=== PATIENT | female | born 1965 | race Caucasian/White ===

== ENCOUNTER 2022-12-22 09:32 | Emergency (ER) | payer BC ==
--- OUTSIDE RECORDS SUMMARY | 2022-12-22 09:34 | XMS REPORT | Continuity of Care Document ---
:1965 Author Organization [facility] t Address [address] [place] [address] Care Team Providers Name Role Phone JN PALUMBO Primary Care Physician Unavailable Arvind Arteaga MD Attending Clinician ARVIND ARTEAGA Attending Clinician Unavailable ARVIND ARTEAGA Admitting Clinician Unavailable Payers Payer Name Policy Type Policy Number Effective Date Expiration Date S ource Problems This patient has no known problems. Allergies, Adverse Reactions, Alerts Allergy Allergy Status Severity Reaction(s) Onset Inactive Treating Comm ents Source Name Type Date Date Clinician Amoxicil Propensi Active Nausea Univer s meenakshi-Pot ty to and/or 5-11 ity of Clavulan adverse Vomiting 00:00: [place] ate reaction 00 Medical s Branch AMOXICIL DRUG Active N/V Univers MEENAKSHI-POT 5-11 ity of CLAVULAN 00:00: [place] ATE 00 Medical Branch NO KNOWN Drug Active Univers ALLERGIE Class ity of S [place] [facility] Social History Social Habit Start Date Stop Date Quantity Comments Source Exposure to 2022-09-19 2022-09-29 Not sure [facility] SARS-CoV-2 (event) 00:00:00 09:38:00 Medica l Branch Sex Ass[birth year] [facility] 00:00:00 00:00:00 Medical Branch Smoking Status Start Date Stop Date Source Tobacco smoking consumption Univ [facility] Medical unknown Branch Medications Ordered Filled Start Stop Current Ordering Indication Dosage Frequency Signature Comments Components Source Medication Medication Date Date Medication? Clinician (SIG) Name Name FENTanyl PF 2022- No 75ug 75 mcg, Un elaina (SUBLIMAZE 5-11 05-11 Intramuscu it y of (PF)) 16:30: 15:42 lar, ONCE, [place] injection 00 :00 1 dose, On Medi olivia 75 mcg [facility] Branch 09/29/22 at 1130, STAT ketorolac 2022- No 30mg 30 mg, Unive rs (TORADOL) 09-29 Intramuscu ity of injection 16:30: 15:41 lar, ONCE, [place] 30 mg 00 :00 1 dose, On Medical Nannette Branch 09/29/22 at 1130, ALEIDA HYDROcodone 2022- Yes [id number] 1{tbl} Take 1 U nivers -acetaminop 09-29 tablet by it y of hen (NORCO) 00:00: 04:59 [place] 10-325 mg 00 :00 every 6 Medical tablet (six) Branch hours as needed for Pain (scale 4-6) for up to 7 days. Indication s: acute pain predniSONE 2022- Yes [id number] 20mg Take 1 Univers 20 mg 09-29 tablet by ity of tablet 00:00: 04:59 mouth [place] 00 :00 every Medical morning Branch for 5 days. Vital Signs Vital Name Observation Time Observation Value Comments Source Heart rate 2022-09-29 17:17:00 82 /min [facility] Respiratory rate 2022-09-29 17:17:00 18 /min [facility] Oxygen saturation in 2022-09-29 17:17:00 98 /min [facility] Arterial blood by [facility] Pulse oximetry Branch Systolic blood 2022-09-29 14:39:00 129 mm[Hg] Univer sity of pressure [facility] Diastolic blood 2022-09-29 14:39:00 88 mm[Hg] [facility] Body temperature 2022-09-29 14:39:00 37.11 Kassidy [facility] Body height 2022-09-29 14:39:00 167.6 cm [facility] Body weight 2022-09-29 14:39:00 81.647 kg [facility] BMI 2022-09-29 14:39:00 29.05 kg/m2 [facility] Procedures Procedure Date / Time Performed Performing Clinician Baldo carolina XR ANKLE 3+ VW LEFT 2022-09-29 16:00:00 Arvind Arteaga [facility] XR KNEE 3 VW LEFT 2022-09-29 16:00:00 Arvind Arteaga [facility] NOTICE OF PRIVACY 2022-09-29 14:33:24 Doctor Unassigned, No [facility] Name [facility] CONSENT/REFUSAL FOR 2022-09-29 14:32:45 Doctor Unassigned, No [facility] Name [facility] TREATMENT Encounters Start End Encounter Admission Attending Care Care Encounter Source Date/Time Date/Time Type Type Clinicians Facility Department ID 2022-09-29 2022-09-29 Emergency GORDY Arteaga [id number] Univers 09:40:00 12:18:00 Arvind ATWOOD [id number] i [facility] [id number] [facility] [id number] [facility] 084 Branch 2022-09-29 2022-09-29 Emergency X GORDY ARTEAGA ERT [id number] Univers 09:40:00 12:18:00 ARVIND kaur [facility] Results This patient has no known results.
[2022-12-22] MEDS ORDERED: ACETAMINOPHEN 500 MG TAB ONE (10:56)
--- NOTE | 2022-12-22 11:21 | RAD REPORT ---
EXAM DESCRIPTION: Anna Marie Single View12/22/2022 11:07 am CLINICAL HISTORY: cough COMPARISON: none FINDINGS: The lungs appear clear of acute infiltrate. The heart is normal size IMPRESSION: No acute abnormalities displayed
--- NOTE | 2022-12-22 11:22 | ER ---
Nurse's Notes [facility] Name: Maria Isabel Mills Age: 57 yrs Sex: Female : 1965 Arrival Date: 12/22/2022 Time: 09:32 Bed 6 Private MD: Jose Patel Diagnosis: Acute upper respiratory infection, unspecified Presentation: 12/22 09:43 Chief complaint: Patient states: cough, sore throat, body aches, fever. Coronavirus me1 screen: Vaccine status: Patient reports receiving the 2nd dose of the covid vaccine. cough unrelated to allergies, fatigue, fever, muscle pain. Ebola Screen: No symptoms or risks identified at this time. Initial Sepsis Screen: Does the patient meet any 2 criteria? No. Patient's initial sepsis screen is negative. Does the patient have a suspected source of infection? No. Patient's initial sepsis screen is negative. Risk Assessment: Do you want to hurt yourself or someone else? Patient reports no desire to harm self or others. Onset of symptoms was December 22, 2022. 09:43 Method Of Arrival: [place] [facility] 09:43 Acuity: TOMASZ 4 [facility] Triage Assessment: 09:57 General: Appears uncomfortable, ill, Behavior is calm, cooperative, appropriate for [facility] age. General: Reports chills for fever for feeling ill for fatigue for dry cough, sore throat that started yesterday. Pain: Complains of pain in generalized body aches. EENT: Reports sore throat. Neuro: Level of Consciousness is awake, alert, obeys commands, Oriented to person, place, time, situation. Cardiovascular: Capillary refill < 3 seconds Patient's skin is warm and dry. Respiratory: Respiratory effort is even, unlabored, Respiratory pattern is regular, symmetrical. Historical: - Allergies: 09:57 No Known Allergies; me1 09:52 No Known Allergies; dd1 - Home Meds: 09:52 omeprazole 10 mg Oral capsule,delayed release (e.c.) once for heartburn [Active]; dd1 Wellbutrin Oral for Unknown Reason [Active]; levothyroxine 100 mcg capsule 1 cap once for hypothyroidism [Active]; gabapentin 300 mg oral Tablet, Extended Release 24 hr once [Active]; - PMHx: 09:57 Hypothyroidism; GERD; Depression; me1 09:52 GERD; Depression; Hypothyroidism; dd1 - PSHx: 09:57 gastric sleeve; me1 09:52 section; Cholecystectomy; Operative procedure on knee; dd1 - Immunization history:: Adult Immunizations up to date, Adult Immunizations . - Social history:: Smoking status: Patient/guardian denies using tobacco, Stopped _ months ago 4 Smoking status: Patient/guardian denies using tobacco, Stopped _ months ago 3. Screenin:00 [facility] ED Fall Risk Assessment (Adult) History of falling in the last 3 months, ko1 including since admission No falls in past 3 months (0 pts) Confusion or Disorientation No (0 pts) Intoxicated or Sedated No (0 pts) Impaired Gait No (0 pts) Mobility Assist Device Used No (0 pt) Altered Elimination No (0 pt) Score/Fall Risk Level 0 - 2 = Low Risk Oriented to surroundings, Maintained a safe environment, Educated pt \T\ family on fall prevention, incl call for assistance when getting out of bed, Assessed \T\ reinforced patient's understanding of fall precautions, Provided non-skid footwear, Hourly rounding (assess needs \T\ fall precautionary measures) done, Used ambulatory aids as needed (educated on \T\ assisted with), Used gait belt as appropriate. Abuse screen: Denies threats or abuse. Denies injuries from another. Nutritional screening: No deficits noted. Tuberculosis screening: No symptoms or risk factors identified. Assessment: 10:00 General: Appears in no apparent distress. uncomfortable, ill, Behavior is calm, ko1 cooperative, appropriate for age. Pain: Complains of pain in generalized. Neuro: No deficits noted. Cardiovascular: No deficits noted. Respiratory: Reports cough that is non-productive. GI: No deficits noted. : No deficits noted. EENT: Reports nasal congestion pain in forehead. Derm: No deficits noted. Musculoskeletal: No deficits noted. Vital Signs: 09:45 BP 99 / 75; Pulse 82; Resp 17; Temp 98.7; Pulse Ox 100% ; Weight 81.19 kg; Height 5 ft. me1 6 in. ; 09:58 BP 119 / 71; Pulse 75; Resp 16; Temp 99.6; Pulse Ox 98% ; Weight 81.65 kg; Height 5 ft. dd1 6 in. ; Pain 7/10; 11:06 BP 144 / 88; Pulse 78; Resp 18; Pulse Ox 99% ; ko1 09:58 Body Mass Index 29.05 (81.65 kg, 167.64 cm) dd1 09:58 Pain Scale: Adult dd1 ED Course: 09:34 Patient arrived in ED. mr 09:34 Jose Patel MD is Private Physician. mr 09:35 Roma Burks FNP-C is [facility]. kb 09:36 Ariel Sun MD is Attending Physician. kb 09:41 Suzanne Valera, RN is Primary Nurse. ko1 09:45 Triage completed. me1 09:45 Arm band placed on Patient placed in waiting room. me1 09:52 SARS-COV-2 RT PCR Sent. dd1 09:52 Flu Sent. dd1 10:00 SARS-COV-2 RT PCR Sent. dd1 10:00 Flu Sent. dd1 10:00 Patient has correct armband on for positive identification. Bed in low position. Call ko1 light in reach. Provided Education on: na. Pulse ox on. NIBP on. Door closed. Noise minimized. Warm blanket given. 11:09 Chest Single View XRAY In Process Unspecified. EDMS 11:28 No provider procedures requiring assistance completed. IV discontinued, intact, ko1 bleeding controlled, No redness/swelling at site. Pressure dressing applied. Administered Medications: 10:49 Drug: Acetaminophen PO 1000 mg Route: PO; ko1 Medication: 10:00 VIS not applicable for this client. ko1 Outcome: 11:21 Discharge ordered by . kb 11:35 Discharged to home ambulatory. ko1 11:35 Condition: stable 11:35 Discharge instructions given to patient, Instructed on discharge instructions, follow up and referral plans. Demonstrated understanding of instructions, follow-up care. 11:35 Patient left the ED. ko1 Signatures: Dispatcher [employer] EDMS Roma Burks FNP-C FNP-Riaz GamaAna mr Suzanne Valera, RN RN ko1 Jenni Alonzo RN RN me1 Joshua Lynn RN RN dd1
--- NOTE | 2022-12-22 11:22 | EDPHYS ---
Physician Documentation [facility] Name: Maria Isabel Mills Age: 57 yrs Sex: Female : 1965 Arrival Date: 12/22/2022 Time: 09:32 Bed 6 Private MD: Jose Patel ED Physician Ariel Sun HPI: 12/22 12:23 This 57 yrs old Female presents to ER via Ambulatory with complaints of Cough. kb 12:23 The patient or guardian reports cough, that is intermittent, described as mild, flu kb symptoms, low-grade fever, myalgias. Onset: The symptoms/episode began/occurred last night. Severity of symptoms: At their worst the symptoms were moderate, in the emergency department the symptoms are unchanged. Modifying factors: The symptoms are alleviated by nothing, the symptoms are aggravated by nothing. Associated signs and symptoms: Pertinent positives: fever, rhinorrhea. The patient has not experienced similar symptoms in the past. The patient has not recently seen a physician. Pt reports cough, congestion, fever, chills, and bodyaches that started last night and were worse this morning. . Historical: - Allergies: 09:57 No Known Allergies; me1 09:52 No Known Allergies; dd1 - Home Meds: 09:52 omeprazole 10 mg Oral capsule,delayed release (e.c.) once for heartburn [Active]; dd1 Wellbutrin Oral for Unknown Reason [Active]; levothyroxine 100 mcg capsule 1 cap once for hypothyroidism [Active]; gabapentin 300 mg oral Tablet, Extended Release 24 hr once [Active]; - PMHx: 09:57 Hypothyroidism; GERD; Depression; me1 09:52 GERD; Depression; Hypothyroidism; dd1 - PSHx: 09:57 gastric sleeve; me1 09:52 section; Cholecystectomy; Operative procedure on knee; dd1 - Immunization history:: Adult Immunizations up to date, Adult Immunizations . - Social history:: Smoking status: Patient/guardian denies using tobacco, Stopped _ months ago 4 Smoking status: Patient/guardian denies using tobacco, Stopped _ months ago 3. ROS: 12:08 Abdomen/GI: Negative for abdominal pain, nausea, vomiting, diarrhea, and constipation. kb 12:08 Constitutional: Positive for body aches, chills, fever, malaise. 12:08 ENT: Positive for rhinorrhea, sinus congestion. 12:08 Respiratory: Positive for cough. 12:08 All other systems are negative. Exam: 12:08 Constitutional: This is a well developed, well nourished patient who is awake, alert, kb and in no acute distress. Head/Face: Normocephalic, atraumatic. ENT: Moist Mucous membranes Cardiovascular: Regular rate and rhythm with a normal S1 and S2. No gallops, murmurs, or rubs. No pulse deficits. Respiratory: Respirations even and unlabored. No increased work of breathing. Talking in full sentences Skin: Warm, dry with normal turgor. Normal color. MS/ Extremity: Pulses equal, no cyanosis. Neurovascular intact. Full, normal range of motion. Neuro: Awake and alert, GCS 15, oriented to person, place, time, and situation. Moves all extremities. Normal gait. Vital Signs: 09:45 BP 99 / 75; Pulse 82; Resp 17; Temp 98.7; Pulse Ox 100% ; Weight 81.19 kg; Height 5 ft. me1 6 in. ; 09:58 BP 119 / 71; Pulse 75; Resp 16; Temp 99.6; Pulse Ox 98% ; Weight 81.65 kg; Height 5 ft. dd1 6 in. ; Pain 7/10; 11:06 BP 144 / 88; Pulse 78; Resp 18; Pulse Ox 99% ; ko1 09:58 Body Mass Index 29.05 (81.65 kg, 167.64 cm) dd1 09:58 Pain Scale: Adult dd1 MDM: 09:36 Patient medically screened. kb 12:09 Data reviewed: vital signs, nurses notes. kb 12:23 Differential Diagnosis: Bronchitis Influenza Upper Respiratory Infection Pneumonia kb Other covid. Counseling: I had a detailed discussion with the patient and/or guardian regarding: the historical points, exam findings, and any diagnostic results supporting the discharge/admit diagnosis, lab results, radiology results, the need for outpatient follow up, a family practitioner, to return to the emergency department if symptoms worsen or persist or if there are any questions or concerns that arise at home. 12/22 09:39 Order name: Flu; Complete Time: 10:35 kb 12/22 09:39 Order name: SARS-COV-2 RT PCR; Complete Time: 10:35 kb 12/22 10:35 Order name: Chest Single View XRAY; Complete Time: 11:21 kb Administered Medications: 10:49 Drug: Acetaminophen PO 1000 mg Route: PO; ko1 Disposition: 16:49 I reviewed the patient's care provided by Advanced Practice Provider \T\ agree w/ the cp3 diagnosis \T\ care plan. I personally saw the pt \T\ performed a substantive portion of the visit, incldng all aspects of the (History/Exam/Medical Decision Making). Disposition Summary: 12/22/22 11:21 Discharge Ordered Location: Home kb Condition: Stable kb Diagnosis - Acute upper respiratory infection, unspecified kb Followup: kb - With: Emergency Department - When: As needed - Reason: Worsening of condition Followup: kb - With: Private Physician - When: 2 - 3 days - Reason: Recheck today's complaints, Continuance of care, Re-evaluation by your physician Discharge Instructions: - Discharge Summary Sheet kb - Upper Respiratory Infection, Adult, [id number] kb - Viral Respiratory Infection, [id number] kb Forms: - Work release form kb - Medication Reconciliation Form kb - Thank You Letter kb - Antibiotic Education kb - Prescription Opioid Use kb - Patient Portal Instructions kb Signatures: Dispatcher [employer] Roma Juan, PROFESSOR OF FINANCE-C PROFESSOR OF FINANCE-Ariel Angel MD MD cp3 Suzanne Valera, IVAN RN ko1 Jenni Alonzo RN RN me1 Joshua Lynn, RN RN dd1
[2022-12-22 11:41] VITALS: TEMP 99.6
[2022-12-22 11:42] VITALS: BP 144/88; O2SAT 99
== END 2022-12-22 11:35 | disposition home or self-care (01) ==
LOC: ER 09:32
DX: J06.9 Acute upper respiratory infection, unspecified (principal); E03.9 Hypothyroidism, unspecified; F32.A Depression, unspecified; Z20.822 Contact with and (suspected) exposure to COVID-19
CPT/HCPCS: 71045; 87635; 87804; 99284

== ENCOUNTER 2023-02-24 16:33 | Emergency (ER) | payer BC ==
--- OUTSIDE RECORDS SUMMARY | 2023-02-24 16:35 | XMS REPORT | Continuity of Care Document ---
:1965 Author Organization [facility] t Address [address] [place] [address] [address] [place] [address] Care Team Providers Name Role Phone MADISONJN PONCE Yasmeen Primary Care Physician Unavailable Rocio Norman DO Attending Clinician ROCIO NORMAN Attending Clinician Unavailable GERDA LANDAVERDE Attending Clinician Unavailable Gerda Landaverde NP Attending Clinician Paco Arteaga MD Attending Clinician PACO ARTEAGA Attending Clinician Unavailable ROCIO NORMAN Admitting Clinician Unavailable GERDA LANDAVERDE Admitting Clinician Unavailable PACO ARTEAGA Admitting Clinician Unavailable Payers Payer Name Policy Type Policy Number Effective Date Expiration Date S ource Problems This patient has no known problems. Allergies, Adverse Reactions, Alerts Allergy Allergy Status Severity Reaction(s) Onset Inactive Treating Comm ents Source Name Type Date Date Clinician Amoxicil Propensi Active Nausea [facility] meenakshi-Pot ty to and/or 5-11 ity of Clavulan adverse Vomiting 00:00: [place] ate reaction 00 [facility] AMOXICIL DRUG Active N/V Univers MEENAKSHI-POT 5-11 ity of CLAVULAN 00:00: [place] ATE 00 [facility] NO KNOWN Drug Active Univers ALLERGIE Class [facility] Social History Social Habit Start Date Stop Date Quantity Comments Source Gender identity [facility] Sexual orientation [facility] Exposure to 2022-09-19 2022-09-29 Not sure [facility] SARS-CoV-2 (event) 00:00:00 09:38:00 Medica l Branch Sex Ass[birth year] At [birth year] [facility] 00:00:00 00:00:00 Medical Branch Smoking Status Start Date Stop Date Source Tobacco smoking consumption [facility] Branch Medications Ordered Filled Start Stop Current Ordering Indication Dosage Frequency Signature Comments Components Source Medication Medication Date Date Medication? Clinician (SIG) Name Name albuterol No 2.5mg 2.5 mg, Uni vers (PROVENTIL) 12-28 Inhalation i ty of 2.5 mg /3 15:15: 14:16 , ONCE, 1 [place] mL (0.083 00 :00 dose, On Medica l %) [facility] 12/28/22 Branch nebulizer at 1015, solution STAT 2.5 mg omeprazole Yes 40mg 40 mg, Unive rs (PRILOSEC) 12-26 Oral, ity of capsule 40 14:00: DAILY, [place] mg 00 First dose Medical on Mon Branch 12/26/22 at 0900, Until Discontinu ed, Routine levoFLOXaci No 750mg 750 mg, U nivers n 12-26 Oral, ONCE ity of (LEVAQUIN) 03:30: 02:50 NOW, 1 [place] tablet 750 00 :00 dose, On Medic al mg [place] 12/25/22 [place] at 2230, ALEIDA
Re ason for Anti-Infec tive: Documented Infection< br>Documen zain Infection Site: Respirator y
Durat ion of Therapy: 7 days acetaminoph No 1000mg 1,000 mg, Univers en 12-26 Oral, ity of (TYLENOL) 02:45: 02:49 ONCE, 1 [place] tablet [place] :00 dose, On Medical 1,000 mg [place] 12/25/22 Branc h at 2145, ALEIDA iopamidol 2022- No [id number] 75mL 75 mL, U nivers (ISOVUE 12-26 Intravenou ity o f 370-500 mL) 02:45: 02:45 s, ONCE, 1 [place] injection 00 :00 dose, On Medica l 75 mL [place] 12/25/22 Branch at 2145, Routine ketorolac 2022- No 30mg 30 mg, Unive rs (TORADOL) 12-26 Slow IV ity of injection 02:30: 01:33 Push, [place] 30 mg 00 :00 ONCE, 1 Medical dose, On Branch [place] 12/25/22 at 2130, Routine diphenhydrA 2022- No 25mg 25 mg, Uni vers MINE 12-26 Slow IV ity of (BENADRYL) 01:30: 01:34 Push, [place] injection 00 :00 ONCE, 1 Medical 25 mg dose, On Branch [place] 12/25/22 at 2030, STAT metoclopram 2022- No 10mg 10 mg, Uni vers simran HCl 12-26 Slow IV ity of (REGLAN) 01:30: 01:34 Push, [place] injection 00 :00 ONCE, 1 Medical 10 mg dose, On Branch [place] 12/25/22 at 2030, ALEIDA NaCl 0.9% 2022- No 1000mL at 999 Uni vers (NS) bolus 12-25 mL/hr, ity of infusion 23:15: 03:00 1,000 mL, [place] as 1,000 mL 00 :00 IV Medical Infusion, Branch ONCE, 1 dose, On [place] 12/25/22 at 1815, ALEIDA ipratropium 2022- No 3mL 3 mL, Univ ers -albuteroL 12-25 Inhalation it y of (DUONEB) 23:15: 01:27 , ONCE [place] 0.5 mg-3 00 :00 NOW, 1 Medical mg(2.5 mg dose, On Branch base)/3 mL [place] 12/25/22 nebulizer at 1815, solution 3 Routine mL dexamethaso 2022- No 10mg 10 mg, Uni vers ne sod phos 12-25 Slow IV ity of PF 22:30: 01:27 Push, [place] injection 00 :00 ONCE, 1 Medical 10 mg dose, On Branch [place] 12/25/22 at 1730, 1 mL levothyroxi Yes Univer s ne 100 mcg 12-25 ity of injection 22:22: [place] 20 Medical Branch levothyroxi 2023-0 Yes Univer s ne 100 mcg 8-06 ity of injection 22:22: [place] 20 Medical Branch benzonatate 3-0 Yes [id number] 200mg Take 2 Univers 100 mg 8-06 capsules ity of capsule 00:00: [place] mouth 3 [place] 00 (three) Medical times Branch daily as needed for Cough. ipratropium 3-0 Yes [id number] .5mg Inhale 2.5 Univers 0.02 % 8-06 mL every 8 ity of nebulizer 00:00: (eight) [place] solution 00 hours as Medical needed for Branch Wheezing, Shortness of Breath, Bronchospa sm or Chest tightness. albuterol 2022-0 Yes [id number] 2.5mg Inhale 3 Univers 2.5 mg /3 8-06 mL every 4 ity of mL (0.083 00:00: (four) [place] %) 00 hours as Medical nebulizer needed for Bran ch solution Wheezing, Shortness of Breath, Bronchospa sm or Chest tightness. May also nebulize one extra every 6 hours. benzonatate 3-0 Yes [id number] 200mg Take 2 Univers 100 mg 8-06 capsules ity of capsule 00:00: by mouth 3 [place] 00 (three) Medical times Branch daily as needed for Cough. ipratropium 2022-0 Yes [id number] .5mg Inhale 2.5 Univers 0.02 % 8-06 mL every 8 ity of nebulizer 00:00: (eight) [place] solution 00 hours as Medical needed for Branch Wheezing, Shortness of Breath, Bronchospa sm or Chest tightness. albuterol 3-0 Yes [id number] 2.5mg Inhale 3 Univers 2.5 mg /3 8-06 mL every 4 ity of mL (0.083 00:00: (four) [place] %) 00 hours as Medical nebulizer needed for Bran ch solution Wheezing, Shortness of Breath, Bronchospa sm or Chest tightness. May also nebulize one extra every 6 hours. levoFLOXaci 3-0 2023- Yes [id number] 750mg Take 1 Univers n 750 mg 12-25 08-14 tablet by ity o f tablet 00:00: 04:59 mouth [place] 00 :00 every 24 Medical (twenty-fo Branch ur) hours for 7 days. codeine-gua 2022- Yes 10mL Take 10 mL Univers ifenesin 12-2514 by mouth ity of 10-100 mg/5 00:00: 04:59 every 6 [place] mL oral 00 :00 (six) Medical solution hours as Branch needed for Cough for up to 7 days. Indication s: cough levoFLOXaci 2022- Yes [id number] 750mg Take 1 Univers n 750 mg 12-25 tablet by ity o f tablet 00:00: 04:59 mouth [place] 00 :00 every 24 Medical (twenty-fo Branch ur) hours for 7 days. codeine-gua 2022- Yes 10mL Take 10 mL Univers ifenesin 12-25 by mouth ity of 10-100 mg/5 00:00: 04:59 every 6 [place] mL oral 00 :00 (six) Medical solution hours as Branch needed for Cough for up to 7 days. Indication s: cough predniSONE 2022- Yes [id number] 20mg Take 1 Univers 20 mg 12-25 tablet by ity of tablet 00:00: 04:59 mouth in [place] 00 :00 the Medical morning Branch and 1 tablet in the evening. Do all this for 5 days. predniSONE 2022- Yes [id number] 20mg Take 1 Univers 20 mg 12-25 tablet by ity of tablet 00:00: 04:59 mouth in [place] 00 :00 the Medical morning Branch and 1 tablet in the evening. Do all this for 5 days. ergocalcife 2022-0 Yes [facility] s rol, - ity of vitamin d2, 00:00: [place] 1,250 mcg 00 Medical (50,000 Branch unit) capsule ergocalcife 2022-0 Yes Univer s rol, 6-06 ity of vitamin d2, 00:00: [place] 1,250 mcg 00 Medical (50,000 Branch unit) capsule LORazepam 2022-0 Yes TAKE ONE Univ ers 0.5 mg 6-01 (1) ity of tablet 00:00: TABLET(S) [place] 00 BY MOUTH Medical DAILY Branch NEEDED. LORazepam 2022-0 Yes TAKE ONE Univ ers 0.5 mg 6-01 (1) ity of tablet 00:00: TABLET(S) [place] 00 BY MOUTH Medical DAILY Branch NEEDED. atorvastati Yes 20mg Take 1 Univ ers n 20 mg 5-31 tablet by ity of tablet 00:00: mouth in [place] 00 the Medical morning. Branch atorvastati Yes 20mg Take 1 Univ ers n 20 mg 5-31 tablet by ity of tablet 00:00: mouth in [place] 00 the Medical morning. Branch FENTanyl PF 2022- No 75ug 75 mcg, Un elaina (SUBLIMAZE 09-29 Intramuscu it y of (PF)) 16:30: 15:42 lar, ONCE, [place] injection 00 :00 1 dose, On Medi olivia 75 mcg [place] Branch 09/29/22 at 1130, STAT ketorolac 2022- No 30mg 30 mg, Unive rs (TORADOL) 09-29 Intramuscu ity of injection 16:30: 15:41 lar, ONCE, [place] 30 mg 00 :00 1 dose, On Medical [place] Branch 09/29/22 at 1130, ALEIDA HYDROcodone 2022- No [id number] 1{tbl} Take 1 U nivers -acetaminop 09-29 tablet by it y of hen (NORCO) 00:00: 04:59 mouth [place] 10-325 mg 00 :00 every 6 Medical tablet (six) Branch hours as needed for Pain (scale 4-6) for up to 7 days. Indication s: acute pain predniSONE 2022- No [id number] 20mg Take 1 Univers 20 mg 09-29 tablet by ity of tablet 00:00: 04:59 mouth [place] 00 :00 every Medical morning Branch for 5 days. buPROPion Yes Univers SR 5-11 ity of (WELLBUTRIN 00:00: [place] SR) 150 mg 00 Medical SR tablet Branch gabapentin Yes Univers 100 mg 5-11 ity of capsule 00:00: Medical Branch buPROPion Yes Univers SR 5-11 ity of (WELLBUTRIN 00:00: [place] SR) 150 mg 00 Medical SR tablet Branch gabapentin Yes Univers 100 mg 5-11 ity of capsule 00:00: [place] [facility] Vital Signs Vital Name Observation Time Observation Value Comments Source Respiratory rate 2022-12-28 14:23:00 18 /min Univ ers[facility] [place] [facility] Oxygen saturation in 2022-12-28 14:23:00 96 /min University of Arterial blood by [facility] Pulse oximetry Branch Systolic blood 2022-12-28 13:58:00 147 mm[Hg] Univer sity of pressure [place] [facility] Diastolic blood 2022-12-28 13:58:00 95 mm[Hg] Unive rsity of pressure [place] [facility] Heart rate 2022-12-28 13:58:00 73 /min [facility] [place] [facility] Body temperature 2022-12-28 13:58:00 36.72 Kassidy Univ [facility] [place] [facility] Body height 2022-12-28 13:58:00 167.6 cm [facility] [place] [facility] Body weight 2022-12-28 13:58:00 81.647 kg [facility] [place] [facility] BMI 2022-12-28 13:58:00 29.05 kg/m2 [facility] [place] [facility] Systolic blood 2022-12-26 03:19:00 132 mm[Hg] Univer sity of pressure [place] [facility] Diastolic blood 2022-12-26 03:19:00 81 mm[Hg] Unive rsity of pressure [place] [facility] Heart rate 2022-12-26 03:19:00 77 /min [facility] [place] [facility] Body temperature 2022-12-26 03:19:00 37.89 Kassidy [facility] [place] [facility] Respiratory rate 2022-12-26 03:19:00 23 /min Univ [facility] [place] [facility] Oxygen saturation in 2022-12-26 03:19:00 96 /min University of Arterial blood by [facility] Pulse oximetry Branch Body weight 2022-12-25 22:07:00 81.647 kg [facility] [place] [facility] BMI 2022-12-25 22:07:00 29.05 kg/m2 [facility] [place] [facility] Respiratory rate 2022-09-29 17:17:00 18 /min Univ [facility] [place] [facility] Oxygen saturation in 2022-09-29 17:17:00 98 /min University of Arterial blood by [facility] Pulse oximetry Branch Heart rate 2022-09-29 17:17:00 82 /min [facility] Systolic blood 2022-09-29 14:39:00 129 mm[Hg] Univer sity of pressure [facility] Diastolic blood 2022-09-29 14:39:00 88 mm[Hg] Unive rsity of pressure [facility] Body temperature 2022-09-29 14:39:00 37.11 Kassidy [facility] Body height 2022-09-29 14:39:00 167.6 cm [facility] Body weight 2022-09-29 14:39:00 81.647 kg [facility] BMI 2022-09-29 14:39:00 29.05 kg/m2 [facility] Procedures Procedure Date / Time Performed Performing Clinician [facility] e CONSENT/REFUSAL FOR 2022-12-28 13:53:15 Doctor Unassigned, No Un [facility] DIAGNOSIS AND Name Medical [place] TREATMENT CT CHEST PULMONARY 2022-12-26 01:52:00 Gerda Landaverde [facility] ANGIOGRAM Medical Branch ASSIGNMENT OF BENEFITS 2022-12-26 01:10:26 Doctor Unassigned, No [facility] Name Medical Branch LIPASE 2022-12-26 00:04:00 Gerda Landaverde [facility] TROPONIN I 2022-12-26 00:04:00 Gerda Landaverde [facility] COMP. METABOLIC PANEL 2022-12-26 00:04:00 Gerda Landaverde [facility] ([id number]) [facility] CBC WITH DIFF 2022-12-26 00:04:00 Gerda Landaverde [facility] D-DIMER 2022-12-26 00:04:00 Gerda Landaverde [facility] URINALYSIS 2022-12-26 00:04:00 Gerda Landaverde [facility] RAPID STREP SCREEN FOR 2022-12-26 00:04:00 Gerda Landaverde [facility] GROUP A Medical Branch RAPID INFLUENZA A/B 2022-12-26 00:04:00 Gerda Landaverde [facility] COVID-19 (ID NOW RAPID 2022-12-26 00:04:00 Gerda Landaverde [facility] TESTING) Medical Branch XR CHEST 2 VW 2022-12-25 22:45:08 Gerda Landaverde [facility] CONSENT/REFUSAL FOR 2022-12-25 22:04:08 Doctor Unassigned, No [facility] [place] DI[facility] AND Name Medical Branch TREATMENT XR ANKLE 3+ VW LEFT 2022-09-29 16:00:00 Paco Arteaga [facility] [place] [facility] XR KNEE 3 VW LEFT 2022-09-29 16:00:00 Paco Arteaga [facility] NOTICE OF PRIVACY 2022-09-29 14:33:24 Doctor Unassigned, No [facility] PRACTICES Name Medical Branch CONSENT/REFUSAL FOR 2022-09-29 14:32:45 Doctor Unassigned, No [facility] [place] DIAGNOSIS AND Name Medical Branch TREATMENT Encounters Start End Encounter Admission Attending Care Care Encounter Source Date/Time Date/Time Type Type Clinicians Facility Department ID 2022-12-28 2022-12-28 [id number] Univers 09:00:00 11:23:00 Rocio ATWOOD [id number] i ty [facility] [id number] [facility] [id number] [address] 2022-12-28 2022-12-28 [facility] [id number] Univers 09:00:00 11:23:00 [facility] 2022-12-25 2022-12-25 [facility] [id number] Univers 17:09:00 22:21:00 [facility] 2022-12-25 2022-12-25 [facility] [id number] Univers 17:09:00 22:21:00 Gerda ATWOOD [id number] ity [facility] [id number] [facility] [id number] [address] 2022-09-29 2022-09-29 [facility] [id number] Univers 09:40:00 12:18:00 Paco ATWOOD [id number] i ty of [place] [id number] [facility] [id number] [place] [id number] Branch 2022-09-29 2022-09-29 Emergency X IRINEO [facility] ERT [id number] Univers 09:40:00 12:18:00 PACO [facility]aur [facility] Results This patient has no known results.
[2023-02-24] MEDS ORDERED: MORPHINE 4 MG/ML SYR ONE (16:59)
[2023-02-24] MEDS ORDERED: NA CHLORIDE 0.9% 1,000 ML ONE (16:59)
[2023-02-24] MEDS ORDERED: ONDANSETRON 4 MG/2 ML VIAL ONE (16:59)
[2023-02-24 17:04] LABS: Absolute Lymphocytes (CBC) 3.6 K/uL (0.7-4.9); Hematocrit 38.6 % (36.0-45.0); Lymphocytes % 38.2 % (15.3-44.8); MPV 8.4 fL (7.6-11.3); Platelets 315 thou/uL (152-406); RBC Red Blood Cell Count 4.59 M/uL (3.86-4.86)
[2023-02-24 17:19] LABS: Albumin 3.6 g/dL (3.4-5.0); Bilirubin Total 0.3 mg/dL (0.2-1.0); Potassium 3.7 mEq/L (3.5-5.1); Protein, Total 7.2 g/dL (6.4-8.2)
[2023-02-24 17:51] LABS: Specific Gravity 1.007 (1.005-1.030); Urine Bacteria None Seen /HPF (<20); Urine Bilirubin NEGATIVE (Negative); Urine Blood Negative (Negative); Urine Clarity Turbid (Clear); Urine Color Colorless (Yellow); Urine Glucose NEGATIVE (Negative); Urine Protein NEGATIVE (Negative); Urine RBC <5 /HPF (None Seen); Urine Urobilinogen Normal (Normal)
--- NOTE | 2023-02-24 17:58 | RAD REPORT ---
EXAM DESCRIPTION: CT - Abdomen Pelvis W Contrast - 02/24/2023 5:47 pm CLINICAL HISTORY: Abdominal pain COMPARISON: none. TECHNIQUE: Computed axial tomography of the abdomen pelvis was obtained. 100 cc Isovue-300 was admin istered intravenously. Oral contrast was not requested which limits evaluation of bowel and appendix All CT scans are performed using dose optimization technique as appropriate and may include automated exposure control or mA/KV adjustment according to patient size. FINDINGS: Cholecystectomy. Postsurgical changes involve the stomach The liver,, pancreas, and adrenals appear unremarkable. Sub centimeter low-density splenic lesion Mild prominence of bilateral extrarenal pelves There is no evidence of diverticulitis. Normal appendix. No adnexal mass IMPRESSION: Mild prominence of bilateral extrarenal pelves may be physiologic. Mild partial UPJ obst ructions can have a similar appearance. Sub centimeter splenic lesion is nonspecific but probably benign.
[2023-02-24] MEDS ORDERED: DICYCLOMINE HCL 20 MG/2 ML AMP IM ONE (18:38)
[2023-02-24] MEDS ORDERED: FENTANYL CITR 100 MCG/2 ML ONE (18:38)
--- NOTE | 2023-02-24 20:12 | RAD REPORT ---
EXAM DESCRIPTION: US - Transvaginal Study Probe - 02/24/2023 7:50 pm CLINICAL HISTORY: Right pelvic pain COMPARISON: none FINDINGS: The uterus measures 6 x 3 x 4 cm. A fibroid is not seen. The endometrial stripe measures Right ovary normal in size and echotexture. Left ovary not seen secondary to overlying bowel gas The right and left adnexa unremarkable No significant free fluid is seen. IMPRESSION: Unremarkable pelvic ultrasound
--- NOTE | 2023-02-24 20:27 | EDPHYS ---
Physician Documentation [facility] Name: Maria Isabel Mills Age: 57 yrs Sex: Female : 1965 Arrival Date: 02/24/2023 Time: 16:33 Bed 12 Private MD: ED Physician Obey Cruz HPI: 02/24 16:46 This 57 yrs old Female presents to ER via Ambulatory with complaints of Abdominal Pain, sb4 Vomiting. 16:46 The patient presents with abdominal pain right lower quadrant. Onset: The sb4 symptoms/episode began/occurred 3 day(s) ago. The symptoms do not radiate. Associated signs and symptoms: Pertinent positives: nausea and vomiting, Pertinent negatives: diarrhea, dysuria, fever, hematuria. Patient reports right lower quadrant abdominal pain that began 3 days ago and is worsening. She endorses nausea and vomiting but declines any diarrhea or fever. Has a history of a cholecystectomy. Historical: - Allergies: 16:46 Augmentin; hb 16:46 Ultram; hb 16:46 tramadol; hb - PMHx: 16:46 Depression; GERD; Hypothyroidism; hb - PSHx: 16:46 section; Cholecystectomy; gastric sleeve; Operative procedure on knee; hb - Immunization history:: Adult Immunizations up to date. - Social history:: Smoking status: Patient denies any tobacco usage or history of. ROS: 16:46 Constitutional: Negative for fever, chills, and weight loss, sb4 16:46 Abdomen/GI: Positive for abdominal pain, nausea and vomiting, 16:46 All other systems are negative, Exam: 16:46 Constitutional: This is a well developed, well nourished patient who is awake, alert, sb4 and in no acute distress. Head/Face: Normocephalic, atraumatic. Eyes: Extra-ocular motions intact. Periorbital areas with no swelling, redness, or edema. ENT: Mucous membranes moist. Cardiovascular: Regular rate and rhythm with a normal S1 and S2. Respiratory: Lungs have equal breath sounds bilaterally, clear to auscultation and percussion. No rales, rhonchi or wheezes noted. No increased work of breathing, no retractions or nasal flaring. Skin: Warm, dry with normal turgor. Normal color with no rashes, no lesions, and no evidence of cellulitis. MS/ Extremity: Pulses equal, no cyanosis. Neurovascular intact. Full, normal range of motion. Neuro: Awake and alert, GCS 15, oriented to person, place, time, and situation. Motor strength 5/5 in all extremities. Sensory grossly intact. 16:46 Abdomen/GI: Inspection: abdomen appears normal, Bowel sounds: normal, Palpation: soft, moderate abdominal tenderness, in the right lower quadrant, voluntary guarding, is not appreciated, involuntary guarding, is not appreciated, Vital Signs: 16:43 BP 137 / 80; Pulse 75; Resp 16; Temp 98.4(O); Pulse Ox 100% on R/A; Weight 82.55 kg; hb Height 5 ft. 7 in. ; Pain 8/10; 20:47 Pulse 68; Temp 98.1; Pulse Ox 100% ; ap3 16:43 Body Mass Index 28.50 (82.55 kg, 170.18 cm) hb 16:43 Pain Scale: Adult hb MDM: 16:39 Patient medically screened. sb4 16:46 Differential diagnosis: appendicitis, bowel obstruction, diverticulitis, non-specific sb4 abd pain, Ureterolithiasis, urinary tract infection. 16:47 Differential diagnosis: Ovarian torsion, ovarian cyst. sb4 20:25 Data reviewed: vital signs, nurses notes, lab test result(s), radiologic studies, I sb4 have discussed the patient's presentation/case with the attending Emergency Department Physician; and as a result, I will discharge patient. Consideration of Admission/Observation Escalation of care including admission/observation considered. Counseling: I had a detailed discussion with the patient and/or guardian regarding the historical points, exam findings, and any diagnostic results supporting the discharge/admit diagnosis, the presence of at least one elevated blood pressure reading (>120/80) during this emergency department visit, lab results, radiology results, to return to the emergency department if symptoms worsen or persist or if there are any questions or concerns that arise at home. 02/24 16:42 Order name: CBC with Diff; Complete Time: 17:12 sb4 02/24 16:42 Order name: CMP; Complete Time: 17:19 sb4 02/24 16:42 Order name: Lipase; Complete Time: 17:19 sb4 02/24 16:42 Order name: UAM; Complete Time: 17:52 sb4 02/24 16:42 Order name: CT Abd/Pelvis - IV Contrast Only; Complete Time: 18:00 sb4 02/24 18:21 Order name: Transvaginal Study (probe); Complete Time: 20:16 sb4 02/24 16:42 Order name: IV Saline Lock; Complete Time: 16:44 sb4 02/24 16:42 Order name: Labs collected and sent; Complete Time: 16:44 sb4 Administered Medications: 16:53 Drug: NS 0.9% IV 1000 ml IV at 1 bolus Per protocol; 1000 mL bolus Route: IV; Rate: 1 ap3 bolus; Site: right antecubital; 16:53 Drug: Ondansetron IVP 4 mg IVP once; over 2 minutes Route: IVP; Site: right antecubital;ap3 18:35 Follow up: Response: No adverse reaction ap3 16:53 Drug: morphine IVP or IV 4 mg IVP once over 4 mins Route: IVP; Infused Over: 4 mins; ap3 Site: right antecubital; 18:34 Follow up: Response: No adverse reaction; Pain is decreased ap3 18:34 Drug: fentaNYL (PF) IVP 50 mcg IVP once Route: IVP; Site: right antecubital; ap3 19:42 Follow up: Response: No adverse reaction; Pain is decreased ap3 18:34 Drug: Dicyclomine IM 20 mg IM once Route: IM; Site: right gluteus; ap3 19:42 Follow up: Response: No adverse reaction; Pain is decreased ap3 Disposition Summary: 02/24/23 20:26 Discharge Ordered Notes: Location: Home sb4 Problem: new sb4 Symptoms: have improved sb4 Condition: Stable sb4 Diagnosis - Abdominal pain, unspecified sb4 Followup: sb4 - With: Private Physician - When: As needed - Reason: Recheck today's complaints, Re-evaluation by your physician Discharge Instructions: - Discharge Summary Sheet sb4 - Abdominal Pain, Adult sb4 Forms: - Work release form ap3 - Medication Reconciliation Form sb4 - Thank You Letter sb4 - Antibiotic Education sb4 - Prescription Opioid Use sb4 - Patient Portal Instructions sb4 - Leadership Thank You Letter sb4 Prescriptions: - acetaminophen-codeine 300-15 mg Oral tablet - take 1 tablet ORAL route every 6 hours; 15 tablet; Refills: 0, Product sb4 Selection Permitted Addendum: 02/26/2023 06:57 Co-signature as Attending Physician, Obey Cruz MD I reviewed the patient's care r n provided by the Advanced Practice Provider and agree with the diagnosis and treatment plan. Signatures: Dispatcher [employer] EDObey Hernandez MD MD rn Baxter, Heather RN Rach Marcelino RN RN ap3 Brown, Sophia, PA-C PA-C sb4
--- NOTE | 2023-02-24 20:27 | ER ---
Nurse's Notes [facility] Name: Maria Isabel Mills Age: 57 yrs Sex: Female : 1965 Arrival Date: 02/24/2023 Time: 16:33 Bed 12 Private MD: Diagnosis: Abdominal pain, unspecified Presentation: 02/24 16:43 Chief complaint: Intermittent sharp RLQ pain and nausea x 3 days, vomit x 2. hb Coronavirus screen: At this time, the client does not indicate any symptoms associated with coronavirus-19. Ebola Screen: No symptoms or risks identified at this time. Initial Sepsis Screen: Does the patient meet any 2 criteria? No. Patient's initial sepsis screen is negative. Does the patient have a suspected source of infection? No. Patient's initial sepsis screen is negative. Risk Assessment: Do you want to hurt yourself or someone else? Patient reports no desire to harm self or others. Onset of symptoms was February 21, 2023. 16:43 Method Of Arrival: Ambulatory hb 16:43 Acuity: TOMASZ 3 hb Historical: - Allergies: 16:46 Augmentin; hb 16:46 Ultram; hb 16:46 tramadol; hb - PMHx: 16:46 Depression; GERD; Hypothyroidism; hb - PSHx: 16:46 section; Cholecystectomy; gastric sleeve; Operative procedure on knee; hb - Immunization history:: Adult Immunizations up to date. - Social history:: Smoking status: Patient denies any tobacco usage or history of. Screenin:57 [facility] [place] ED Fall Risk Assessment (Adult) History of falling in the last 3 months, ap3 including since admission No falls in past 3 months (0 pts). Abuse screen: Denies threats or abuse. Nutritional screening: No deficits noted. Tuberculosis screening: No symptoms or risk factors identified. Assessment: 16:44 General: Appears uncomfortable, Behavior is cooperative, appropriate for age. Pain: ap3 Complains of pain in abdomen Pain currently is 8 out of 10 on a pain scale. Neuro: Level of Consciousness is awake, alert, obeys commands. Cardiovascular: Patient's skin is warm and dry. Respiratory: Airway is patent Respiratory effort is even, unlabored, Respiratory pattern is regular, symmetrical. GI: Abdomen is round non-distended, Abd is soft Reports lower abdominal pain, upper abdominal pain, nausea, vomiting. 19:41 Reassessment: Patient and/or family updated on plan of care and expected duration. Pain ap3 level reassessed. Patient is alert, oriented x 3, equal unlabored respirations, skin warm/dry/pink. 20:47 GI: Bowel sounds present X 4 quads. ap3 Vital Signs: 16:43 BP 137 / 80; Pulse 75; Resp 16; Temp 98.4(O); Pulse Ox 100% on R/A; Weight 82.55 kg; hb Height 5 ft. 7 in. ; Pain 8/10; 20:47 Pulse 68; Temp 98.1; Pulse Ox 100% ; ap3 16:43 Body Mass Index 28.50 (82.55 kg, 170.18 cm) hb 16:43 Pain Scale: Adult hb ED Course: 16:34 Patient arrived in ED. rg4 16:37 Rach Galeana RN is Primary Nurse. ap3 16:39 Enid Menjivar PA-C is PHCP. sb4 16:39 Obey Cruz MD is Attending Physician. sb4 16:44 Inserted saline lock: 22 gauge 24 gauge antecubital area, using aseptic technique. ap3 Blood collected. 16:45 Bed in low position. Call light in reach. Side rails up X 1. Adult w/ patient. Pulse ox ap3 on. NIBP on. Door closed. Noise minimized. 16:46 Triage completed. hb 16:56 Initial lab(s) drawn, by me, sent to lab. ap3 16:56 CBC with Diff Sent. ap3 16:56 CMP Sent. ap3 16:56 Lipase Sent. ap3 16:57 Arm band placed on right wrist. ap3 16:57 Provided Education on: medication prior to administration . ap3 17:49 CT Abd/Pelvis - IV Contrast Only In Process Unspecified. EDMS 19:52 Transvaginal Study (probe) In Process Unspecified. EDMS 20:47 No provider procedures requiring assistance completed. Patient did not have IV access ap3 during this emergency room visit. Administered Medications: 16:53 Drug: NS 0.9% IV 1000 ml IV at 1 bolus Per protocol; 1000 mL bolus Route: IV; Rate: 1 ap3 bolus; Site: right antecubital; 16:53 Drug: Ondansetron IVP 4 mg IVP once; over 2 minutes Route: IVP; Site: right antecubital;ap3 18:35 Follow up: Response: No adverse reaction ap3 16:53 Drug: morphine IVP or IV 4 mg IVP once over 4 mins Route: IVP; Infused Over: 4 mins; ap3 Site: right antecubital; 18:34 Follow up: Response: No adverse reaction; Pain is decreased ap3 18:34 Drug: fentaNYL (PF) IVP 50 mcg IVP once Route: IVP; Site: right antecubital; ap3 19:42 Follow up: Response: No adverse reaction; Pain is decreased ap3 18:34 Drug: Dicyclomine IM 20 mg IM once Route: IM; Site: right gluteus; ap3 19:42 Follow up: Response: No adverse reaction; Pain is decreased ap3 Medication: 16:57 VIS not applicable for this client. ap3 Outcome: 20:26 Discharge ordered by . sb4 20:47 Discharged to home ambulatory, with family, ap3 20:47 Condition: good 20:47 Discharge instructions given to patient, Instructed on discharge instructions, follow up and referral plans. medication usage, Demonstrated understanding of instructions, follow-up care, medications, Prescriptions given X 1, 20:48 Patient left the ED. ap3 Signatures: Dispatcher [employer] EDGay Roman RN RN hb Garcia, Rubi rg4 Rach Galeana RN RN ap3 Brown, Sophia, PARm PARm sb4
[2023-02-24 21:08] VITALS: BP 137/80; TEMP 98.4; O2SAT 100
== END 2023-02-24 20:48 | disposition home or self-care (01) ==
LOC: ER 16:33
DX: R10.31 Right lower quadrant pain (principal); R11.2 Nausea with vomiting, unspecified; Z88.1 Allergy status to other antibiotic agents; Z88.5 Allergy status to narcotic agent
CPT/HCPCS: 85025; 81001; 36415; 83690; 80053; 74177; 76830; 96375; 96372; 96374; 99284; Q9967; J0500; J3010; J2405; J7030

== ENCOUNTER → 2023-07-29 | Emergency (ER) | payer BC ==
[~2023-07-29] MED LIST: ALBUTEROL 2.5 MG/3 ML NEB SOL ONE; IPRATROPIUM BROM 0.5MG/2.5ML ONE
--- OUTSIDE RECORDS SUMMARY | 2023-07-29 13:04 | XMS REPORT | Continuity of Care Document ---
Author Name Unknown Address [address] [facility] [address] [place] [address] [facility] thconnect Address [address] [facility] [place] [address] Care Team Providers Care Electronic Test Technician Name Role Phone JN PALUMBO Primary Care Physician Unavaila Rocio Bob DO Attending Clinician [phone] ROCIO NORMAN Attending Clinician Unavailab GERDA King Attending Clinician Unavailable Gerda Landaverde NP Attending Clinician [phone] Paco Cabello MD Attending Clinician [phone] PACO CABELLO Attending Clinician Unavailable ROCIO NORMAN Admitting Clinician Unavailab GERDA King Admitting Clinician Unavailable PACO CABELLO Admitting Clinician Unavailable Payers Payer Name Policy Type Policy Number Effective Date Expirati on Date Source Allergies, Adverse Reactions, Alerts Allergy Name Allergy Type Status Severity Reaction(s) Onset Date Inactive Date Treating Clinician Comments Source Amoxicil meenakshi-Pot Clavulan ate Propensi ty to adverse reaction s Active Nausea and/or Vomiting 09-29 00:00: 00 [facility] AMOXICIL MEENAKSHI-POT CLAVULAN ATE DRUG Active N/V 09-29 00:00: 00 [facility] NO KNOWN ALLERGIE S Drug Class Active [facility] Social History Social Habit Start Date Stop Date Quantity Comments Source Gender identity [facility] Exposure to SARS-CoV-2 (event) 2022-09-19 00:00:00 2022-09-29 09:38:00 Not sure [facility] Sex Assigned At 1965 00:00:00 1965 00:00:00 [facility] Smoking Status Start Date Stop Date Source Tobacco smoking consumption unknown [facility] Medications Ordered Medication Name Filled Medication Name Start Date Stop Date Current Medication? Ordering Clinician Indication Dosage Frequency Signature (SIG) Comments Components Source albuterol (PROVENTIL) 2.5 mg /3 mL (0.083 %) nebulizer solution 2.5 mg 12-28 15:15: 00 12-28 14:16 :00 No 2.5mg 2.5 mg, Inhalation , ONCE, 1 dose, On Mon12/28/22 at 1015, STAT [facility] omeprazole (PRILOSEC) capsule 40 mg 12-26 14:00: 00 Yes 40mg 40 mg, Oral, DAILY, First dose on Mon12/26/22 at 0900, Until Discontinu ed, Routine [facility] levoFLOXaci n (LEVAQUIN) tablet 750 mg 12-26 03:30: 00 12-26 02:50 :00 No 750mg 750 mg, Oral, ONCE NOW, 1 dose, On Mon12/25/22 at 2230, ALEIDA
Re ason for Anti-Infec tive: Documented Infection< br>Documen zain Infection Site: Respirator y
Durat ion of Therapy: 7 days [facility] acetaminoph en (TYLENOL) tablet 1,000 mg 12-26 02:45: 00 12-26 02:49 :00 No 1000mg 1,000 mg, Oral, ONCE, 1 dose, On Mon12/25/22 at 2145, ALEIDA [facility] iopamidol (ISOVUE 370-500 mL) injection 75 mL 12-26 02:45: 00 12-26 02:45 :00 No [id number] 75mL 75 mL, Intravenou s, ONCE, 1 dose, On Mon12/25/22 at 2145, Routine [facility] ketorolac (TORADOL) injection 30 mg 12-26 02:30: 00 12-26 01:33 :00 No 30mg 30 mg, Slow IV Push, ONCE, 1 dose, On Mon12/25/22 at 2130, Routine [facility] diphenhydrA MINE (BENADRYL) injection 25 mg 12-26 01:30: 00 12-26 01:34 :00 No 25mg 25 mg, Slow IV Push, ONCE, 1 dose, On Mon12/25/22 at 2030, STAT [facility] metoclopram simran HCl (REGLAN) injection 10 mg 12-26 01:30: 00 12-26 01:34 :00 No 10mg 10 mg, Slow IV Push, ONCE, 1 dose, On Mon12/25/22 at 2030, ALEIDA [facility] NaCl 0.9% (NS) bolus infusion 1,000 mL 12-25 23:15: 00 12-26 03:00 :00 No 1000mL at 999 mL/hr, 1,000 mL, IV Infusion, ONCE, 1 dose, On Mon12/25/22 at 1815, ALEIDA [facility] ipratropium -albuteroL (DUONEB) 0.5 mg-3 mg(2.5 mg base)/3 mL nebulizer solution 3 mL 12-25 23:15: 00 12-26 01:27 :00 No 3mL 3 mL, Inhalation , ONCE NOW, 1 dose, On Mon12/25/22 at 1815, Routine [facility] dexamethaso ne sod phos PF injection 10 mg 12-25 22:30: 00 12-26 01:27 :00 No 10mg 10 mg, Slow IV Push, ONCE, 1 dose, On Mon12/25/22 at 1730, 1 mL [facility] levothyroxi ne 100 mcg injection 12-25 22:22: 20 Yes [facility] levothyroxi ne 100 mcg injection 12-25 22:22: 20 Yes [facility] benzonatate 100 mg capsule 12-25 00:00: 00 Yes [id number] 200mg Take 2 capsules by mouth 3 (three) times daily as needed for Cough. [facility] ipratropium 0.02 % nebulizer solution 12-25 00:00: 00 Yes [id number] .5mg Inhale 2.5 mL every 8 (eight) hours as needed for Wheezing, Shortness of Breath, Bronchospa sm or Chest tightness. [facility] albuterol 2.5 mg /3 mL (0.083 %) nebulizer solution 12-25 00:00: 00 Yes [id number] 2.5mg Inhale 3 mL every 4 (four) hours as needed for Wheezing, Shortness of Breath, Bronchospa sm or Chest tightness. May also nebulize one extra every 6 hours. [facility] benzonatate 100 mg capsule 12-25 00:00: 00 Yes [id number] 200mg Take 2 capsules by mouth 3 (three) times daily as needed for Cough. [facility] ipratropium 0.02 % nebulizer solution 12-25 00:00: 00 Yes [id number] .5mg Inhale 2.5 mL every 8 (eight) hours as needed for Wheezing, Shortness of Breath, Bronchospa sm or Chest tightness. [facility] albuterol 2.5 mg /3 mL (0.083 %) nebulizer solution 12-25 00:00: 00 Yes [id number] 2.5mg Inhale 3 mL every 4 (four) hours as needed for Wheezing, Shortness of Breath, Bronchospa sm or Chest tightness. May also nebulize one extra every 6 hours. [facility] levoFLOXaci n 750 mg tablet 12-25 00:00: 00 01-02 04:59 :00 No [id number] 750mg Take 1 tablet by mouth every 24 (twenty-fo ur) hours for 7 days. [facility] codeine-gua ifenesin 10-100 mg/5 mL oral solution 12-25 00:00: 00 01-02 04:59 :00 No 10mL Take 10 mL by mouth every 6 (six) hours as needed for Cough for up to 7 days. Indication s: cough [facility] levoFLOXaci n 750 mg tablet 12-25 00:00: 00 01-02 04:59 :00 No [id number] 750mg Take 1 tablet by mouth every 24 (twenty-fo ur) hours for 7 days. [facility] codeine-gua ifenesin 10-100 mg/5 mL oral solution 12-25 00:00: 00 01-02 04:59 :00 No 10mL Take 10 mL by mouth every 6 (six) hours as needed for Cough for up to 7 days. Indication s: cough [facility] predniSONE 20 mg tablet 12-25 00:00: 00 12-31 04:59 :00 No [id number] 20mg Take 1 tablet by mouth in the morning and 1 tablet in the evening. Do all this for 5 days. [facility] predniSONE 20 mg tablet 12-25 00:00: 00 12-31 04:59 :00 No [id number] 20mg Take 1 tablet by mouth in the morning and 1 tablet in the evening. Do all this for 5 days. [facility] ergocalcife rol, vitamin d2, 1,250 mcg (50,000 unit) capsule 10-25 00:00: 00 Yes [facility] ergocalcife rol, vitamin d2, 1,250 mcg (50,000 unit) capsule 10-25 00:00: 00 Yes [facility] LORazepam 0.5 mg tablet 10-20 00:00: 00 Yes TAKE ONE (1) TABLET(S) BY MOUTH DAILY NEEDED. [facility] LORazepam 0.5 mg tablet 10-20 00:00: 00 Yes TAKE ONE (1) TABLET(S) BY MOUTH DAILY NEEDED. [facility] atorvastati n 20 mg tablet 10-19 00:00: 00 Yes 20mg Take 1 tablet by mouth in the morning. [facility] atorvastati n 20 mg tablet 10-19 00:00: 00 Yes 20mg Take 1 tablet by mouth in the morning. [facility] FENTanyl PF (SUBLIMAZE (PF)) injection 75 mcg 09-29 16:30: 00 09-29 15:42 :00 No 75ug 75 mcg, Intramuscu lar, ONCE, 1 dose, On Nannette 09/29/22 at 1130, STAT [facility] ketorolac (TORADOL) injection 30 mg 09-29 16:30: 00 09-29 15:41 :00 No 30mg 30 mg, Intramuscu lar, ONCE, 1 dose, On Nannette 09/29/22 at 1130, ALEIDA [facility] HYDROcodone -acetaminop hen (NORCO) 10-325 mg tablet 09-29 00:00: 00 10-07 04:59 :00 No [id number] 1{tbl} Take 1 tablet by mouth every 6 (six) hours as needed for Pain (scale 4-6) for up to 7 days. Indication s: acute pain [facility] predniSONE 20 mg tablet 09-29 00:00: 00 10-05 04:59 :00 No [id number] 20mg Take 1 tablet by mouth every morning for 5 days. [facility] buPROPion SR (WELLBUTRIN SR) 150 mg SR tablet 09-29 00:00: 00 Yes [facility] gabapentin 100 mg capsule 09-29 00:00: 00 Yes [facility] buPROPion SR (WELLBUTRIN SR) 150 mg SR tablet 09-29 00:00: 00 Yes [facility] gabapentin 100 mg capsule 09-29 00:00: 00 Yes [facility] Vital Signs Vital Name Observation Time Observation Value Comments S ource Respiratory rate 2022-12-28 14:23:00 18 /min [facility] Oxygen saturation in Arterial blood by Pulse oximetry 2022-12-28 14:23:00 96 /min [facility] Systolic blood pressure 2022-12-28 13:58:00 147 mm[Hg] [facility] Diastolic blood pressure 2022-12-28 13:58:00 95 mm[Hg] [facility] Heart rate 2022-12-28 13:58:00 73 /min Un[facility] Body temperature 2022-12-28 13:58:00 36.72 Kassidy [facility] Body height 2022-12-28 13:58:00 167.6 cm [facility] Body weight 2022-12-28 13:58:00 81.647 kg [facility] BMI 2022-12-28 13:58:00 29.05 kg/m2 [facility] Systolic blood pressure 2022-12-26 03:19:00 132 mm[Hg] [facility] Diastolic blood pressure 2022-12-26 03:19:00 81 mm[Hg] [facility] Heart rate 2022-12-26 03:19:00 77 /min [facility] Body temperature 2022-12-26 03:19:00 37.89 Kassidy [facility] Respiratory rate 2022-12-26 03:19:00 23 /min [facility] Oxygen saturation in Arterial blood by Pulse oximetry 2022-12-26 03:19:00 96 /min [facility] Body weight 2022-12-25 22:07:00 81.647 kg [facility] BMI 2022-12-25 22:07:00 29.05 kg/m2 [facility] Respiratory rate 2022-09-29 17:17:00 18 /min [facility] Oxygen saturation in Arterial blood by Pulse oximetry 2022-09-29 17:17:00 98 /min [facility] Heart rate 2022-09-29 17:17:00 82 /min [facility] Systolic blood pressure 2022-09-29 14:39:00 129 mm[Hg] [facility] Diastolic blood pressure 2022-09-29 14:39:00 88 mm[Hg] [facility] Body temperature 2022-09-29 14:39:00 37.11 Kassidy [facility] Body height 2022-09-29 14:39:00 167.6 cm [facility] Body weight 2022-09-29 14:39:00 81.647 kg [facility] BMI 2022-09-29 14:39:00 29.05 kg/m2 [facility] Procedures Procedure Date / Time Performed Performing Clinicia n Source CONSENT/REFUSAL FOR DIAGNOSIS AND TREATMENT 2022-12-28 13:53:15 Doctor Unassigned, [place] [facility] CT CHEST PULMONARY ANGIOGRAM 2022-12-26 01:52:00 Gerda Landaverde [facility] ASSIGNMENT OF BENEFITS 2022-12-26 01:10:26 Docto r Unassigned, [place] [facility] LIPASE 2022-12-26 00:04:00 Gerda Landaverde [facility] TROPONIN I 2022-12-26 00:04:00 Gerda Landaverde [facility] COMP. METABOLIC PANEL ([id number]) 2022-12-26 00:04:00 Gerda Landaverde [facility] CBC WITH DIFF 2022-12-26 00:04:00 Gerda Landaverde [facility] D-DIMER 2022-12-26 00:04:00 Gerda Landaverde [facility] URINALYSIS 2022-12-26 00:04:00 Gerda Landaverde [facility] RAPID STREP SCREEN FOR GROUP A 2022-12-26 00:04:00 Gerda Landaverde [facility] RAPID INFLUENZA A/B 2022-12-26 00:04:00 Gerda Landaverde [facility] COVID-19 (ID NOW RAPID TESTING) 2022-12-26 00:04:00 Gerda Landaverde [facility] XR CHEST 2 VW 2022-12-25 22:45:08 Gerda Landaverde [facility] CONSENT/REFUSAL FOR DIAGNOSIS AND TREATMENT 2022-12-25 22:04:08 Doctor Unassigned, [place] [facility] XR ANKLE 3+ VW LEFT 2022-09-29 16:00:00 Sarai Cabello [facility] XR KNEE 3 VW LEFT 2022-09-29 16:00:00 Paco Cabello [facility] NOTICE OF PRIVACY PRACTICES 2022-09-29 14:33:24 Doctor Unassigned, [place] [facility] CONSENT/REFUSAL FOR DIAGNOSIS AND TREATMENT 2022-09-29 14:32:45 Doctor Unassigned, [place] [facility] Encounters Start Date/Time End Date/Time Encounter Type Admission Type Attending [facility] Care Department Encounter ID Source 2022-12-28 09:00:00 2022-12-28 11:23:00 Emergency Rocio Norman [facility] [id number] [id number] [facility] 2022-12-28 09:00:00 2022-12-28 11:23:00 Emergency X HALEYANGELA ROCIO [facility] ERT [id number] [facility] 2022-12-25 17:09:00 2022-12-25 22:21:00 Emergency X CHANGERDA RICH [facility] ERT [id number] [facility] 2022-12-25 17:09:00 2022-12-25 22:21:00 Emergency ChanGerda rich Yasmeen [facility] [id number] 4.2.7.2.686 [id number] [facility] 2022-09-29 09:40:00 2022-09-29 12:18:00 Emergency Paco Cabello [facility] [id number] [id number] [id number] [facility] 2022-09-29 09:40:00 2022-09-29 12:18:00 Emergency X JENNI PACO [facility] ERT [id number] [facility] Notes Date/Time Note Provider Source 2022-12-28 08:57:26 [id number] [id number] [id number]+[id number] -08-09T08:57:26 Diagnosed with bronchitis two days ago in ER. Given abx, breathing treatment, cough medicine, steroids. Did breathing treatment this AM. Still coughing and having pain. 05227-3Ldhiazfjk department Triage penwZK3887-24-50N47:58:20[facility] Triage [id number] .[id number] for patient thdc75413-8Vtnpvpamp department [id number] [id number] T08:58:201.2.840.865264.1.72.3.15| [id number] [facility] 2022-12-28 08:52:00 [id number] CJeLUBhLFgXP6r [id number]+0QVqgJHyr43ql4LT1079 -08-09T08:52:00 [facility] Emergency Department NotePatient Name: Cosmo Portillo of : 1965 57 year old femaleTreatment Room: [place] [address]Medical Record Number: [id number] Care Physician: Jn PalumboPatient Escorted by: Family [5]Mode of Arrival: Personal means [1]EMS Treatment Prior to ED Arrival: Travel and Exposure Screening:SymptomsDoes patient have any of these symptoms?: (not recorded)Exposure ScreeningHas patient had contact with someone with a communicable disease in the last month?: (not recorded)Diseases exposed to:: (not recorded)Is Patient ?: (not recorded)Exposure Date: (not recorded)Chief Complaint:Chief Complaint Patient presents with Pain History of Present Illness:[id number] WF with significant smoking history presents today coughing and chest pains that happen during coughing. The worst was this morning after she woke up. She states she as seen on Monday and was given albut neb, steroids, levaquin and tessalon perles. She has been taking them but her coughing seems to bee getting worse. Past Medical History/Immunizations:No past medical history on file. Allergies:Allergies Allergen Reactions Augmentin [Amoxicillin-Pot Clavulanate] Nausea and/or Vomiting Past Social History:Substance & Sexual Activity No substance use or sexual activity history on file. Past Surgical History:No past surgical history on file.Review of Systems: Review of Systems Constitutional: Negative for activity change, diaphoresis, fatigue, fever and weight gain. HENT: Negative for congestion, ear pain, rhinorrhea, sore throat, tinnitus and trouble swallowing. Eyes: Negative for discharge and visual disturbance. Respiratory: Positive for cough and chest tightness. Breasts: Negative for pain. Cardiovascular: Positive for chest pain. Negative for palpitations. Gastrointestinal: Negative for abdominal pain, nausea and vomiting. Genitourinary: Negative for dysuria, hematuria and difficulty urinating. Musculoskeletal: Negative for joint swelling. Skin: Negative for rash and wound. Neurological: Negative for dizziness and headaches. Psychiatric/Behavioral: Negative for agitation and confusion. The patient is not nervous/anxious. Hematological: Does not bruise/bleed easily. Endocrine: Negative for weight gain. Physical Exam: ED Triage Vitals [12/28/22 0858] Weight 81.6 kg (180 lb) Actual or estimated Estimated by patient/family report Height 1.676 m (5' 6") BP (!) 147/95 Pulse 73 Resp 20 Temp 36.7 ?C (98.1 ?F) Temp source Oral SpO2 97 % Measured on Room air Physical ExamVitals reviewed. Constitutional: Appearance: She is well-developed. HENT: Head: Normocephalic and atraumatic. Eyes: Conjunctiva/sclera: Conjunctivae normal. Cardiovascular: Rate and Rhythm: Normal rate and regular rhythm. Heart sounds: Normal heart sounds. No murmur heard.Pulmonary: Effort: Pulmonary effort is normal. Breath sounds: No stridor. Wheezing present. Comments: Non productive cough in room, wheezing could be from larynxNOT hypoxicAbdominal: General: Bowel sounds are normal. Palpations: Abdomen is soft. Tenderness: There is no abdominal tenderness. Musculoskeletal: General: Normal range of motion. Cervical back: Neck supple. Skin: General: Skin is warm and dry. Capillary Refill: Capillary refill takes less than 2 seconds. Neurological: Mental Status: She is alert and oriented to person, place, and time. Cranial Nerves: No cranial nerve deficit. Psychiatric: Behavior: Behavior normal. Radiology:XR CHEST 2 VW Preliminary Result EXAM: XR CHEST 2 VW COMPARISON: Radiograph dated 12/25/2022 HISTORY: cough FINDINGS: Lungs: Normal lung volumes. Mild bibasilar atelectasis. No pleural abnormalities are detected. Heart/Mediastinum: The cardiomediastinal silhouette is normal in size. Bones and soft tissues: No focal osseous lesions or acute osseous findings. IMPRESSION Mild bibasilar atelectasis. Preliminary Report Dictated by Resident: Terry Ortiz Lab Results:Lab Results - No data to displayEKG:If EKG completed, see Procedure Note. Orders and Treatments:Orders Placed This Encounter Procedures XR CHEST 2 VW Orders Placed This Encounter Medications ibuprofen (IBU) tablet 600 mg albuterol (PROVENTIL) 2.5 mg /3 mL (0.083 %) nebulizer solution 2.5 mg First Provider Eval:ED Events Date/Time Event User Comments 12/28/22 09 Medical Screening Begins ROCIO NORMAN MD -- 12/28/22 09 First Provider Evaluation ROCIO NORMAN MD -- No notes of EC Admission Criteria type on file.ED COURSEDiagnosis/Impression as of 12/28/22 1046 Cough in adult Chest wall pain Bronchitis Procedures: ProceduresMDM:Medical Decision MakingReviewed previous workup - large workup finished including CT PE scan - which was negative for PE and PNA.Patient is already been prescribed strong antibiotic (levaquin), steroids & neb treatments (for COPD) and tessalon perles and guaifensin (for bronchitis and cough). Reports compliance to meds.CXR completed to compare to previous-- nothing new presentEkg is normal sinus rhythm, rate 72, no signs of ischemiaAt this point, I'm not sure what I can offer. Given ibuprofen for chest wall pain which patient refused because she was told by a pharmacist she shouldn't take ibuprofen with her medications (for unknown reasons). Not hypoxic, will give neb treatment to see if it helps. Offered muscle relaxors and reassurance. Discharged to follow with PCP.Problems Addressed:Chest wall pain: acute illness or injuryCough in adult: acute illness or injuryAmount and/or Complexity of Data ReviewedIndependent Historian: spouseExternal Data Reviewed: labs, radiology, ECG and notes.Radiology: ordered. Decision-making details documented in ED Course.ECG/medicine tests: ordered and independent interpretation performed.RiskPrescription drug management. Flowsheet Documentation: Scoring Tools: No data recorded Disposition/Condition:ED Disposition None Discharge Medications:Patient's Medications START taking these medications No medications on file CONTINUE taking these medications which have NOT CHANGED ALBUTEROL 2.5 MG /3 ML (0.083 %) NEBULIZER SOLUTION Inhale 3 mL every 4 (four) hours as needed for Wheezing, Shortness of Breath, Bronchospasm or Chest tightness. May also nebulize one extra every 6 hours. ATORVASTATIN 20 MG TABLET Take 1 tablet by mouth in the morning. BENZONATATE 100 MG CAPSULE Take 2 capsules by mouth 3 (three) times daily as needed for Cough. BUPROPION SR (WELLBUTRIN SR) 150 MG SR TABLET CODEINE-GUAIFENESIN 10-100 MG/5 ML ORAL SOLUTION Take 10 mL by mouth every 6 (six) hours as needed for Cough for up to 7 days. Indications: cough ERGOCALCIFEROL, VITAMIN D2, 1,250 MCG (50,000 UNIT) CAPSULE GABAPENTIN 100 MG CAPSULE IPRATROPIUM 0.02 % NEBULIZER SOLUTION Inhale 2.5 mL every 8 (eight) hours as needed for Wheezing, Shortness of Breath, Bronchospasm or Chest tightness. LEVOFLOXACIN 750 MG TABLET Take 1 tablet by mouth every 24 (twenty-four) hours for 7 days. LEVOTHYROXINE 100 MCG INJECTION LORAZEPAM 0.5 MG TABLET TAKE ONE (1) TABLET(S) BY MOUTH DAILY NEEDED. PREDNISONE 20 MG TABLET Take 1 tablet by mouth in the morning and 1 tablet in the evening. Do all this for 5 days. START taking Modified Medications as Prescribed No medications on file STOP taking these medications No medications on file Follow-up:Electronically signed by: Rocio Norman DO12/28/22 1045 [id number] Emergency department [id number]:45:34[facility] Emergency department [id number] .[id number] for patient uwyt68404-6Okmrbpoww department Note[id number] 01HFCNDUXVINNHVGSVYRBXRW5393-56-85 T10:45:341.2.840.351695.1.72.3.15| [id number] [id number] [facility] 2022-12-25 22:20:14 [id number]+[id number] PUF/CrVyP75L2W +fOUZmuR4CpHacGfE6MgqFBsuCbiOJ3463 -08-06T22:20:14 DC instructions given to patient. Patient agree with POC and to follow up with PCP. IV DC with no complications=. Pt has no questions at this time. 14580-9Liemjozhx department BnowYO3332-48-83P15:20:55[facility]ly [facility] department [id number] .[id number]|[id number] for patient [id number] Moses GARCIA[id number] 36MIKSORFXBCHZTGGECXTXVY8552-15-80 T22:20:551.2.840.518120.1.72.3.15| [id number] [id number] Rusty Lopes RN [facility] 2022-12-25 17:06:43 gwIuGlepf85wZ33vfnWw 50UfsRz2XDoQtp 4zWlEUAjv2OwYQqOKgy2rvFNvJpoBA8662 -08-06T17:06:43 Pt arrived via private car with c/o generalized weakness, cough and sob with exertion. Pt [facility] and arrived at 95% on room air. States she took a home covid test today that was negative. States she took mucinex this am. Reports the symptoms have been ongoing since . 33559-4Ljulrrbld department Triage lfypGH3787-61-04F35:09:28[facility] department Triage [id number] .2.342271|[id number] for patient bzjj69508-6Okdbhijha department [id number] L Barker RN[address] Cj[id number] 88DGXBUMRMWBYWROOAIOSYHC7820-70-25 T17:09:281.2.840.264333.1.72.3.15| 1.2.840.966956.1.13.104.2.7.2.7278 [id number] Celia Frederick RN [facility]
[2023-07-29 13:38] LABS: SARS-CoV-2 Antigen Rapid Res Negative (Negative)
--- NOTE | 2023-07-29 13:40 | RAD REPORT ---
EXAM DESCRIPTION: RAD - Chest Single View - 07/29/2023 1:35 pm CLINICAL HISTORY: COUGH COMPARISON: <Comparisons> FINDINGS: Lines: None. Lungs: No evidence of edema or pneumonia. Pleural: No significant pleural effusions or pneumothorax. Cardiac: The heart size is within normal limits. Mediastinum: Within normal limits. Bones: No acute fractures. Other: None IMPRESSION: No acute cardiopulmonary disease.
--- NOTE | 2023-07-29 13:58 | ER ---
Nurse's Notes [facility] Name: Maria Isabel Mills Age: 57 yrs Sex: Female : 1965 Arrival Date: 07/29/2023 Time: 13:01 Bed 19 Private MD: Diagnosis: Acute bronchitis, unspecified Presentation: 07/28 13:08 Chief complaint: Patient states: Sore throat since Monday, along with cough, nj1 congestion, fatigued. Coronavirus screen: Vaccine status: Patient reports receiving the 2nd dose of the covid vaccine. Ebola Screen: Patient denies travel to an Ebola-affected area in the 21 days before illness onset. Initial Sepsis Screen: Does the patient meet any 2 criteria? No. Patient's initial sepsis screen is negative. Does the patient have a suspected source of infection? No. Patient's initial sepsis screen is negative. Risk Assessment: Do you want to hurt yourself or someone else? Patient reports no desire to harm self or others. Onset of symptoms was July 26, 2023. 13:08 Method Of Arrival: Ambulatory nj1 13:08 Acuity: TOMASZ 3 nj1 Historical: - Allergies: 13:11 Augmentin; nj1 13:11 tramadol; nj1 13:11 Ultram; nj1 - PMHx: 13:11 Depression; GERD; Hypothyroidism; nj1 - PSHx: 13:11 section; Cholecystectomy; gastric sleeve; Operative procedure on knee; nj1 - Immunization history:: Client reports receiving the 2nd dose of the Covid vaccine. - Social history:: Smoking status: Patient/guardian denies using tobacco, the patient reports quitting approximately 1 years ago. Screenin:38 [facility] ED Fall Risk Assessment (Adult) History of falling in the last 3 months, as6 including since admission No falls in past 3 months (0 pts) Confusion or Disorientation No (0 pts) Intoxicated or Sedated No (0 pts) Impaired Gait No (0 pts) Mobility Assist Device Used No (0 pt) Altered Elimination No (0 pt) Score/Fall Risk Level 0 - 2 = Low Risk Oriented to surroundings, Maintained a safe environment, Educated pt \T\ family on fall prevention, incl call for assistance when getting out of bed, Assessed \T\ reinforced patient's understanding of fall precautions, Hourly rounding (assess needs \T\ fall precautionary measures) done. Abuse screen: Denies threats or abuse. Denies injuries from another. Nutritional screening: No deficits noted. Tuberculosis screening: No symptoms or risk factors identified. Assessment: 13:37 General: Appears in no apparent distress. uncomfortable, ill, Behavior is calm, as6 cooperative. Pain: Complains of pain in back and throat. Neuro: Level of Consciousness is awake, alert, obeys commands, Oriented to person, place, time, situation, Reports headache. Cardiovascular: Capillary refill < 3 seconds Patient's skin is warm and dry. Respiratory: Reports cough that is dry, hacking, persistent Airway is patent Trachea midline Respiratory effort is even, unlabored, Respiratory pattern is regular, symmetrical, Breath sounds are clear bilaterally. in right upper lobe and left upper lobe. GI: No deficits noted. No signs and/or symptoms were reported involving the gastrointestinal system. : No deficits noted. No signs and/or symptoms were reported regarding the genitourinary system. EENT: Reports nasal congestion sore throat . Derm: Skin is intact, is healthy with good turgor. Musculoskeletal: Circulation, motion, and sensation intact. 14:07 Reassessment: Patient appears in no apparent distress at this time. Patient and/or as6 family updated on plan of care and expected duration. Pain level reassessed. Patient is alert, oriented x 3, equal unlabored respirations, skin warm/dry/pink. Vital Signs: 13:08 BP 142 / 81; Pulse 85; Resp 17; Temp 98.3(O); Pulse Ox 99% ; Weight 81.65 kg; Height 5 nj1 ft. 6 in. ; Pain 8/10; 13:39 BP 126 / 82; Pulse 68; Resp 18 S; Pulse Ox 100% on R/A; as6 14:07 BP 139 / 87; Pulse 64; Resp 16 S; Pulse Ox 100% on R/A; as6 13:08 Body Mass Index 29.05 (81.65 kg, 167.64 cm) ky1 13:08 Pain Scale: Adult ky1 ED Course: 13:03 Patient arrived in ED. ra3 13:04 [facility] Coy [facility] 13:04 Oscar Kendrick MD is Attending Physician. [facility] 13:11 Triage completed. nj1 13:11 Arm band placed on right wrist. nj1 13:18 Rosalio Booker, RN is Primary Nurse. as6 13:37 XRAY Chest (1 view) In Process Unspecified. EDMS 13:39 Bed in low position. Call light in reach. Side rails up X2. Pulse ox on. NIBP on. Warm as6 blanket given. 14:08 Provided Education on: rx teaching . as6 14:08 No provider procedures requiring assistance completed. Patient did not have IV access as6 during this emergency room visit. Administered Medications: 13:32 Drug: DuoNeb Nebulize (3:1) (2.5 mg - 0.5 mg) 3 ml Nebulizer once Route: Nebulizer; as6 14:06 Follow up: Response: No adverse reaction as6 Medication: 13:39 VIS not applicable for this client. as6 Outcome: 13:58 Discharge ordered by . jh7 14:08 Discharged to home ambulatory, as6 14:08 Condition: stable 14:08 Discharge instructions given to patient, Instructed on discharge instructions, follow up and referral plans. medication usage, Demonstrated understanding of instructions, follow-up care, medications, Prescriptions given X 3, 14:08 Patient left the ED. as6 Signatures: Dispatcher [employer] [facility] Rosalio Booker, RN RN as6 Lena Coy, FREIGHT CHECKER FREIGHT CHECKER 7 Amanda Gamboa, IVAN RN nj1 Clover Nicole ra3 Corrections: (The following items were deleted from the chart) 13:11 13:08 Pulse 85bpm; Resp 17bpm; Pulse Ox 99%; Temp 98.3F Oral; 81.65 kg; Height 5 ft. 6 nj1 in.; BMI: 29.0; Pain 8/10, Adult; nj1
--- NOTE | 2023-07-29 13:58 | EDPHYS ---
Physician Documentation [facility] Name: Maria Isabel Mills Age: 57 yrs Sex: Female : 1965 Arrival Date: 07/29/2023 Time: 13:01 Bed 19 Private MD: ED Physician Oscar Kendrick HPI: 07/28 13:08 This 57 yrs old Female presents to ER via Ambulatory with complaints of Sore Throat, jh7 Ear Pain. 13:08 The patient presents with sore throat. The patient describes throat pain as burning. jh7 Onset: The symptoms/episode began/occurred 3 day(s) ago. Associated signs and symptoms: Pertinent positives: cough, rhinorrhea, Pertinent negatives shortness of breath, vomiting. Patient reports sore throat on Monday then cough with colored sputum and congestion starting . She denies shortness of breath or fever.. Historical: - Allergies: 13:11 Augmentin; nj1 13:11 tramadol; nj1 13:11 Ultram; nj1 - PMHx: 13:11 Depression; GERD; Hypothyroidism; nj1 - PSHx: 13:11 section; Cholecystectomy; gastric sleeve; Operative procedure on knee; nj1 - Immunization history:: Client reports receiving the 2nd dose of the Covid vaccine. - Social history:: Smoking status: Patient/guardian denies using tobacco, the patient reports quitting approximately 1 years ago. ROS: 13:08 Constitutional: Negative for fever, chills, and weight loss, Eyes: Negative for injury, jh7 pain, redness, and discharge, Neck: Negative for injury, pain, and swelling, Cardiovascular: Negative for chest pain, palpitations, and edema, Abdomen/GI: Negative for abdominal pain, nausea, vomiting, diarrhea, and constipation, Back: Negative for injury and pain, MS/Extremity: Negative for injury and deformity, Skin: Negative for injury, rash, and discoloration, Neuro: Negative for headache, weakness, numbness, tingling, and seizure, 13:08 ENT: Positive for nasal discharge, sore throat, 13:08 Respiratory: Positive for cough, wheezing, Negative for shortness of breath, 13:08 All other systems are negative, Exam: 13:08 Constitutional: This is a well developed, well nourished patient who is awake, alert, jh7 and in no acute distress. Head/Face: Normocephalic, atraumatic. Eyes: Pupils equal round and reactive to light, extra-ocular motions intact. Lids and lashes normal. Conjunctiva and sclera are non-icteric and not injected. Cornea within normal limits. Periorbital areas with no swelling, redness, or edema. Neck: Trachea midline, no thyromegaly or masses palpated, and no cervical lymphadenopathy. Supple, full range of motion without nuchal rigidity, or vertebral point tenderness. No Meningismus. Cardiovascular: Regular rate and rhythm with a normal S1 and S2. No gallops, murmurs, or rubs. Normal PMI, no JVD. No pulse deficits. Respiratory: Lungs have equal breath sounds bilaterally, clear to auscultation and percussion. No rales, rhonchi or wheezes noted. No increased work of breathing, no retractions or nasal flaring. Abdomen/GI: Soft, non-tender, with normal bowel sounds. No distension or tympany. No guarding or rebound. No evidence of tenderness throughout. Back: No spinal tenderness. No costovertebral tenderness. Full range of motion. Skin: Warm, dry with normal turgor. Normal color with no rashes, no lesions, and no evidence of cellulitis. MS/ Extremity: Pulses equal, no cyanosis. Neurovascular intact. Full, normal range of motion. Neuro: Awake and alert, GCS 15, oriented to person, place, time, and situation. Motor strength 5/5 in all extremities. Sensory grossly intact. Normal gait. 13:08 ENT: Posterior pharynx: pooling of secretions, that are mild, Vital Signs: 13:08 BP 142 / 81; Pulse 85; Resp 17; Temp 98.3(O); Pulse Ox 99% ; Weight 81.65 kg; Height 5 nj1 ft. 6 in. ; Pain 8/10; 13:39 BP 126 / 82; Pulse 68; Resp 18 S; Pulse Ox 100% on R/A; as6 14:07 BP 139 / 87; Pulse 64; Resp 16 S; Pulse Ox 100% on R/A; as6 13:08 Body Mass Index 29.05 (81.65 kg, 167.64 cm) [facility] 13:08 Pain Scale: Adult [facility] MDM: 13:04 Patient medically screened. [facility] 14:00 Differential diagnosis: bronchitis, pharyngitis, upper respiratory infection, viral jh7 syndrome pneumonia. Data reviewed: vital signs, nurses notes, lab test result(s), radiologic studies, plain films. I considered the following discharge prescriptions or medication management in the emergency department Medications were administered in the Emergency Department. See MAR. Independent interpretation of the following test(s) in the Emergency Department X-Ray: My interpretation is no acute findings. Counseling: I had a detailed discussion with the patient and/or guardian regarding the historical points, exam findings, and any diagnostic results supporting the discharge/admit diagnosis, to return to the emergency department if symptoms worsen or persist or if there are any questions or concerns that arise at home. Response to treatment: the patient's symptoms have markedly improved after treatment. 07/28 13:13 Order name: SARS RAPID; Complete Time: 13:41 [facility] 07/28 13:13 Order name: Flu; Complete Time: 13:56 [facility] 07/28 13:22 Order name: XRAY Chest (1 view); Complete Time: 13:41 [facility] Administered Medications: 13:32 Drug: DuoNeb Nebulize (3:1) (2.5 mg - 0.5 mg) 3 ml Nebulizer once Route: Nebulizer; as6 14:06 Follow up: Response: No adverse reaction as6 Disposition Summary: 07/29/23 13:58 Discharge Ordered Notes: Location: Home [facility] Problem: new [facility] Symptoms: have improved [facility] Condition: Stable [facility] Diagnosis - Acute bronchitis, unspecified [facility] Followup: [facility] - With: Private Physician - When: 2 - 3 days - Reason: Recheck today's complaints Discharge Instructions: - Discharge Summary Sheet [facility] - Acute Bronchitis, Adult [facility] Forms: - Work release form as6 - Medication Reconciliation Form 7 - Thank You Letter 7 - Antibiotic Education [facility] - Patient Portal Instructions [facility] - Leadership Thank You Letter [facility] Prescriptions: - Bromfed DM 2-30-10 mg/5 mL Oral syrup - administer 10 milliliter ORAL route every 4-6 hours As needed; 240 milliliter; 7 Refills: 0, Product Selection Permitted - albuterol sulfate 90 mcg/actuation Inhalation HFA Aerosol Inhaler - inhale 1 inhalation INHALATION route every 4-6 hours As needed; 1 Each; 7 Refills: 0, Product Selection Permitted - Medrol (Cirilo) 4 mg Oral Tablets, Dose Pack - take 1 tablet ORAL route as directed - follow package instructions; 1 packet; jh7 Refills: 0, Product Selection Permitted Signatures: Dispatcher [employer] Rosalio Walters RN RN as6 Lena Coy, TRACK LINER OPERATOR TRACK LINER OPERATOR jh7 Amanda Gamboa RN RN nj1
[2023-07-29 14:32] VITALS: BP 139/87; TEMP 98.3; O2SAT 100
== END ==
LOC: ER 13:01
DX: J20.9 Acute bronchitis, unspecified (principal); Z11.52 Encounter for screening for COVID-19; Z88.1 Allergy status to other antibiotic agents; Z88.5 Allergy status to narcotic agent
CPT/HCPCS: 36415; 87804 ×2; 71045; 94640; 99284; 87811; J7613 ×2; J7644

== ENCOUNTER 2024-01-28 12:54 | Emergency (ER) | payer BC ==
[2024-01-28] MEDS ORDERED: ONDANSETRON 4 MG/2 ML VIAL ONE (13:22)
[2024-01-28] MEDS ORDERED: MORPHINE 4 MG/ML SYR ONE (13:22)
[2024-01-28] MEDS ORDERED: KETOROLAC 30 MG/ML INJ ONE (13:22)
--- NOTE | 2024-01-28 14:04 | RAD REPORT ---
EXAM DESCRIPTION: RAD - Knee Right 3 View - 01/28/2024 1:55 pm CLINICAL HISTORY: PAIN COMPARISON: No comparisons FINDINGS: [id number] tricompartmental osteoarthritis, greatest medially. No acute fracture or dislocation seen. No significant joint effusion.
--- NOTE | 2024-01-28 14:04 | RAD REPORT ---
EXAM DESCRIPTION: RAD - Knee Left 3 View - 01/28/2024 1:54 pm CLINICAL HISTORY: PAIN COMPARISON: No comparisons FINDINGS: Left total knee arthroplasty is noted. No evidence of hardware loosening or infection. No fracture appreciated. Mild anterior soft tissue swelling.
[2024-01-28] MEDS ORDERED: HYDROCODONE/APAP 10/325 TAB ONE (14:40)
--- NOTE | 2024-01-28 16:16 | RAD REPORT ---
EXAM DESCRIPTION: CT - Knee Right Wo Cont - 01/28/2024 4:08 pm CLINICAL HISTORY: rule out tibial plateau fracture Fall, trauma, knee pain COMPARISON: Knee Right 3 View dated 01/28/2024 FINDINGS: No acute fracture or dislocation is appreciated. No aggressive bone lesion. Tricompartment al osteoarthritis is seen, moderate. No soft tissue mass or hematoma. No significant intra-articular joint fluid. IMPRESSION: No fracture evident. All CT scans are performed using dose optimization technique as appropriate and may include automated exposure control or mA/KV adjustment according to patient size.
--- NOTE | 2024-01-28 16:31 | ER ---
Nurse's Notes [facility] Name: Maria Isabel Mills Age: 58 yrs Sex: Female : 1965 Arrival Date: 01/28/2024 Time: 12:54 Bed 6 Private MD: Diagnosis: Mechanical fall;Bilateral knee pain Presentation: 01/27 13:02 Chief complaint: Patient states: last night fell on both knees at [facility]. tm6 Bilaterally knee pain and right foot pain. Right side hurts worse than left. Coronavirus screen: Vaccine status: Patient reports receiving the 2nd dose of the covid vaccine. Ebola Screen: Patient negative for fever greater than or equal to 101.5 degrees Fahrenheit, and additional compatible Ebola Virus Disease symptoms Patient denies exposure to infectious person. Patient denies travel to an Ebola-affected area in the 21 days before illness onset. No symptoms or risks identified at this time. Initial Sepsis Screen: Does the patient meet any 2 criteria? No. Patient's initial sepsis screen is negative. Does the patient have a suspected source of infection? No. Patient's initial sepsis screen is negative. Risk Assessment: Do you want to hurt yourself or someone else? Patient reports no desire to harm self or others. Onset of symptoms was January 27, 2024. 13:02 Method Of Arrival: Wheelchair tm6 13:02 Acuity: TOMASZ 4 tm6 Triage Assessment: 13:03 General: Appears in no apparent distress. Behavior is calm, cooperative. Pain: tm6 Complains of pain in right foot, right leg and left leg Pain does not radiate. Pain currently is 9 out of 10 on a pain scale. Quality of pain is described as sharp, shooting, Pain began 1 day ago. EENT: No signs and/or symptoms were reported regarding the EENT system. Neuro: Level of Consciousness is awake, alert, obeys commands, Oriented to person, place, time, situation. Cardiovascular: Patient's skin is warm and dry. Respiratory: Airway is patent Respiratory effort is even, unlabored, Respiratory pattern is regular, symmetrical. GI: No signs and/or symptoms were reported involving the gastrointestinal system. Abdomen is flat, non-distended. : No signs and/or symptoms were reported regarding the genitourinary system. Derm: No signs and/or symptoms reported regarding the dermatologic system. Musculoskeletal: Reports pain in right foot, right leg and left leg since last night when she fell. Pain is 9 out of 10 on a pain scale. Historical: - Allergies: 13:03 Augmentin; tm6 13:03 Ultram; tm6 13:03 tramadol; tm6 - PMHx: 13:03 Hypothyroidism; GERD; Depression; tm6 - PSHx: 13:03 section; Cholecystectomy; gastric sleeve; Operative procedure on knee; tm6 - Immunization history:: Client reports receiving the 2nd dose of the Covid vaccine. - Infectious Disease History:: Denies. - Social history:: Smoking status: Patient/guardian denies using tobacco, the patient reports quitting approximately 1 years ago, Patient uses alcohol, occasionally. - Family history:: not pertinent. Screenin:28 [facility] ED Fall Risk Assessment (Adult) History of falling in the last 3 months, ph including since admission Yes- single mechanical fall (1 pt) Confusion or Disorientation No (0 pts) Intoxicated or Sedated No (0 pts) Impaired Gait Yes (1 pt) Mobility Assist Device Used No (0 pt) Altered Elimination No (0 pt) Score/Fall Risk Level 0 - 2 = Low Risk Oriented to surroundings, Maintained a safe environment, Hourly rounding (assess needs \T\ fall precautionary measures) done. Abuse screen: Denies threats or abuse. Denies injuries from another. Nutritional screening: No deficits noted. Tuberculosis screening: No symptoms or risk factors identified. Assessment: 13:27 General: Appears in no apparent distress. Behavior is calm, cooperative. Pain: ph Complains of pain in right knee. Pain: Complains of pain in left knee. Neuro: Level of Consciousness is awake, alert, obeys commands, Oriented to person, place, time, situation. Cardiovascular: Capillary refill < 3 seconds in bilateral fingers Patient's skin is warm and dry. Derm: Skin is pink, warm \T\ dry. 15:00 Reassessment: Patient appears in no apparent distress at this time. Patient and/or ph family updated on plan of care and expected duration. Pain level reassessed. Patient is alert, oriented x 3, equal unlabored respirations, skin warm/dry/pink. Vital Signs: 13:02 BP 122 / 86; Pulse 75; Resp 20; Temp 97.7(O); Pulse Ox 100% on R/A; Weight 69.4 kg; tm6 Height 5 ft. 6 in. ; Pain 9/10; 14:30 BP 118 / 76; Pulse 71; Resp 18; Pulse Ox 98% on R/A; ph 16:00 BP 123 / 80; Pulse 74; Resp 18; Pulse Ox 99% on R/A; ph 13:02 Body Mass Index 24.69 (69.40 kg, 167.64 cm) tm6 13:02 Pain Scale: Adult tm6 ED Course: 12:59 Patient arrived in ED. sj2 13:02 Junior Ferreira MD is Attending Physician. rt 13:03 Triage completed. tm6 13:03 Arm band placed on left wrist. tm6 13:11 Darcie Ayon, RN is Primary Nurse. ph 13:24 Inserted saline lock: 22 gauge in right forearm, using aseptic technique. Flushed with em1 10 mL NS. 13:28 Patient has correct armband on for positive identification. Bed in low position. Call ph light in reach. Pulse ox on. NIBP on. Door closed. Noise minimized. Warm blanket given. Pillow given. 13:56 Knee Left 3 View XRAY In Process Unspecified. EDMS 13:56 Knee Right 3 View XRAY In Process Unspecified. EDMS 16:10 Knee Right Wo Cont In Process Unspecified. EDMS 16:29 Grant Zhou MD is Referral Physician. rt 16:55 No provider procedures requiring assistance completed. IV discontinued, intact, ph bleeding controlled, No redness/swelling at site. Pressure dressing applied. Administered Medications: 13:26 Drug: Ondansetron IVP 4 mg IVP once; over 2 minutes Route: IVP; Site: right forearm; ph 13:45 Follow up: Response: No adverse reaction ph 13:27 Drug: Ketorolac IVP 15 mg IVP once Route: IVP; Site: right forearm; ph 13:45 Follow up: Response: No adverse reaction ph 13:27 Drug: morphine IVP or IV 4 mg IVP once over 4 mins Route: IVP; Infused Over: 4 mins; ph Site: right forearm; 13:45 Follow up: Response: No adverse reaction; Pain is decreased; RASS: Alert and Calm (0) ph 14:45 Drug: [place] PO 10 mg-325 mg 1 tabs PO once Route: PO; db 15:15 Follow up: Response: No adverse reaction; Pain is decreased; RASS: Alert and Calm (0) ph Medication: 13:28 VIS not applicable for this client. ph Outcome: 16:30 Discharge ordered by . rt 16:55 Patient left the ED. hb 16:55 Discharged to home via wheelchair, with family, ph 16:55 Condition: good 16:55 Discharge instructions given to patient, Instructed on discharge instructions, follow up and referral plans. Demonstrated understanding of instructions, follow-up care, Signatures: Dispatcher [employer] Julio César Anthony em1 Darcie Ayon RN RN ph Gay Viera RN RN Tatyana Meyers RN RN db Junior Ferreira MD MD rt Serena Fulton RN RN 6 Eleanor Conley 2
--- NOTE | 2024-01-28 16:31 | EDPHYS ---
Physician Documentation [facility] Name: Maria Isabel Mills Age: 58 yrs Sex: Female : 1965 Arrival Date: 01/28/2024 Time: 12:54 Bed 6 Private MD: ED Physician Junior Ferreira HPI: 01/27 17:37 This 58 yrs old Female presents to ER via Wheelchair with complaints of Knee Injury, rt Leg Pain, Fall Injury. 17:37 Patient presents to the ED with injury to both knees. This occurred last night the rt patient was bowling, lost her balance landing on both knees. Reports of pain to both knees, worse on the right compared to the left. Pain did worsen today. Had initial relief with some Advil, denies other injury, acute complaints, symptoms are moderate in severity, no other aggravating or alleviating factors.. Historical: - Allergies: 13:03 Augmentin; tm6 13:03 Ultram; tm6 13:03 tramadol; tm6 - PMHx: 13:03 Hypothyroidism; GERD; Depression; tm6 - PSHx: 13:03 section; Cholecystectomy; gastric sleeve; Operative procedure on knee; tm6 - Immunization history:: Client reports receiving the 2nd dose of the Covid vaccine. - Infectious Disease History:: Denies. - Social history:: Smoking status: Patient/guardian denies using tobacco, the patient reports quitting approximately 1 years ago, Patient uses alcohol, occasionally. - Family history:: not pertinent. ROS: 17:37 Constitutional: Negative for fever, chills, and weight loss, Cardiovascular: Negative rt for chest pain, palpitations, and edema, Respiratory: Negative for shortness of breath, cough, wheezing, and pleuritic chest pain, Abdomen/GI: Negative for abdominal pain, nausea, vomiting, diarrhea, and constipation, Skin: Negative for injury, rash, and discoloration, Neuro: Negative for headache, weakness, numbness, tingling, and seizure, 17:37 MS/extremity: Positive for pain, Negative for deformity, Exam: 17:37 Constitutional: This is a well developed, well nourished patient who is awake, alert, rt and in no acute distress. Head/Face: Normocephalic, atraumatic. Chest/axilla: Normal chest wall appearance and motion. Nontender with no deformity. No lesions are appreciated. Cardiovascular: Regular rate and rhythm with a normal S1 and S2. No gallops, murmurs, or rubs. Normal PMI, no JVD. No pulse deficits. Respiratory: Lungs have equal breath sounds bilaterally, clear to auscultation and percussion. No rales, rhonchi or wheezes noted. No increased work of breathing, no retractions or nasal flaring. Abdomen/GI: Soft, non-tender, with normal bowel sounds. No distension or tympany. No guarding or rebound. No evidence of tenderness throughout. Skin: Warm, dry with normal turgor. Normal color with no rashes, no lesions, and no evidence of cellulitis. 17:37 Musculoskeletal/extremity: Tenderness to bilateral knees, no lacerations, contusion. Pulses, motor, sensation intact. Vital Signs: 13:02 BP 122 / 86; Pulse 75; Resp 20; Temp 97.7(O); Pulse Ox 100% on R/A; Weight 69.4 kg; tm6 Height 5 ft. 6 in. ; Pain 9/10; 14:30 BP 118 / 76; Pulse 71; Resp 18; Pulse Ox 98% on R/A; ph 16:00 BP 123 / 80; Pulse 74; Resp 18; Pulse Ox 99% on R/A; ph 13:02 Body Mass Index 24.69 (69.40 kg, 167.64 cm) tm6 13:02 Pain Scale: Adult tm6 MDM: 13:09 Patient medically screened. rt 17:37 Differential diagnosis: Fracture, contusion. Data reviewed: vital signs, nurses notes, rt radiologic studies. I considered the following discharge prescriptions or medication management in the emergency department Medications were administered in the Emergency Department. See MAR. Independent interpretation of the following test(s) in the Emergency Department X-Ray: My interpretation is No fracture seen on interpretation of x-ray images. Counseling: I had a detailed discussion with the patient and/or guardian regarding the historical points, exam findings, and any diagnostic results supporting the discharge/admit diagnosis, radiology results, the need for outpatient follow up. Response to treatment: the patient's symptoms have markedly improved after treatment. 01/27 13:16 Order name: Knee Left 3 View XRAY; Complete Time: 14:05 rt 01/27 13:16 Order name: Knee Right 3 View XRAY; Complete Time: 14:05 rt 01/27 14:58 Order name: Knee Right Wo Cont; Complete Time: 16:20 EDMS Administered Medications: 13:26 Drug: Ondansetron IVP 4 mg IVP once; over 2 minutes Route: IVP; Site: right forearm; ph 13:45 Follow up: Response: No adverse reaction ph 13:27 Drug: Ketorolac IVP 15 mg IVP once Route: IVP; Site: right forearm; ph 13:45 Follow up: Response: No adverse reaction ph 13:27 Drug: morphine IVP or IV 4 mg IVP once over 4 mins Route: IVP; Infused Over: 4 mins; ph Site: right forearm; 13:45 Follow up: Response: No adverse reaction; Pain is decreased; RASS: Alert and Calm (0) ph 14:45 Drug: [place] PO 10 mg-325 mg 1 tabs PO once Route: PO; db 15:15 Follow up: Response: No adverse reaction; Pain is decreased; RASS: Alert and Calm (0) ph Disposition Summary: 01/28/24 16:30 Discharge Ordered Notes: Location: Home rt Condition: Stable rt Diagnosis - Mechanical fall rt - Bilateral knee pain rt Followup: rt - With: Grant Zhou MD - When: 5 - 6 days - Reason: Discharge Instructions: - Discharge Summary Sheet rt - Acute Knee Pain, Adult rt Forms: - Medication Reconciliation Form rt - Antibiotic Education rt - Prescription Opioid Use rt - Patient Portal Instructions rt - Leadership Thank You Letter rt Signatures: Dispatcher [employer] EDDarcie Jackson RN RN Tatyana Meyers RN RN db Junior Ferreira MD MD rt Serena Fulton RN RN tm6 Corrections: (The following items were deleted from the chart) 14:58 14:38 CT RIGHT KNEE WO CONTRAST ordered. EDMS EDMS
[2024-01-28 16:59] VITALS: BP 122/86; TEMP 97.7; O2SAT 100
== END 2024-01-28 16:55 | disposition home or self-care (01) ==
LOC: ER 12:54
DX: M25.562 Pain in left knee (principal); M25.561 Pain in right knee; E03.9 Hypothyroidism, unspecified; W18.39XA Other fall on same level, initial encounter; Y93.54 Activity, bowling; Y92.89 Other specified places as the place of occurrence of the external cause; Y99.8 Other external cause status; Z88.5 Allergy status to narcotic agent; Z88.1 Allergy status to other antibiotic agents
CPT/HCPCS: 73700; 73562 ×2; 96375; 96374; 99284; J2405

== ENCOUNTER 2024-01-30 12:25 | Inpatient (IN) | payer BC ==
[2024-01-30] MEDS ORDERED: ONDANSETRON 4 MG/2 ML VIAL ONE (13:38)
[2024-01-30] MEDS ORDERED: HYDROMORPHONE HCL 1 MG/ML INJ ONE (13:38)
[2024-01-30] MEDS ORDERED: VANCOMYCIN 1 GM/VIAL ONE (13:38)
[2024-01-30] MEDS ORDERED: NA CHLORIDE 0.9% 250 ML ONE (13:39)
[2024-01-30 13:44] LABS: Absolute Basophils 0.1 K/uL (0-0.5); Absolute Eosinophils 0.1 K/uL (0-0.5); Absolute Monocytes 1.1 K/uL (0.1-1.3); Absolute Neutrophil 6.4 K/uL (1.8-8.0); Basophils % 0.9 % (0-1.3); Eosinophils % 0.7 % (0-4.4); Hematocrit 44.6 % (36.0-45.0); Hemoglobin 14.9 g/dL (12.0-15.0); Lymphocytes % 20.4 % (15.3-44.8); MCH 28.3 pg (27.0-35.0); MCHC 33.3 g/dL (32.0-36.0); MPV 8.9 fL (7.6-11.3); Monocytes % 11.3 % (3.3-12.3); Neutrophils % 66.7 % (41.7-73.7); Platelets 301 thou/uL (152-406); RBC Red Blood Cell Count 5.25 M/uL (3.86-4.86); Red Cell Distribution Width 13.2 % (12.1-15.2)
[2024-01-30 14:04] LABS: Albumin 3.9 g/dL (3.4-5.0); Anion Gap 7.3 mEq/L (5.0-15.0); Bilirubin Total 1.1 mg/dL (0.2-1.0); Globulin 3.9 g/dL (2.3-3.5); Potassium 3.3 mEq/L (3.5-5.1); Protein, Total 7.8 g/dL (6.4-8.2)
--- NOTE | 2024-01-30 14:30 | ER ---
Nurse's Notes [facility] Name: Maria Isabel Mills Age: 58 yrs Sex: Female : 1965 Arrival Date: 01/30/2024 Time: 12:25 Bed 19 Private MD: Diagnosis: Left elbow cellulitis versus septic bursitis Presentation: 01/29 12:37 Chief complaint: Patient states: Pain to left elbow. Pt noted to have redness and cm10 swelling to left elbow. Pt saw PCP yesterday and was told that she had an abscess to left elbow and was given topical ABX. pt woke up today with increased redness and swelling. Coronavirus screen: Client denies travel out of the [place] in the last 14 days. Ebola Screen: Patient denies travel to an Ebola-affected area in the 21 days before illness onset. No symptoms or risks identified at this time. Initial Sepsis Screen: Does the patient meet any 2 criteria? HR > 90 bpm. Does the patient have a suspected source of infection? No. Patient's initial sepsis screen is negative. Risk Assessment: Do you want to hurt yourself or someone else? Patient reports no desire to harm self or others. Onset of symptoms was January 30, 2024. 12:37 Method Of Arrival: Ambulatory cm10 12:37 Acuity: TOMASZ 3 cm10 Triage Assessment: 12:39 General: Appears in no apparent distress. uncomfortable, Behavior is calm, cooperative. cm10 Neuro: No deficits noted. Level of Consciousness is awake, alert, obeys commands, Oriented to person, place, time, situation, Appropriate for age. Respiratory: No deficits noted. Airway is patent Respiratory effort is even, unlabored, Respiratory pattern is regular, symmetrical. Historical: - Allergies: 12:39 Augmentin; cm10 12:39 tramadol; cm10 12:39 Ultram; cm10 - PMHx: 12:39 Depression; GERD; Hypothyroidism; cm10 - PSHx: 12:39 section; Cholecystectomy; gastric sleeve; Operative procedure on knee; cm10 - Immunization history:: Adult Immunizations up to date. - Infectious Disease History:: Denies. - Social history:: Smoking status: Patient denies any tobacco usage or history of. Screenin:39 [facility] ED Fall Risk Assessment (Adult) History of falling in the last 3 months, bp including since admission No falls in past 3 months (0 pts) Confusion or Disorientation No (0 pts) Intoxicated or Sedated No (0 pts) Impaired Gait No (0 pts) Mobility Assist Device Used No (0 pt) Altered Elimination No (0 pt) Score/Fall Risk Level 0 - 2 = Low Risk. Abuse screen: Denies threats or abuse. Denies injuries from another. Nutritional screening: No deficits noted. Tuberculosis screening: No symptoms or risk factors identified. Assessment: 13:00 General: Appears uncomfortable, Behavior is appropriate for age. bp 16:40 Reassessment: REPORT FAXED TO 418. bp Vital Signs: 12:37 BP 113 / 81; Pulse 91; Resp 19; Temp 97.5; Pulse Ox 100% on R/A; Weight 69.85 kg; cm10 Height 5 ft. 6 in. ; Pain 7/10; 16:39 BP 138 / 67; Pulse 89; Resp 16; Pulse Ox 99% ; bp 12:37 Body Mass Index 24.86 (69.85 kg, 167.64 cm) cm10 12:37 Pain Scale: Adult cm10 ED Course: 12:33 Patient arrived in ED. im 12:39 Triage completed. cm10 12:40 Arm band placed on Patient placed in an exam room, on a stretcher. cm10 12:47 Scott Sargent, IVAN is Primary Nurse. bp 12:50 Malena Singh MD is Attending Physician. sp3 13:30 Inserted saline lock: 20 gauge in right forearm, using aseptic technique. Blood bp collected. Flushed with 10 mL NS. 13:30 Initial lab(s) drawn, by ct, sent to lab. First set of blood cultures drawn by me, bp Second set of blood cultures drawn by me. 14:29 Veronica Schroeder MD is Hospitalizing Provider. sp3 16:39 Patient has correct armband on for positive identification. bp 16:39 No provider procedures requiring assistance completed. Patient admitted, IV remains in bp place. Administered Medications: 13:58 Drug: HYDROmorphone IVP 1 mg IVP once Route: IVP; Site: right forearm; bp 16:41 Follow up: Response: No adverse reaction bp 13:59 Drug: vancoMYCIN IVPB 1 grams IVPB once over 2 hrs Route: IVPB; Infused Over: 2 hrs; bp Site: right forearm; 16:41 Follow up: IV Status: Completed infusion; IV Intake: 250ml bp 13:59 Drug: Ondansetron IVP 4 mg IVP once; over 2 minutes Route: IVP; Site: right forearm; bp 16:40 Follow up: Response: No adverse reaction bp Intake: 16:41 IV: 250ml; Total: 250ml. bp Outcome: 14:29 Decision to Hospitalize by Provider. sp3 17:11 Patient left the ED. bp Signatures: Scott Sargent, RN RN bp Malena Singh MD MD sp3 Yusra Aldrich Clarissa, RN RN cm10
--- NOTE | 2024-01-30 14:30 | EDPHYS ---
Physician Documentation [facility] Name: Maria Isabel Mills Age: 58 yrs Sex: Female : 1965 Arrival Date: 01/30/2024 Time: 12:25 Bed 19 Private MD: ED Physician Malena Singh HPI: 01/29 14:16 This 58 yrs old Female presents to ER via Ambulatory with complaints of Arm Pain, Arm sp3 Problem. 14:16 58-year-old female with a history of depression, hypothyroidism presents with left sp3 elbow/upper extremity redness, erythema and swelling semi-PCP. Patient's PCP ordered topical meds which have not helped. Patient states her entire extremity is now swelling and hurting. She denies any fever, headache, neck pain, chest pain, shortness of breath, injury or other abnormality on ROS at this time. Remainder of ROS negative.. Historical: - Allergies: 12:39 Augmentin; cm10 12:39 tramadol; cm10 12:39 Ultram; cm10 - PMHx: 12:39 Depression; GERD; Hypothyroidism; cm10 - PSHx: 12:39 section; Cholecystectomy; gastric sleeve; Operative procedure on knee; cm10 - Immunization history:: Adult Immunizations up to date. - Infectious Disease History:: Denies. - Social history:: Smoking status: Patient denies any tobacco usage or history of. ROS: 14:17 Constitutional: Negative for fever, chills, and weight loss, Eyes: Negative for injury, sp3 pain, redness, and discharge, ENT: Negative for injury, pain, and discharge, Neck: Negative for injury, pain, and swelling, Cardiovascular: Negative for chest pain, palpitations, and edema, Respiratory: Negative for shortness of breath, cough, wheezing, and pleuritic chest pain, Abdomen/GI: Negative for abdominal pain, nausea, vomiting, diarrhea, and constipation, Back: Negative for injury and pain, Neuro: Negative for headache, weakness, numbness, tingling, and seizure, Psych: Negative for depression, anxiety, suicide ideation, homicidal ideation, and hallucinations, Allergy/Immunology: Negative for hives, rash, and allergies, Endocrine: Negative for neck swelling, polydipsia, polyuria, polyphagia, and marked weight changes, Hematologic/Lymphatic: Negative for swollen nodes, abnormal bleeding, and unusual bruising, 14:17 All other systems are negative, Exam: 14:17 Constitutional: This is a well developed, well nourished patient who is awake, alert, sp3 and in no acute distress. Head/Face: Normocephalic, atraumatic. Eyes: Pupils equal round and reactive to light, extra-ocular motions intact. Lids and lashes normal. Conjunctiva and sclera are non-icteric and not injected. Cornea within normal limits. Periorbital areas with no swelling, redness, or edema. Neck: Trachea midline, no thyromegaly or masses palpated, and no cervical lymphadenopathy. Supple, full range of motion without nuchal rigidity, or vertebral point tenderness. No Meningismus. Chest/axilla: Normal chest wall appearance and motion. Nontender with no deformity. No lesions are appreciated. Cardiovascular: Regular rate and rhythm with a normal S1 and S2. No gallops, murmurs, or rubs. Normal PMI, no JVD. No pulse deficits. Respiratory: Lungs have equal breath sounds bilaterally, clear to auscultation and percussion. No rales, rhonchi or wheezes noted. No increased work of breathing, no retractions or nasal flaring. Abdomen/GI: Soft, non-tender, with normal bowel sounds. No distension or tympany. No guarding or rebound. No evidence of tenderness throughout. Back: No spinal tenderness. No costovertebral tenderness. Full range of motion. Neuro: Awake and alert, GCS 15, oriented to person, place, time, and situation. Cranial nerves II-XII grossly intact. Motor strength 5/5 in all extremities. Sensory grossly intact. Cerebellar exam normal. Normal gait. Psych: Awake, alert, with orientation to person, place and time. Behavior, mood, and affect are within normal limits. 14:17 Musculoskeletal/extremity: Left upper extremity erythema and swelling over olecranon bursa.. Vital Signs: 12:37 BP 113 / 81; Pulse 91; Resp 19; Temp 97.5; Pulse Ox 100% on R/A; Weight 69.85 kg; cm10 Height 5 ft. 6 in. ; Pain 7/10; 16:39 BP 138 / 67; Pulse 89; Resp 16; Pulse Ox 99% ; bp 12:37 Body Mass Index 24.86 (69.85 kg, 167.64 cm) cm10 12:37 Pain Scale: Adult cm10 MDM: 12:51 Patient medically screened. sp3 14:27 Data reviewed: vital signs, nurses notes, lab test result(s), radiologic studies. ED sp3 course: 58-year-old female with PMH above now with left elbow swelling and redness. Consider cellulitis versus septic bursitis. Will start vancomycin and admit to the hospital with orthopedic consultation who is at the bedside Dr. Garrett.. 01/29 13:04 Order name: Blood Culture Adult (2) sp3 01/29 13:04 Order name: CBC with Diff; Complete Time: 13:58 sp3 01/29 13:04 Order name: CMP; Complete Time: 14:09 sp3 01/29 13:04 Order name: Lactate w/ 2H reflex if indic.; Complete Time: 14:09 sp3 01/29 16:09 Order name: Thyroid Stimulating Hormone EDMI 01/29 16:09 Order name: Urinalysis w/ reflexes EDMS 01/29 16:09 Order name: CBC with Automated Diff EDMS 01/29 16:09 Order name: CBC with Automated Diff EDMS 01/29 16:09 Order name: CBC with Automated Diff EDMS 01/29 16:09 Order name: CBC with Automated Diff EDMS 01/29 16:09 Order name: Comprehensive Metabolic Panel EDMS 01/29 16:09 Order name: Comprehensive Metabolic Panel EDMS 01/29 16:09 Order name: Comprehensive Metabolic Panel EDMS 01/29 16:09 Order name: Comprehensive Metabolic Panel EDMS 01/29 16:09 Order name: Lipid Profile EDMS 01/29 16:09 Order name: Lipid Profile EDMS 01/29 16:09 Order name: Magnesium EDMS 01/29 16:09 Order name: Magnesium EDMS 01/29 16:09 Order name: Magnesium EDMS 01/29 16:09 Order name: Magnesium EDMS 01/29 16:09 Order name: Protime (+INR) EDMS 01/29 16:09 Order name: Protime (+INR) EDMS 01/29 16:09 Order name: Protime (+INR) EDMS 01/29 16:09 Order name: Protime (+INR) EDMS 01/29 16:09 Order name: Chest Single View EDMS 01/29 16:09 Order name: CONS Physician Consult EDMI 01/29 16:09 Order name: EKG Electrocardiogram EDMS 01/29 13:04 Order name: IV Saline Lock - Large Bore; Complete Time: 13:29 sp3 01/29 13:04 Order name: Labs collected and sent; Complete Time: 13:29 sp3 01/29 13:04 Order name: Vital Signs; Complete Time: 13:29 sp3 Administered Medications: 13:58 Drug: HYDROmorphone IVP 1 mg IVP once Route: IVP; Site: right forearm; bp 16:41 Follow up: Response: No adverse reaction bp 13:59 Drug: vancoMYCIN IVPB 1 grams IVPB once over 2 hrs Route: IVPB; Infused Over: 2 hrs; bp Site: right forearm; 16:41 Follow up: IV Status: Completed infusion; IV Intake: 250ml bp 13:59 Drug: Ondansetron IVP 4 mg IVP once; over 2 minutes Route: IVP; Site: right forearm; bp 16:40 Follow up: Response: No adverse reaction bp Disposition Summary: 01/30/24 14:29 Hospitalization Ordered Notes: Hospitalization Status: Inpatient Admission sp3 Provider: Veronica Schroeder sp3 Condition: Stable sp3 Problem: an acute exacerbation sp3 Symptoms: have worsened sp3 Bed/Room Type: Standard sp3 Location: Telemetry/MedSurg (Inpatient)(01/30/24 16:27) bd Room Assignment: 418(01/30/24 16:27) bd Diagnosis - Left elbow cellulitis versus septic bursitis sp3 Forms: - Medication Reconciliation Form sp3 - SBAR form sp3 - Leadership Thank You Letter sp3 Signatures: Dispatcher [employer] [facility] [employer] catherineara bd Scott Sargent RN RN bp Malena Singh MD MD sp3 Erika Saab RN RN cm10 Corrections: (The following items were deleted from the chart) 14:28 14:27 Data reviewed: vital signs, nurses notes, lab test result(s), radiologic studies, sp3 sp3 14:28 14:27 ED course: 58-year-old female with PMH above now with left elbow swelling and sp3 redness. Consider cellulitis versus septic bursitis. Will start vancomycin and admit to the hospital with orthopedic consultation.. sp3 1551 14:29 Telemetry/MedSurg (Inpatient) sp3 bd 15:51 14:29 sp3 bd 16: 15:51 [facility] ER HOLD bd bd 16: 15:51 ERHOLD- bd bd 16: 16:27 bd bd
--- NOTE | 2024-01-30 14:32 | P.HP ---
Certification for Inpatient Patient admitted to: Inpatient With expected LOS: >2 Midnights <Abida Benson - Last Filed: 01/30/24 18:26> Patient History Date of Service: 01/30/24 <Veronica Schroeder - Last Filed: 01/30/24 17:00> Date of Service: 01/30/24 Reason for admission: Left elbow pain bursitis/cellulitis History of Present Illness: Ms. Mills is a 58-year-old female with a past medical history of depression, hypothyroidism, and osteoarthritis. She states a few days ago she went bowling and then tripped and fell to her knees without any contact of her upper extremities. She was seen in the emergency department and discharged home with x-rays negative for fracture. She states in the last 2 days her left elbow became more stiff and she noted at white pustule over the bursa. She woke this morning with pain in her left elbow, increased area of induration/"boil", and swelling and redness down her forearm. She states the bones of her wrist and hand are tender. On evaluation in the emergency department, she has mildly limited range of motion of her left elbow. She appears to have a left olecranon abscess with cellulitis down her left forearm. Dr. Garrett was asked to evaluate and the patient will be kept n.p.o. after 8 AM in case of worsening overnight. Labs: CBC unremarkable Sodium 135, potassium 3.3, lactic acid 1.3, TSH pending Chest x-ray for preop clearance with no acute findings EKG pending Home medications list reviewed: Yes - Past Medical/Surgical History Has patient received pneumonia vaccine in the past: No -: Osteoarthritis -: Hypertension -: Hyperlipidemia -: Hypothyroidism -: Depression -: GERD -: -: Multiple knee surgeries -: Cholecystectomy -: Gastric sleeve Psychosocial/ Personal History: Quit smoking 1 year ago in September. Drinks socially on the weekends - Social History Smoking Status: Former smoker Alcohol use: Yes CD- Drugs: No Caffeine use: Yes Place of Residence: Home <Abida Benson - Last Filed: 01/30/24 18:26> Allergies amoxicillin [From Augmentin] Allergy (Verified 10/11/23 08:49) Itching clavulanic acid [From Augmentin] Allergy (Verified 10/11/23 08:49) Itching tramadol Allergy (Verified 10/11/23 08:49) Anaphylaxis Home Medications: Atorvastatin Calcium 20 mg PO DAILY 10/11/23 Bupropion HCl [Budeprion Xl] 300 mg PO DAILY 10/11/23 Ergocalciferol (Vitamin D2) [Vitamin D2] 1,250 mcg PO Q7D 10/11/23 Gabapentin 300 mg PO TID 10/11/23 Inotersen Sodium [Tegsedi] 284 mg SQ Q7D 10/11/23 LORazepam [Ativan] 0.5 mg PO DAILY PRN 10/11/23 Levothyroxine Sodium 100 mcg PO DAILY 10/11/23 Omeprazole [Prilosec] 40 mg PO DAILY 10/11/23 Phentermine HCl 37.5 mg PO DAILY 10/11/23 Semaglutide [Ozempic] 0.25 mg SQ Q7D 10/11/23 Trazodone [Desyrel] 50 mg PO BEDTIME 10/11/23 Review of Systems 10-point ROS is otherwise unremarkable Musculoskeletal: Arm Pain, As per HPI Integumentary: Lesions, As per HPI <Abida Benson - Last Filed: 01/30/24 18:26> Physical Examination - Studies Laboratory Data (last 24 hrs) 01/30/24 01/30/24 13:30 13:30 WBC 9.70 Hgb 14.9 Hct 44.6 Plt Count 301 Sodium 135 L Potassium 3.3 L BUN 12 Creatinine 0.70 Glucose 97 Total Bilirubin 1.1 H AST 12 L ALT 19 Alkaline Phosphatase 98 <Veronica Schroeder - Last Filed: 01/30/24 17:00> - Physical Exam General: Alert, In no apparent distress, Oriented x3, Other (Hyperemic) HEENT: Atraumatic, Normocephalic, Other (Hoarse voice) Neck: Supple Respiratory: Clear to auscultation bilaterally, Normal air movement Cardiovascular: Normal pulses, Regular rate/rhythm Capillary refill: <2 Seconds Gastrointestinal: Normal bowel sounds Musculoskeletal: Swelling, Erythema, Tenderness, Warmth, Other (Tightness with indurated draining pustule at left olecranon) Integumentary: Tenderness/swelling, Erythema, Warmth, Other (To left olecranon) Neurological: Normal speech, Normal tone, Normal affect Lymphatics: No axilla or inguinal lymphadenopathy External genitalia: Deferred Rectal: Deferred - Studies Laboratory Data (last 24 hrs) 01/30/24 01/30/24 13:30 13:30 WBC 9.70 Hgb 14.9 Hct 44.6 Plt Count 301 Sodium 135 L Potassium 3.3 L BUN 12 Creatinine 0.70 Glucose 97 Total Bilirubin 1.1 H AST 12 L ALT 19 Alkaline Phosphatase 98 <Abida Benson - Last Filed: 01/30/24 18:26> Assessment and Plan Physician Review Additional Text: Pt seen and examined. I agree with the note by the DESIZING MACHINE OFFBEARER. Pt is a 58 yo female with past medical history of depression, GERD and hypothyroidism who presents with left elbow pain, erythema and swelling. Pt went to his PCP and he prescribed a topical ointment that did not relieve the symptoms. They progressively worsened and pt came to the ER for evaluation. On admission, lab studies show wbc 9.7, Hgb 14.9, K 3.3, Cr 0.7, Gluc 97. ER physician gave iv vanc. At bedside, pt is in NAD. A/P: Left elbow cellulitis: Will continue iv vanc and f/u blood cx. Will keep her NPO after 8am for possible surgical intervention. Hypothyroidism: Synthroid Hypokalemia: K is 3.3. Will replete and monitor. Depression: Continue home med GERD: protonix DVT ppx: SCD Code: full <Veronica Schroeder - Last Filed: 01/30/24 17:00> - Plan Leftt elbow cellulitis/abscess 1. Continue IV antibiotics 2. Continue with local wound care 3. Wound care consultation/surgical consultation - Dr. Garrett assessing 4. Gentle IV hydration 5. Monitor and trend labs 6. Strict blood sugar monitoring 7. Pain control 8. GI and DVT prophylaxis Plan to discharge in: Greater than 2 days - Advance Directives Does patient have a Living Will: No Does patient have a Durable POA for Healthcare: No - Code Status/Comfort Care Code Status Assessed: Yes (Full) <Abida Benson - Last Filed: 01/30/24 18:26>
[2024-01-30] MEDS ORDERED: TETANUS & DIPHTHERIA TOX,ADULT 0.5 ML VIAL IMVAC ONE (15:50)
[2024-01-30] MEDS ORDERED: SODIUM CHLORIDE 0.9% 10ML INJ IV PRN (15:50)
[2024-01-30] MEDS: NA CHLORIDE 0.9% 1,000 ML IV SCH (16:00)
[2024-01-30] MEDS ORDERED: NA CHLORIDE 0.9% 1,000 ML ONE (16:27)
[2024-01-30] MEDS ORDERED: MORPHINE 4 MG/ML SYR ONE (16:27)
[2024-01-30] MEDS ORDERED: GABAPENTIN 300 MG CAP ONE (16:27)
[2024-01-30] MEDS ORDERED: TDAP (DIPHTH,PERTUSS(ACELL),TET VAC) 0.5 ML VIAL IMVAC ONE (16:27)
[2024-01-30] MEDS: TDAP (DIPHTH,PERTUSS(ACELL),TET VAC) 0.5 ML VIAL IMVAC ONE (16:35)
[2024-01-30] MEDS: MORPHINE 4 MG/ML SYR IV PRN (16:36)
[2024-01-30] MEDS: GABAPENTIN 300 MG CAP PO SCH (16:36)
--- NOTE | 2024-01-30 17:15 | RAD REPORT ---
EXAM DESCRIPTION: RAD - Chest Single View - 01/30/2024 4:35 pm CLINICAL HISTORY: pre-op clearance Chest pain. COMPARISON: Chest Single View dated 07/29/2023; Chest Single View dated 12/22/2022 FINDINGS: Portable technique limits examination quality. The lungs are grossly clear. The heart is normal in size. No displaced fractures. IMPRESSION: No acute intrathoracic process suspected.
[2024-01-30] MEDS: VANCOMYCIN 750 MG in NA CHLORIDE 0.9% 150 ML IVPB ONE (18:04)
[2024-01-30 18:09] VITALS: BMI 24.8
[2024-01-30] MEDS: buPROPion HCL 100 MG TAB PO SCH (19:53)
[2024-01-30] MEDS: PANTOPRAZOLE 40 MG INJ IVP SCH (19:53)
[2024-01-30] MEDS: CEFEPIME 2 GM in NA CHLORIDE 0.9% 100 ML IV SCH (19:53)
[2024-01-30] MEDS: IPRATROPIUM BROM 0.5MG/2.5ML NEB SCH (20:33)
[2024-01-30] MEDS: ARFORMOTEROL TARTRATE 15 MCG/2 ML VIAL.NEB NEB SCH (20:33)
[2024-01-30] MEDS: HYDROMORPHONE HCL 1 MG/ML INJ IV ONE (20:57)
[2024-01-31] MEDS: VANCOMYCIN 1.25 GM in NA CHLORIDE 0.9% 250 ML IVPB SCH (01:33)
[2024-01-31] MEDS: LEVOTHYROXINE SOD 0.075 MG TAB PO SCH (06:09)
[2024-01-31 07:07] LABS: Absolute Basophils 0.1 K/uL (0-0.5); Absolute Lymphocytes (CBC) 1.8 K/uL (0.7-4.9); Absolute Monocytes 1.5 K/uL (0.1-1.3); Absolute Neutrophil 5.8 K/uL (1.8-8.0); Basophils % 0.7 % (0-1.3); Eosinophils % 0.4 % (0-4.4); Hematocrit 35.8 % (36.0-45.0); Hemoglobin 12.4 g/dL (12.0-15.0); Lymphocytes % 19.5 % (15.3-44.8); MCH 29.2 pg (27.0-35.0); MCHC 34.5 g/dL (32.0-36.0); MCV 84.5 fL (80-100); Monocytes % 16.1 % (3.3-12.3); Neutrophils % 63.3 % (41.7-73.7); Nucleated Red Blood Cells % 0.1 % (0-0); Platelets 227 thou/uL (152-406); RBC Red Blood Cell Count 4.23 M/uL (3.86-4.86)
[2024-01-31 07:17] LABS: PT Prothrombin Time 12.6 SECONDS (9.4-12.5); Protime INR 1.13
[2024-01-31 07:28] LABS: Albumin 2.8 g/dL (3.4-5.0); Albumin/Globulin Ratio 0.9 (1.1-1.8); Anion Gap 7.5 mEq/L (5.0-15.0); Bilirubin Total 0.8 mg/dL (0.2-1.0); Globulin 3.1 g/dL (2.3-3.5); Magnesium 1.8 mg/dL (1.6-2.4); Potassium 3.5 mEq/L (3.5-5.1); Protein, Total 5.9 g/dL (6.4-8.2); Thyroid Stimulating Hormone 0.451 uIU/mL (0.358-3.740)
[2024-01-31] MEDS: HYDROMORPHONE HCL 1 MG/ML INJ IV PRN (09:17)
--- NOTE | 2024-01-31 09:50 | CON ---
Date of Consultation: 01/30/2024 History Of Present Illness: I have not seen this patient before to my knowledge. She is a 58-year-o ld female who was in her normal state of health when she started feeling some pain related to her lef t elbow. She does not know exactly why this occurred, but it has progressed and it has gotten quite a bit worse, causing pain, redness, and swelling from mid forearm to mid arm. She therefore came to the emergency department and has not yet had x-rays; however, she was seen by me. She denies any ot er areas like this. She does have 2 small skin lesions, most likely consistent with abrasions; howev er, this is not conclusive. There is no active drainage. She does have some swelling of the olecran on bursa. She also does have erythema from the mid forearm to the mid arm. Gentle range of motion o f the elbow was primarily painful at end range. There is no effusion of the elbow. Diagnostic Data: X-rays are pending. Assessment: 58-year-old female, now with probable septic olecranon bursitis; however, this could be consistent with a cellulitis. She will be admitted to the care of the hospitalist with a dressing an d the plan is for IV antibiotics. She will be observed. Most likely this will require operative int ervention with bursal excision, irrigation and debridement, but we will see how she does with IV anti biotics. We have advised that perhaps she be placed n.p.o. after 9 a.m. tomorrow in case she signifi cantly worsens for surgery tomorrow. Often times we do give more than 1 day for antibiotics to have effect; however, we will manage this clinically. /MODL Voice ID: [id number] Report ID: [id number]
[2024-01-31] MEDS: POTASSIUM CL SA 10 MEQ TAB PO SCH (12:16)
[2024-01-31] MEDS: MAGNESIUM SULFATE 1 gm IVPB 1 GM/100 ML BAG IV SCH (12:16)
--- NOTE | 2024-01-31 13:09 | P.PN ---
Subjective Date of Service: 01/31/24 Chief Complaint: Left elbow pain bursitis/cellulitis Subjective: No new changes (will continue abx today, adjust pain medications. Advance diet today, NPO post MN) <Abida Bensonlen - Last Filed: 01/31/24 13:10> Date of Service: 01/31/24 <Veronica Schroeder - Last Filed: 01/31/24 13:35> Review of Systems 10-point ROS is otherwise unremarkable General: As per HPI Musculoskeletal: Other (left elbow pain) Integumentary: As per HPI <Abida Bensonlen - Last Filed: 01/31/24 13:10> Physical Examination - Vital Signs Temperature: 97.6 F Blood Pressure: 117/52 Pulse: 88 Respirations: 16 Pulse Ox (%): 96 - Physical Exam General: Alert, In no apparent distress, Oriented x3 HEENT: Atraumatic, Normocephalic Neck: Supple Respiratory: Normal air movement Cardiovascular: No edema Capillary refill: <2 Seconds Gastrointestinal: Soft and benign Musculoskeletal: Erythema, Tenderness, Warmth, Other (Mildly decreased range of motion left elbow) Integumentary: Skin lesion, Tenderness/swelling, Erythema (Forming abscess at olecranon) Neurological: Normal speech, Normal tone, Normal affect Lymphatics: No axilla or inguinal lymphadenopathy External genitalia: Deferred Rectal: Deferred - Studies Laboratory Data (last 24 hrs) 01/30/24 01/30/24 13:30 13:30 WBC 9.70 Hgb 14.9 Hct 44.6 Plt Count 301 Sodium 135 L Potassium 3.3 L BUN 12 Creatinine 0.70 Glucose 97 Total Bilirubin 1.1 H AST 12 L ALT 19 Alkaline Phosphatase 98 <Abida Bensonlen - Last Filed: 01/31/24 13:10> - Studies Laboratory Data (last 24 hrs) 01/30/24 01/30/24 13:30 13:30 WBC 9.70 Hgb 14.9 Hct 44.6 Plt Count 301 Sodium 135 L Potassium 3.3 L BUN 12 Creatinine 0.70 Glucose 97 Total Bilirubin 1.1 H AST 12 L ALT 19 Alkaline Phosphatase 98 <Veronica Schroeder - Last Filed: 01/31/24 13:35> Assessment And Plan - Plan Leftt elbow cellulitis/abscess 1. Continue IV antibiotics -Vanco and Merrem as patient is allergic to penicillin 2. Continue with local wound care, wound care instructions given 3. Wound care consultation/surgical consultation - Dr. Garrett assessed in ED. Pt was kept NPO this am at 0800 for possible I&D. Dr. Garrett reassessed area, pt to have regular diet 12+ more hours of IV abx and then will be NPO post MN for OR debridement tomorrow. 4. Gentle IV hydration 5. Monitor and trend labs 6. Strict blood sugar monitoring 7. Pain control 8. GI and DVT prophylaxis Time Spent Managing PTS Care (In Minutes): 30 <Abida Benson - Last Filed: 01/31/24 13:10> - Plan Pt seen and examined. I agree with the note by the [employer] HELPER. Pt is getting iv vanc and merrem. Will keep NPO after midnight for possible surgical intervention on left elbow tomorrow. Dr. Garrett is following. <Veronica Schroeder - Last Filed: 01/31/24 13:35>
[2024-01-31] MEDS ORDERED: ARFORMOTEROL TARTRATE 15 MCG/2 ML VIAL.NEB NEB PRN (14:19)
[2024-01-31] MEDS ORDERED: IPRATROPIUM BROM 0.5MG/2.5ML NEB PRN (14:19)
[2024-01-31] MEDS: TRAZODONE 50 MG TABLET PO PRN (21:14)
[2024-02-01 07:05] LABS: Absolute Basophils 0.1 K/uL (0-0.5); Absolute Eosinophils 0.1 K/uL (0-0.5); Absolute Lymphocytes (CBC) 2.1 K/uL (0.7-4.9); Absolute Monocytes 1.3 K/uL (0.1-1.3); Absolute Neutrophil 4.4 K/uL (1.8-8.0); Eosinophils % 1.2 % (0-4.4); Hematocrit 32.6 % (36.0-45.0); Hemoglobin 11.1 g/dL (12.0-15.0); MCH 28.9 pg (27.0-35.0); MCHC 34.2 g/dL (32.0-36.0); MCV 84.6 fL (80-100); MPV 8.9 fL (7.6-11.3); Monocytes % 15.9 % (3.3-12.3); Neutrophils % 55.9 % (41.7-73.7); Nucleated Red Blood Cells % 0.1 % (0-0); Platelets 222 thou/uL (152-406); RBC Red Blood Cell Count 3.85 M/uL (3.86-4.86); Red Cell Distribution Width 12.9 % (12.1-15.2)
[2024-02-01 07:14] LABS: PT Prothrombin Time 12.8 SECONDS (9.4-12.5); Protime INR 1.15
[2024-02-01 07:22] LABS: Albumin 2.5 g/dL (3.4-5.0); Albumin/Globulin Ratio 0.8 (1.1-1.8); Anion Gap 6.6 mEq/L (5.0-15.0); Bilirubin Total 0.6 mg/dL (0.2-1.0); Globulin 3.3 g/dL (2.3-3.5); Potassium 3.6 mEq/L (3.5-5.1); Protein, Total 5.8 g/dL (6.4-8.2)
[2024-02-01] MEDS: dexAMETHasone 10 MG/ML VIAL ONE (08:50)
[2024-02-01] MEDS: EPINEPHRINE 1 MG/ML VIAL ONE (08:50)
[2024-02-01] MEDS: LIDOCAINE 1% MPF 5 ML VIAL ONE (08:50)
[2024-02-01] MEDS: FENTANYL CITR 100 MCG/2 ML ONE (08:50)
[2024-02-01] MEDS: MIDAZOLAM HCL 2 MG/2 ML INJ ONE (08:51)
[2024-02-01] MEDS: Ringers Lactate 1,000 ML IV ONE (10:27)
[2024-02-01] MEDS ORDERED: propofoL 200 MG/20 ML VIAL IV ONE (12:10)
[2024-02-01] MEDS ORDERED: LIDOCAINE 2% MPF 5 ML VIAL ONE (12:10)
--- NOTE | 2024-02-01 12:21 | P.PN ---
Subjective Date of Service: 02/01/24 Chief Complaint: Left elbow pain bursitis/cellulitis Pt is resting comfortably in bed. She is waiting for surgery. Pt is in good spirit. No complaints. Review of Systems General: Unremarkable Eyes: Unremarkable ENT: Unremarkable Respiratory: Unremarkable Cardiovascular: Unremarkable Gastrointestinal: Unremarkable Genitourinary: Unremarkable Musculoskeletal: Other (left elbow cellulitis) Integumentary: Unremarkable Neurological: Unremarkable Lymphatics: Unremarkable Physical Examination - Vital Signs Temperature: 97.8 F Blood Pressure: 112/57 Pulse: 75 Respirations: 16 Pulse Ox (%): 95 - Physical Exam General: Alert, In no apparent distress, Oriented x3 HEENT: Atraumatic, Normocephalic, PERRLA Neck: Supple, 2+ carotid pulse no bruit, JVD not distended Respiratory: Clear to auscultation bilaterally, Normal air movement Cardiovascular: No edema, Normal pulses, Regular rate/rhythm, Normal S1 S2 Capillary refill: <2 Seconds Gastrointestinal: Normal bowel sounds, Soft and benign, Non-distended Musculoskeletal: No clubbing, No swelling, No contractures Integumentary: No rashes, No breakdown, No significant lesion Neurological: Normal gait, Normal speech, Normal strength at 5/5 x4 extr, Normal tone, Sensation intact Lymphatics: No axilla or inguinal lymphadenopathy Assessment And Plan - Plan Left elbow cellulitis: Will continue iv vanc/ cefepime and f/u blood cx. Pt is NPO for the surgery today by Gerry Canada. Hypothyroidism: Synthroid Hypokalemia: K is 3.6<- 3.3. Will replete and monitor. Depression: Continue home med GERD: protonix DVT ppx: SCD Code: full Dispo: Pending hospital course
--- NOTE | 2024-02-01 13:23 | P.BOP ---
Preoperative diagnosis: septic olecranon bursitis, left Postoperative diagnosis: same Primary procedure: olecranon bursal excision with shap irrigation and debridement Estimated blood loss: 20 ccs Specimen: sent Anesthesia: General Complications: None Transferred to: Recovery Room Condition: Good
--- NOTE | 2024-02-01 14:06 | OP ---
Date of Procedure: 02/01/2024 Surgeon: Zander Garrett MD Preoperative Diagnosis: Left septic olecranon bursitis. Postoperative Diagnosis: Left septic olecranon bursitis. Procedures: Left elbow bursal excision with irrigation and sharp debridement including scissors, earl geur, scalpel. Estimated Blood Loss: 20 cc. Complications: There were no complications. Specimens: I did send cultures as well as specimen consistent with the majority of the size tissue. Indications For Operation: Ms. Mills is a 58-year-old female who started having pain and proble ms related to her left elbow. She does not remember reason that began happening. However, it develo ped over the course of approximately a day to become more and more painful including redness, swellin g, and enlargement of the olecranon bursa. She was seen in the emergency department where she was di agnosed with cellulitis, but most likely had involvement of the olecranon bursa. She was admitted to the hospital for intravenous antibiotics, which although were helpful, did not resolve this and the region of olecranon bursa appeared to be becoming more thin, continued to be painful. She retained e rythema. Risks, benefits, and alternatives to olecranon bursectomy and irrigation and debridement we re discussed with the patient. We also discussed that we will most likely leave this open and come b ack for definitive closure in the future. She says she understands things as presented and wishes to proceed. Description Of Procedure: The patient was taken to the operating room and placed in supine position. She was then rolled on in the beach chair position with a cavazos bag. General anesthesia was obtaine d by Anesthesia staff. Following this, her left upper extremity was then prepped and draped in usual sterile fashion for the procedure. A sterile tourniquet was placed on superior left arm and the arm was then elevated, but not exsanguinated. Tourniquet was raised and a planned incision was made óscar ng the course of the proximal ulna to the lateral aspect of the olecranon tip and proceeding up the p osterior aspect of the arm. There was also an area of skin where a near draining sinus was excised. This was taken down carefully through skin only. Meticulous hemostasis being maintained using Bovie electrocautery. This led immediately to area of purulence, which was then cultured and the skin was then from the underlying bursa carefully using sharp dissection, removing the majority of the inflamed tissue. The same technique was used on the medial aspect with great care being taken to avoid any injury to the ulnar nerve. After this, it was then identified at the lateral aspect and t mackenzie bursal tissue was then gently removed where possible from the posterior aspect of the olecranon. This proceeded until near the ulnar nerve and attention was then turned superiorly and inferiorly tamara ving a small amount attached near the ulnar nerve. This was then truncated giving a good cuff of tis ruben over the ulnar nerve. After this was then copiously irrigated with 2 L of sterile saline, the us e of rongeur and curette and scissors were then used to remove any remaining frankly infected or abno rmal tissue. It was again irrigated with additional liters of sterile saline. After this, the press ure was held on the wound for several minutes. After the tourniquet was released, there was some ble eding, which were all oozes from multiple areas. This was controlled where possible using the Bovie. After this, a dampened portion of Kerlix was then placed within the wound and it was then covered w ith ABDs as well as generous soft roll as well as a posterior splint and Andi wrap. The patient was t hen awakened and taken to recovery room in good condition. There were no complications. SE/MODL Voice ID: [id number] Report ID: [id number]
[2024-02-01] MEDS: NA CHLORIDE 0.9% 100 ML ONE (20:28)
[2024-02-02 06:19] LABS: Absolute Lymphocytes (CBC) 1.1 K/uL (0.7-4.9); Absolute Monocytes 0.9 K/uL (0.1-1.3); Absolute Neutrophil 9.2 K/uL (1.8-8.0); Basophils % 0.2 % (0-1.3); Hematocrit 34.4 % (36.0-45.0); Hemoglobin 11.5 g/dL (12.0-15.0); Lymphocytes % 9.6 % (15.3-44.8); MCH 28.2 pg (27.0-35.0); MCHC 33.4 g/dL (32.0-36.0); MCV 84.2 fL (80-100); MPV 9.7 fL (7.6-11.3); Monocytes % 8.4 % (3.3-12.3); Neutrophils % 81.8 % (41.7-73.7); Platelets 259 thou/uL (152-406); RBC Red Blood Cell Count 4.08 M/uL (3.86-4.86); Red Cell Distribution Width 12.6 % (12.1-15.2)
[2024-02-02 06:33] LABS: Protime INR 1.07
[2024-02-02 06:36] LABS: ALT/SGPT 17 U/L (13-56); Albumin 2.7 g/dL (3.4-5.0); Albumin/Globulin Ratio 0.7 (1.1-1.8); Alkaline Phosphatase 88 U/L (45-117); Anion Gap 7.6 mEq/L (5.0-15.0); BUN Blood Urea Nitrogen 9 mg/dL (7-18); Bicarbonate 26 mEq/L (21-32); Bilirubin Total 0.4 mg/dL (0.2-1.0); Globulin 3.7 g/dL (2.3-3.5); Glomerular Filtration Rate 112 ml/min (=/>90); Glucose Level 129 mg/dL (74-106); Potassium 3.6 mEq/L (3.5-5.1); Protein, Total 6.4 g/dL (6.4-8.2); Sodium Level 139 mEq/L (136-145)
[2024-02-02 06:39] LABS: AST/SGOT < 10 U/L (15-37)
--- NOTE | 2024-02-02 12:12 | P.PN ---
Subjective Date of Service: 02/02/24 Chief Complaint: Left elbow pain bursitis/cellulitis Pt is resting comfortably in bed. She had I&D of the left elbow abscess. The left elbow wrapped up. Waiting for further recommendation from Orthopedic surgeon. No complaints. Review of Systems General: Unremarkable Eyes: Unremarkable ENT: Unremarkable Respiratory: Unremarkable Cardiovascular: Unremarkable Gastrointestinal: Unremarkable Genitourinary: Unremarkable Musculoskeletal: Other (left elbow pain) Integumentary: Unremarkable Neurological: Unremarkable Lymphatics: Unremarkable Physical Examination - Vital Signs Temperature: 98.0 F Blood Pressure: 142/60 Pulse: 74 Respirations: 16 Pulse Ox (%): 94 - Physical Exam General: Alert, In no apparent distress, Oriented x3 HEENT: Atraumatic, Normocephalic, PERRLA Neck: Supple, 2+ carotid pulse no bruit Respiratory: Clear to auscultation bilaterally, Normal air movement Cardiovascular: No edema, Normal pulses, Regular rate/rhythm Capillary refill: <2 Seconds Gastrointestinal: Normal bowel sounds, Soft and benign, Non-distended Musculoskeletal: No clubbing, No swelling, No contractures, Other (left elbow is wrapped up.) Integumentary: No rashes, No breakdown, No significant lesion, No tenderness/swelling Neurological: Normal gait, Normal speech, Normal strength at 5/5 x4 extr Lymphatics: No axilla or inguinal lymphadenopathy Assessment And Plan - Plan Left elbow cellulitis: Will continue iv vanc/ cefepime and f/u blood cx. s/p I&D of the left elbow abscess. Waiting for further recommendation from Dr. Garrett. WBC is 11.3 Hypothyroidism: Synthroid Hypokalemia: K is 3.6 <- 3.3. Will replete and monitor. Depression: Continue home med GERD: protonix DVT ppx: SCD Code: full Dispo: Pending hospital course.
[2024-02-02] MEDS: POTASSIUM CL SA 10 MEQ TAB PO SCH (13:17)
[2024-02-03] MEDS ORDERED: propofoL 200 MG/20 ML VIAL IV ONE (06:35)
[2024-02-03] MEDS ORDERED: FENTANYL CITR 100 MCG/2 ML ONE (06:35)
[2024-02-03] MEDS ORDERED: MIDAZOLAM HCL 2 MG/2 ML INJ ONE ×3 (06:35→06:52)
[2024-02-03] MEDS ORDERED: ONDANSETRON 4 MG/2 ML VIAL ONE (06:36)
[2024-02-03] MEDS ORDERED: KETOROLAC 30 MG/ML INJ ONE (06:37)
[2024-02-03] MEDS ORDERED: dexAMETHasone 4 MG/ML VIAL ONE (06:37)
[2024-02-03] MEDS ORDERED: LIDOCAINE 1% MPF 5 ML VIAL ONE (06:41)
--- NOTE | 2024-02-03 08:18 | P.BOP ---
Preoperative diagnosis: status post excision with I&D of septic olecranon bursitis, left Postoperative diagnosis: same Primary procedure: olecranon sharp irrigation and debridement Estimated blood loss: 20 ccs Specimen: sent Anesthesia: General Complications: None Transferred to: Recovery Room Condition: Good
[2024-02-03 08:45] VITALS: O2SAT 100
[2024-02-03 09:21] LABS: Absolute Basophils 0.1 K/uL (0-0.5); Absolute Eosinophils 0.1 K/uL (0-0.5); Absolute Lymphocytes (CBC) 1.6 K/uL (0.7-4.9); Absolute Monocytes 0.5 K/uL (0.1-1.3); Absolute Neutrophil 5.3 K/uL (1.8-8.0); Basophils % 1.2 % (0-1.3); Eosinophils % 1.3 % (0-4.4); Hematocrit 31.4 % (36.0-45.0); Hemoglobin 10.2 g/dL (12.0-15.0); Lymphocytes % 21.4 % (15.3-44.8); MCH 27.8 pg (27.0-35.0); MCHC 32.5 g/dL (32.0-36.0); MCV 85.5 fL (80-100); MPV 8.6 fL (7.6-11.3); Monocytes % 7.1 % (3.3-12.3); Nucleated Red Blood Cells % 0.1 % (0-0); Platelets 244 thou/uL (152-406); RBC Red Blood Cell Count 3.68 M/uL (3.86-4.86); Red Cell Distribution Width 12.8 % (12.1-15.2)
--- NOTE | 2024-02-03 09:27 | OP ---
Date of Procedure: 02/03/2024 Surgeon: Zander Garrett MD Preoperative Diagnosis: Left elbow status post septic olecranon bursal excision and irrigation and s harp debridement. Postoperative Diagnosis: Left elbow status post septic olecranon bursal excision and irrigation and sharp debridement. Procedure: Left elbow second-look irrigation and sharp debridement with closure. Estimated Blood Loss: 20 cc. Complications: There were no complications. Specimens: No pathology specimens sent. Indications For Operation: Ms. Mills is a patient who 2 days ago underwent excisional treatment for septic olecranon bursitis with surrounding abscess formation as well as irrigation and debrideme nt in this area. This was left packed open for 2 days and treated with IV antibiotics on the floor, now returns for second look to ensure there is no further purulent material and probable closure. Ri sks, benefits, and alternatives of procedure have been discussed with the patient. She states she un derstands things as presented and wishes to proceed. Description Of Procedure: The patient was taken to the operating room and placed in supine position. General anesthesia was easily obtained by the Anesthesia staff. She was then rolled right side hung n on a cavazos bag and the left upper extremity was then prepped and draped in usual sterile fashion. A well-padded tourniquet was placed on her superior left arm, however, it was not used throughout the case. After this, approximately 2 L of sterile saline were then used jet lavage to irrigate this and it was then inspected. Any nonviable or non normal-appearing tissue was then excised using combinat ion of scalpel and rongeur. Did have an extremely good bleeding bed. There was found to be no furth er purulent material or sign of abscess formation. It is again irrigated with additional amounts of sterile saline. Following this, observed for bleeding. There was very minimal bleeding and the skin was then closed using a 2-0 nylon. Some of the skin at the tip of the olecranon had to be excised b ecause of poor skin in the previous operation. However, we were able to get closure which was relati vely tensionless. After this, she was placed in a splint, well-padded sterile dressing, soft roll, a nd Andi wrap. Then, a splint was then applied over the Andi wrap and another Andi wrap was applied to h old the splint in place. After this, the patient was awakened and taken to recovery room in good con dition. There were no complications. SE/MODL Voice ID: [id number] Report ID: [id number]
[2024-02-03 09:32] LABS: Anion Gap 8.7 mEq/L (5.0-15.0); Potassium 3.7 mEq/L (3.5-5.1)
[2024-02-03 10:10] VITALS: TEMP 97
--- NOTE | 2024-02-03 11:45 | P.DS ---
Admission Date: 01/30/24 Discharge Date: 02/03/24 Disposition: ROUTINE DISCHARGE Discharge Condition: GOOD Reason for Admission: Left elbow pain bursitis/cellulitis Brief History of Present Illness: Ms. Mills is a 58-year-old female with a past medical history of depression, hypothyroidism, and osteoarthritis. She states a few days ago she went bowling and then tripped and fell to her knees without any contact of her upper extremities. She was seen in the emergency department and discharged home with x-rays negative for fracture. She states in the last 2 days her left elbow became more stiff and she noted at white pustule over the bursa. She woke this morning with pain in her left elbow, increased area of induration/"boil", and swelling and redness down her forearm. She states the bones of her wrist and hand are tender. On evaluation in the emergency department, she has mildly limited range of motion of her left elbow. She appears to have a left olecranon abscess with cellulitis down her left forearm. Dr. Garrett was asked to evaluate and the patient will be kept n.p.o. after 8 AM in case of worsening overnight. Labs: CBC unremarkable Sodium 135, potassium 3.3, lactic acid 1.3, TSH pending Chest x-ray for preop clearance with no acute findings EKG pending Hospital Course: Pt is a 58 yo female with past medical history of depression, hypothyroidism, and osteoarthritis who presented with left elbow swelling, pain, erythema and drainage. On evaluation in the emergency department, she had mildly limited range of motion of her left elbow. Pt was admitted for left septic olecranon bursitis. We gave iv vanc and cefepime, prn pain med, and consulted Dr. Garrett who took pt to the OR for I&D on 02/02/24. The orthopedic surgeon took her to the OR on 02/03/24 for irrigation and debridement of olecranon. We repleted potassium and continued home meds for other home meds. She was advised to keep the left elbow dry and follow up with Dr. Garrett in clinic. Pt was in NAD prior to discharge. Vital Signs/Physical Exam: Temp Pulse Resp BP Pulse Ox 97.0 F 68 18 173/90 H 96 02/03/24 09:00 02/03/24 09:00 02/03/24 09:00 02/03/24 09:00 02/03/24 09:00 Laboratory Data at Discharge: WBC 7.70 thou/uL (4.3-10.9) 02/03/24 09:00 Hgb 10.2 g/dL (12.0-15.0) L 02/03/24 09:00 Hct 31.4 % (36.0-45.0) L 02/03/24 09:00 Plt Count 244 thou/uL (152-406) 02/03/24 09:00 PT 12.0 SECONDS (9.4-12.5) 02/02/24 04:51 INR 1.07 02/02/24 04:51 Sodium 142 mEq/L (136-145) 02/03/24 09:00 Potassium 3.7 mEq/L (3.5-5.1) 02/03/24 09:00 BUN 9 mg/dL (7-18) 02/03/24 09:00 Creatinine 0.51 mg/dL (0.55-1.02) L 02/03/24 09:00 Glucose 91 mg/dL (74-106) 02/03/24 09:00 Magnesium 2.0 mg/dL (1.6-2.4) 02/02/24 04:51 Total Bilirubin 0.4 mg/dL (0.2-1.0) 02/02/24 04:51 AST < 10 U/L (15-37) L 02/02/24 04:51 ALT 17 U/L (13-56) 02/02/24 04:51 Alkaline Phosphatase 88 U/L (45-117) 02/02/24 04:51 Triglycerides 149 mg/dL (<150) 01/31/24 05:38 Cholesterol 116 mg/dL (<200) 01/31/24 05:38 HDL Cholesterol 59 mg/dL (40-60) 01/31/24 05:38 Cholesterol/HDL Ratio 1.97 01/31/24 05:38 Home Medications: Atorvastatin Calcium 20 mg PO DAILY 10/11/23 Bupropion HCl [Budeprion Xl] 300 mg PO DAILY 10/11/23 Ergocalciferol (Vitamin D2) [Vitamin D2] 1,250 mcg PO Q7D 10/11/23 Gabapentin 300 mg PO TID 10/11/23 Inotersen Sodium [Tegsedi] 284 mg SQ Q7D 10/11/23 LORazepam [Ativan*] 0.5 mg PO PRN PRN 10/11/23 Levothyroxine Sodium 100 mcg PO DAILY 10/11/23 Omeprazole [Prilosec] 40 mg PO DAILY 10/11/23 Trazodone [Desyrel*] 50 mg PO BEDTIME 10/11/23 Phentermine HCl 37.5 mg PO DAILY 01/31/24 Semaglutide [Ozempic] 0.25 mg SQ Q7D 01/31/24 Ciprofloxacin HCl [Cipro 500 MG Tablet] 500 mg PO BID 10 Days #20 tab 02/03/24 Doxycycline Hyclate 100 mg PO BID 10 Days #20 tab 02/03/24 Hydrocodone 5/APAP 325 [Motley 5/325] 1 tab PO Q6H PRN 7 Days #30 tab 02/03/24 New Medications: Ciprofloxacin HCl [Cipro 500 MG Tablet] 500 mg PO BID 10 Days #20 tab Doxycycline Hyclate 100 mg PO BID 10 Days #20 tab Hydrocodone 5/APAP 325 [Motley 5/325] 1 tab PO Q6H PRN 7 Days #30 tab PRN Reason: Pain Physician Discharge Instructions: Continue ad armando activity as tolerated. Take Ciprofloxacin 500mg po BID and doxycycline 100mg po BID for 10 more days. Keep the left elbow dry. Follow up with Dr. Garrett in Clinic. Diet: AHA Activity: Ad armando Followup: NONE,NONE [Primary Care Provider] -
[2024-02-03 12:47] VITALS: BP 148/77
== END 2024-02-03 12:28 | disposition home or self-care (01) | DRG 464 ==
LOC: ER 12:25 → ERHOLD 15:50 → 4TH 16:36
PROVIDERS: ADMIT Hospitalist; ATTEND Hospitalist
PROC: 0JBH0ZZ Excision of Left Lower Arm Subcutaneous Tissue and Fascia, Open Approach (ICD-10-PCS; principal; 2024-02-01 11:30)
PROC: 0JBH0ZZ Excision of Left Lower Arm Subcutaneous Tissue and Fascia, Open Approach (ICD-10-PCS; 2024-02-03)
DX: M70.22 Olecranon bursitis, left elbow (principal); L02.818 Cutaneous abscess of other sites; L03.114 Cellulitis of left upper limb; E87.6 Hypokalemia; F32.A Depression, unspecified; E78.5 Hyperlipidemia, unspecified; E03.9 Hypothyroidism, unspecified; M19.90 Unspecified osteoarthritis, unspecified site; K21.9 Gastro-esophageal reflux disease without esophagitis; Z23 Encounter for immunization; Z88.0 Allergy status to penicillin; Z88.5 Allergy status to narcotic agent; Z88.1 Allergy status to other antibiotic agents; Z98.84 Bariatric surgery status; Z90.49 Acquired absence of other specified parts of digestive tract; Z79.890 Hormone replacement therapy; Z79.899 Other long term (current) drug therapy; Z87.891 Personal history of nicotine dependence; W01.0XXA Fall on same level from slipping, tripping and stumbling without subsequent striking against object, initial encounter; Y93.54 Activity, bowling; Y92.9 Unspecified place or not applicable; Y99.9 Unspecified external cause status
CPT/HCPCS: 36415; 71045; 80048; 80053; 80061; 80202; 83605; 83735; 84443; 85025; 85610; 87040; 87070; 87075; 87077; 87186; 87205; 88304; 94640; 96365; 96366; 96375; 99284; J0171; J0692; J1100; J1170; J2001; J2250; J2405; J2470; J2704; J3010; J3475; J7030; J7050; J7120; J7605; J7644

== ENCOUNTER 2024-07-22 11:17 | Inpatient (IN) | payer BC ==
[2024-07-22 12:00] LABS: Absolute Basophils 0.1 K/uL (0-0.5); Absolute Lymphocytes (CBC) 2.7 K/uL (0.7-4.9); Absolute Monocytes 1.2 K/uL (0.1-1.3); Absolute Neutrophil 7.9 K/uL (1.8-8.0); Basophils % 0.9 % (0-1.3); Eosinophils % 0.4 % (0-4.4); Hematocrit 40.6 % (36.0-45.0); Hemoglobin 14.2 g/dL (12.0-15.0); Lymphocytes % 22.8 % (15.3-44.8); MCH 30.1 pg (27.0-35.0); MCHC 34.9 g/dL (32.0-36.0); MCV 86.2 fL (80-100); MPV 8.4 fL (7.6-11.3); Monocytes % 10.1 % (3.3-12.3); Neutrophils % 65.8 % (41.7-73.7); Platelets 321 thou/uL (152-406); RBC Red Blood Cell Count 4.71 M/uL (3.86-4.86); Red Cell Distribution Width 12.5 % (12.1-15.2)
[2024-07-22 12:06] LABS: PT Prothrombin Time 11.2 SECONDS (10.0-13.0); Protime INR 0.98
--- NOTE | 2024-07-22 12:11 | RAD REPORT ---
EXAMINATION: ONE VIEW CHEST XR CLINICAL INDICATION: CHEST PAIN TECHNIQUE: Frontal chest projection is submitted. Examination is limited by patient positioning and t echnique. COMPARISON: 01/30/2024 FINDINGS: The lungs are well inflated and clear. The heart is upper limit of normal in size. No displaced fract ures identified. IMPRESSION: No acute intrathoracic abnormalities.
[2024-07-22] MEDS ORDERED: FENTANYL CITR 100 MCG/2 ML ONE (12:13)
[2024-07-22 12:21] LABS: Albumin 3.7 g/dL (3.4-5.0); Albumin/Globulin Ratio 1.3 (1.1-1.8); Anion Gap 8.5 mEq/L (5.0-15.0); Bilirubin Direct 0.5 mg/dL (0-0.2); Bilirubin Indirect, Calculated 0.7 mg/dL (0.2-0.8); Bilirubin Total 1.2 mg/dL (0.2-1.0); Globulin 2.9 g/dL (2.3-3.5); Magnesium 2.2 mg/dL (1.6-2.4); Potassium 3.5 mEq/L (3.5-5.1); Protein, Total 6.6 g/dL (6.4-8.2); Troponin High Sensitivity 4.8 pg/mL (<58.9)
[2024-07-22] MEDS ORDERED: ONDANSETRON 4 MG/2 ML VIAL ONE ×2 (12:43→17:52)
[2024-07-22] MEDS ORDERED: MORPHINE 4 MG/ML SYR ONE (12:43)
--- NOTE | 2024-07-22 13:02 | RAD REPORT ---
EXAMINATION: CTA CHEST PE CLINICAL INDICATION: Female, 58 years old. CHEST PAIN TECHNIQUE: This examination was performed according to an angiographic protocol with 3D post-processi ng. This involves 3D reconstructions, MIPs, volume rendered images and/or shaded surface rendering. One or more of the following dose reduction techniques were used: Automated exposure control, adjustm ent of the mA and/or kV according to patient size, and/or iterative reconstruction. Unless otherwise specified, incidental findings do not require dedicated imaging follow-up. [id number]. COMPARISON: Same day chest radiograph. FINDINGS: LOWER NECK: Visualized thyroid gland and soft tissues are normal. LUNGS AND AIRWAYS: Airways are clear. No evidence of airspace or interstitial process.No suspicious a nd/or stable pulmonary nodules. PLEURA: No pleural effusion. No pneumothorax. Hemidiaphragms are normally positioned. MEDIASTINUM AND LYMPH NODES: No mediastinal mass or fluid collection. Normal size mediastinal, hilar, and axillary lymph nodes. Mild distal esophageal thickening. THORACIC AORTA: No thoracic aortic aneurysm. PULMONARY ARTERIES: Caliber is within normal limits. No pulmonary emboli identified. HEART: Normal heart size. Multivessel coronary artery diseaseNo significant pericardial effusion. OSSEOUS STRUCTURES AND CHEST WALL: No fracture or suspicious osseous lesions. UPPER ABDOMEN: No acute abnormalities.Surgical changes at the stomach. IMPRESSION: No evidence of pulmonary emboli to the subsegmental level. Lungs are clear.
--- NOTE | 2024-07-22 13:35 | ER ---
Nurse's Notes [facility] Name: Maria Isabel Mills Age: 58 yrs Sex: Female : 1965 Arrival Date: 07/22/2024 Time: 11:17 Bed 20 Private MD: Diagnosis: Chest pain, unspecified;Dizziness and giddiness Presentation: 07/22 11:33 Coronavirus screen: Client denies travel out of the [place] in the last 14 days. At this ll1 time, the client does not indicate any symptoms associated with coronavirus-19. Ebola Screen: Patient denies travel to an Ebola-affected area in the 21 days before illness onset. Initial Sepsis Screen: Does the patient meet any 2 criteria? No. Patient's initial sepsis screen is negative. Does the patient have a suspected source of infection? No. Patient's initial sepsis screen is negative. Risk Assessment: Do you want to hurt yourself or someone else? Patient reports no desire to harm self or others. Onset of symptoms. 11:33 Method Of Arrival: EMS ll1 11:33 Acuity: TOMASZ 3 ll1 11:43 Chief complaint: EMS states: Called EMS for dizziness, high BP, nausea and ph palpitations, BP for EMS 180s systolic, BGL 91, fluids and Zofran given, 18G to RAC. Triage Assessment: 11:45 General: Appears in no apparent distress. uncomfortable, Behavior is cooperative, ph appropriate for age. Pain: Denies pain. Neuro: Level of Consciousness is awake, alert, obeys commands, Oriented to person, place, time, situation, Reports dizziness. Historical: - Allergies: 11:32 Augmentin; ll1 11:32 tramadol; ll1 11:32 Ultram; ll1 - PMHx: 11:32 Depression; GERD; Hypothyroidism; ll1 - PSHx: 11:32 section; Cholecystectomy; gastric sleeve; Operative procedure on knee; ll1 - Immunization history:: Adult Immunizations up to date. - Social history:: Smoking status: Patient/guardian denies using tobacco. Screenin:05 [facility] ED Fall Risk Assessment (Adult) History of falling in the last 3 months, ll1 including since admission No falls in past 3 months (0 pts) Confusion or Disorientation No (0 pts) Intoxicated or Sedated No (0 pts) Impaired Gait Yes (1 pt) Mobility Assist Device Used Yes (1 pt) Altered Elimination No (0 pt) Score/Fall Risk Level 0 - 2 = Low Risk Maintained a safe environment, Hourly rounding (assess needs \T\ fall precautionary measures) done. Abuse screen: Denies threats or abuse. Nutritional screening: No deficits noted. Tuberculosis screening: No symptoms or risk factors identified. Assessment: 13:00 Reassessment: No changes from previously documented assessment. Patient and/or family ll1 updated on plan of care and expected duration. Pain level reassessed. Patient is alert, oriented x 3, equal unlabored respirations, skin warm/dry/pink. 14:00 Reassessment: No changes from previously documented assessment. Patient and/or family ll1 updated on plan of care and expected duration. Pain level reassessed. 15:00 Reassessment: No changes from previously documented assessment. Patient and/or family ll1 updated on plan of care and expected duration. Pain level reassessed. 16:00 Reassessment: No changes from previously documented assessment. Patient and/or family ll1 updated on plan of care and expected duration. Pain level reassessed. Patient is alert, oriented x 3, equal unlabored respirations, skin warm/dry/pink. 17:00 Reassessment: No changes from previously documented assessment. Patient and/or family ll1 updated on plan of care and expected duration. Pain level reassessed. 18:00 Reassessment: No changes from previously documented assessment. Patient and/or family ll1 updated on plan of care and expected duration. Pain level reassessed. Vital Signs: 11:33 Weight 65.77 kg; Height 5 ft. 6 in. ; Pain 0/10; ll1 11:44 BP 168 / 86; Pulse 66; Resp 18; Temp 97.8; Pulse Ox 100% on R/A; ph 12:00 BP 158 / 76; Pulse 61; Resp 17; Pulse Ox 100% on R/A; ll1 13:00 BP 128 / 90; Pulse 76; Pulse Ox 99% ; ll1 14:00 BP 152 / 72; Pulse 64; Resp 18; Pulse Ox 98% ; ll1 15:15 BP 146 / 86; Pulse 66; Resp 17; Pulse Ox 98% ; ll1 16:00 BP 126 / 105; Pulse 66; Resp 18; Pulse Ox 98% on R/A; ll1 17:01 BP 126 / 86; Pulse 70; Resp 18; Pulse Ox 98% on R/A; ll1 11:33 Body Mass Index 23.40 (65.77 kg, 167.64 cm) ll1 11:33 Pain Scale: Adult ll1 ED Course: 11:19 Patient arrived in ED. bd 11:19 Enid Menjivar PA-C is PHCP. sb4 11:19 Antoni Patel DO is Attending Physician. sb4 11:32 Ja Gimenez, RN is Primary Nurse. ll1 11:32 Arm band placed on Patient placed in an exam room, on a stretcher. ll1 11:34 Triage completed. ll1 11:59 XRAY Chest (1 view) In Process Unspecified. EDMS 12:00 Provided Education on: ER procedures and process. ll1 12:48 Chest For PE Angio CT In Process Unspecified. EDMS 13:35 Baldemar Romo PA is Hospitalizing Provider. sb4 15:27 Troponin High Sensitivity Sent. ll1 18:06 Patient has correct armband on for positive identification. Bed in low position. Call ll1 light in reach. Client placed on continuous cardiac and pulse oximetry monitoring. NIBP monitoring applied. Administered Medications: 12:20 Drug: fentaNYL (PF) IVP 25 mcg IVP once {Note: pain 7/10-leg RASS 0.} Route: IVP; Site: ll1 right antecubital; 15:28 Follow up: Response: No adverse reaction; Pain is decreased ll1 12:53 Drug: morphine IVP or IV 4 mg IVP once over 4 mins Route: IVP; Infused Over: 4 mins; me1 Site: right antecubital; 15:28 Follow up: Response: No adverse reaction ll1 12:53 Drug: Ondansetron IVP 4 mg IVP once; over 2 minutes Route: IVP; Site: right antecubital;me1 15:28 Follow up: Response: No adverse reaction ll1 14:05 Drug: Aspirin PO Chewable Tablet 324 mg PO once; 81 mg tablets x 4 Route: PO; ph 15:28 Follow up: Response: No adverse reaction ll1 Medication: 18:05 VIS not applicable for this client. ll1 Outcome: 13:35 Decision to Hospitalize by Provider. sb4 18:08 Patient left the ED. ll1 Signatures: Dispatcher [employer] Massiel Jeffrey Patricia, RN Ja Agrawal ph, RN RN 1 Enid Menjivar PA-C PA-C sb4 Jenni Alonzo RN RN me1
--- NOTE | 2024-07-22 13:35 | EDPHYS ---
Physician Documentation [facility] Name: Maria Isable Mills Age: 58 yrs Sex: Female : 1965 Arrival Date: 07/22/2024 Time: 11:17 Bed 20 Private MD: ED Physician Antoni Patel HPI: 07/22 12:06 This 58 yrs old Female presents to ER via EMS with complaints of chest pressure, sob, sb4 dizziness. 12:25 Patient states that she was sitting at her computer doing work this morning when she sb4 suddenly started experiencing chest pressure, shortness of breath, and dizziness, and like she was going to faint. Her checked her blood pressure and stated that it was 200/100. She denies any history of hypertension, states that her blood pressure typically runs 110s/60s. She states that she had an episode like this a few months back while walking her dog but it was not as severe. She denies any cardiac history. Does have a history of high cholesterol and GERD and hypothyroidism. States that she did take p.o. Valium in case it was anxiety, but that did not improve her symptoms. Historical: - Allergies: 11:32 Augmentin; ll1 11:32 tramadol; ll1 11:32 Ultram; ll1 - PMHx: 11:32 Depression; GERD; Hypothyroidism; ll1 - PSHx: 11:32 section; Cholecystectomy; gastric sleeve; Operative procedure on knee; ll1 - Immunization history:: Adult Immunizations up to date. - Social history:: Smoking status: Patient/guardian denies using tobacco. ROS: 12:25 Constitutional: Negative for fever, chills, and weight loss, sb4 12:25 Cardiovascular: Positive for chest pain, 12:25 Respiratory: Positive for shortness of breath, 12:25 Abdomen/GI: Positive for nausea, 12:25 Neuro: Positive for dizziness, near syncope, 12:25 All other systems are negative, Exam: 12:27 Head/Face: Normocephalic, atraumatic. Eyes: Extra-ocular motions intact. Periorbital sb4 areas with no swelling, redness, or edema. ENT: Mucous membranes moist. Cardiovascular: Regular rate and rhythm with a normal S1 and S2. Respiratory: No increased work of breathing, no retractions or nasal flaring. Abdomen/GI: Soft, non-tender, no distension. Skin: Warm, dry with normal turgor. Normal color with no rashes, no lesions, and no evidence of cellulitis. Neuro: Awake and alert, GCS 15, oriented to person, place, time, and situation. Motor strength 5/5 in all extremities. Sensory grossly intact. 12:27 Constitutional: The patient appears alert, awake, anxious, uncomfortable, 12:27 Respiratory: Breath sounds: are clear throughout, Vital Signs: 11:33 Weight 65.77 kg; Height 5 ft. 6 in. ; Pain 0/10; ll1 11:44 BP 168 / 86; Pulse 66; Resp 18; Temp 97.8; Pulse Ox 100% on R/A; ph 12:00 BP 158 / 76; Pulse 61; Resp 17; Pulse Ox 100% on R/A; ll1 13:00 BP 128 / 90; Pulse 76; Pulse Ox 99% ; ll1 14:00 BP 152 / 72; Pulse 64; Resp 18; Pulse Ox 98% ; ll1 15:15 BP 146 / 86; Pulse 66; Resp 17; Pulse Ox 98% ; ll1 16:00 BP 126 / 105; Pulse 66; Resp 18; Pulse Ox 98% on R/A; ll1 17:01 BP 126 / 86; Pulse 70; Resp 18; Pulse Ox 98% on R/A; ll1 11:33 Body Mass Index 23.40 (65.77 kg, 167.64 cm) ll1 11:33 Pain Scale: Adult ll1 MDM: 11:19 Medical Screening Exam initiated sb4 13:06 Scoring Tools HEART Score: History: ECG: Age: Risk Factors: 1 or 2 risk factors (1), sb4 Troponin: Total Score = 4. Counseling: I had a detailed discussion with the patient and/or guardian regarding the historical points, exam findings, and any diagnostic results supporting the discharge/admit diagnosis, the presence of at least one elevated blood pressure reading (>120/80) during this emergency department visit, lab results, radiology results. 13:49 The patient was given aspirin in the Emergency Department. Data reviewed: vital signs, sb4 nurses notes, EMS record, lab test result(s), EKG, radiologic studies, and as a result, I will discharge patient. 07/22 11:35 Order name: Basic Metabolic Panel; Complete Time: 12:21 sb4 07/22 11:35 Order name: CBC with Diff; Complete Time: 12:09 sb4 07/22 11:35 Order name: LFT's; Complete Time: 12:21 sb4 07/22 11:35 Order name: Magnesium; Complete Time: 12:21 sb4 07/22 11:35 Order name: NT PRO-BNP; Complete Time: 12:21 sb4 07/22 11:35 Order name: PT-INR; Complete Time: 12:09 sb4 07/22 11:35 Order name: Troponin HS; Complete Time: 12:21 sb4 07/22 15:13 Order name: Thyroid Stimulating Hormone EDMS 07/22 15:13 Order name: Troponin High Sensitivity; Complete Time: 15:52 EDMS 07/22 15:13 Order name: CBC with Automated Diff EDMS 07/22 15:13 Order name: CBC with Automated Diff EDMS 07/22 15:13 Order name: Comprehensive Metabolic Panel EDMS 07/22 15:13 Order name: Comprehensive Metabolic Panel EDMS 07/22 15:13 Order name: Lipid Profile EDMS 07/22 15:13 Order name: Lipid Profile EDMS 07/22 11:35 Order name: XRAY Chest (1 view); Complete Time: 12:12 sb4 07/22 12:22 Order name: Chest For PE Angio CT; Complete Time: 13:04 sb4 07/22 15:13 Order name: Echo with Doppler EDMS 07/22 15:48 Order name: CT; Complete Time: 15:50 EDMS 07/22 11:35 Order name: EKG; Complete Time: 11:36 sb4 07/22 11:35 Order name: Cardiac monitoring; Complete Time: 11:56 sb4 07/22 11:35 Order name: EKG - Nurse/Tech; Complete Time: 11:56 sb4 07/22 11:35 Order name: IV Saline Lock; Complete Time: 11:56 sb4 07/22 11:35 Order name: Labs collected and sent; Complete Time: 11:56 sb4 07/22 11:35 Order name: O2 Per Protocol; Complete Time: 11:56 sb4 07/22 11:35 Order name: O2 Sat Monitoring; Complete Time: 11:56 sb4 EC:06 Rate is 62 beats/min. Rhythm is regular, Normal Sinus Rhythm. Left axis deviation sb4 noted. MN interval is normal at 162 msec. QRS interval is normal at 96 msec. QT interval is normal at 392 msec. No Q waves. T waves are Normal. No ST changes noted. Clinical impression: No evidence of ischemia. Interpreted by me. Reviewed by me. Administered Medications: 12:20 Drug: fentaNYL (PF) IVP 25 mcg IVP once {Note: pain 7/10-leg RASS 0.} Route: IVP; Site: ll1 right antecubital; 15:28 Follow up: Response: No adverse reaction; Pain is decreased ll1 12:53 Drug: morphine IVP or IV 4 mg IVP once over 4 mins Route: IVP; Infused Over: 4 mins; me1 Site: right antecubital; 15:28 Follow up: Response: No adverse reaction ll1 12:53 Drug: Ondansetron IVP 4 mg IVP once; over 2 minutes Route: IVP; Site: right antecubital;[facility] 15:28 Follow up: Response: No adverse reaction ll1 14:05 Drug: Aspirin PO Chewable Tablet 324 mg PO once; 81 mg tablets x 4 Route: PO; ph 15:28 Follow up: Response: No adverse reaction ll1 Disposition: 18:03 I was immediately available on-site in the Emergency Department for consultation in the ms3 care of the patient. Disposition Summary: 07/22/24 13:35 Hospitalization Ordered Notes: Hospitalization Status: Observation sb4 Provider: Baldemar Romo sb4 [facility] sb4 Condition: Fair sb4 Problem: new sb4 Symptoms: are unchanged sb4 Bed/Room Type: Standard sb4 Room Assignment: 201(07/22/24 16:41) bd Diagnosis - Chest pain, unspecified sb4 - Dizziness and giddiness sb4 Forms: - Medication Reconciliation Form sb4 - SBAR form sb4 - Leadership Thank You Letter sb4 Signatures: Dispatcher [employer] Massiel Jeffrey Patricia RN RN ph Ja Gimenez RN RN 1 Antoni Patel DO DO ms3 Enid Menjivar PA-C PA-C sb4 eJnni Alonzo RN RN me1 Corrections: (The following items were deleted from the chart) 12:22 12:22 Chest For PE Angio+CT.RAD.BRZ ordered. EDMS EDMS 16:41 13:35 sb4 bd
[2024-07-22] MEDS ORDERED: ASPIRIN 81 MG CHEWABLE TABLET ONE (14:01)
[2024-07-22] MEDS ORDERED: ACETAMINOPHEN 500 MG TAB PO PRN (15:08)
--- NOTE | 2024-07-22 15:25 | P.HP ---
Certification for Inpatient With expected LOS: >2 Midnights Patient will require the following post-hospital care: None Practitioner: I am a practitioner with admitting privileges, knowledge of patient current condition, hospital course, and medical plan of care. Services: Services provided to patient in accordance with Admission requirements found in Title 42 Section 412.3 of the Code of Federal Regulations Patient History Date of Service: 07/22/24 Reason for admission: chest pain History of Present Illness: 58-year-old patient presented with palpitations and chest pain, on further questioning of the patient, she is complaining of on and off palpitations for the last few days, today she had epigastric pain radiating to the left breast so she presented to the emergency room, it was brief episode of pain today, she is also complaining of nausea and dizziness along with these episodes, she had near syncopal episode today, she had 1 syncopal spell 1 month back, due to recurrent symptoms she present to the emergency room, due to her risk factors we were asked to admit her for further work up. She lost some weight after gastric sleeve surgery but otherwise no other unintentional weight loss. c/o mild headache on and off. No double vision or blurry vision. No cough or sputum production. No shortness of breath. No abdominal pain other than epigastric paiin this morning. No constipation or diarrhea. No blood in the urine or stool. No fever. No lower extremity edema. No joint pains. Review of systems: All other 10 point review of systems are negative other than as mentioned above. Allergies and medications: Reviewed, as per [employer] [facility] EMR. Past medical history: Hypertension, off medications after gastric bypass. GERD on omeprazole, depression on Wellbutrin, hypothyroidism on levothyroxine, hyperlipidemia on statin. Past surgical history: Gastric sleeve surgery, left knee replacement, , cholecystectomy, carpal tunnel surgery, skin removal on the tummy after gastric bypass, breast reduction. Social history: No smoking or drugs. Occasional alcohol. Family history: No family history of [place]. Grandmother had a history of CVA Physical examination: Vital signs: Reviewed, as per EMR. General appearance: Alert and comfortable HEENT: Extraocular movements intact, oral mucosa moist. CVS: Normal S1-S2, systolic heart murmur present. 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, no obvious focal deficits Musculoskeletal: No obvious joint swelling or tenderness Allergies amoxicillin [From Augmentin] Allergy (Verified 10/11/23 08:49) Itching clavulanic acid [From Augmentin] Allergy (Verified 10/11/23 08:49) Itching tramadol Allergy (Verified 10/11/23 08:49) Anaphylaxis Home Medications: Atorvastatin Calcium 20 mg PO DAILY 10/11/23 Bupropion HCl [Budeprion Xl] 300 mg PO DAILY 10/11/23 Ergocalciferol (Vitamin D2) [Vitamin D2] 1,250 mcg PO Q7D 10/11/23 Gabapentin 300 mg PO TID 10/11/23 Inotersen Sodium [Tegsedi] 284 mg SQ Q7D 10/11/23 LORazepam [Ativan*] 0.5 mg PO PRN PRN 10/11/23 Levothyroxine Sodium 100 mcg PO DAILY 10/11/23 Omeprazole [Prilosec] 40 mg PO DAILY 10/11/23 Trazodone [Desyrel*] 50 mg PO BEDTIME 10/11/23 Phentermine HCl 37.5 mg PO DAILY 01/31/24 Semaglutide [Ozempic] 0.25 mg SQ Q7D 01/31/24 Ciprofloxacin HCl [Cipro 500 MG Tablet] 500 mg PO BID 10 Days #20 tab 02/03/24 Doxycycline Hyclate 100 mg PO BID 10 Days #20 tab 02/03/24 Hydrocodone 5/APAP 325 [Loa 5/325] 1 tab PO Q6H PRN 7 Days #30 tab 02/03/24 - Past Medical/Surgical History Diabetic: No -: Osteoarthritis -: Hypertension -: Hyperlipidemia -: Hypothyroidism -: Depression -: GERD -: -: Multiple knee surgeries -: Cholecystectomy -: Gastric sleeve Psychosocial/ Personal History: Quit smoking 1 year ago in September. Drinks socially on the weekends - Social History Alcohol use: Yes CD- Drugs: No Caffeine use: Yes Physical Examination - Studies Laboratory Data (last 24 hrs) 07/22/24 07/22/24 07/22/24 11:40 11:40 11:40 WBC 11.90 H Hgb 14.2 Hct 40.6 Plt Count 321 PT 11.2 INR 0.98 Sodium 141 Potassium 3.5 BUN 15 Creatinine 0.73 Glucose 95 Magnesium 2.2 Total Bilirubin 1.2 H AST 29 ALT 34 Alkaline Phosphatase 95 Assessment and Plan - Plan Assessment and plan: 1. Palpitations, epigastric pain, near syncope: CT chest negative for any acute problem, troponin negative, EKG no acute changes. Will check TSH, get echocardiogram, she may need a stress test as well, cardiology consult requested. 2. GERD: Continue PPI 3. Hypertension, not on any medications. 4. Hyperlipidemia: Continue statin 5. Depression: Continue home medications 6. Hypothyroidism: Continue home medications 7. Esophageal thickening on CT scan: Increase PPI, need follow-up with gastroenterology as an outpatient. DVT Prophylaxis: Lovenox CODE STATUS she would like to be full code. I did discuss all the above mentioned plan with the patient, she understands and agrees with the plan. I Discussed with family at bedside with patient's permission. - Advance Directives Does patient have a Living Will: No Does patient have a Durable POA for Healthcare: No - Code Status/Comfort Care Code Status Assessed: Yes Code Status: Full Code
--- NOTE | 2024-07-22 15:48 | RAD REPORT ---
EXAMINATION: Ct Stroke Brain Wo Cont CLINICAL INDICATION: Female, 58 years old.headache TECHNIQUE: Axial CT images from the skull base to the vertex without intravenous contrast. Coronal an d sagittal reformatted images were created from the data set. One or more of the following dose reduction techniques were used: Automated exposure control, adjustment of the mA and/or kV according to patient size, and/or iterative reconstruction. Unless otherwise specified, incidental findings do not require dedicated imaging follow-up. [id number]. COMPARISON: No prior exam. FINDINGS: INTRACRANIAL: Note that there is still some residual contrast within the venous system from CT earlie r in the day. No acute intracranial hemorrhage. No hydrocephalus. No mass effect or midline shift. Mild chronic small vessel ischemic changes. VASCULATURE: No visualized abnormalities in the arteries or dural venous sinuses. SCALP/SKULL: No calvarial fracture identified. No acute soft tissue abnormality. SINUSES: The visualized paranasal sinuses are mostly clear. No significant mastoid fluid. IMPRESSION: No acute intracranial abnormality.
[2024-07-22] MEDS: PANTOPRAZOLE 40MG TABLET PO SCH (16:30)
[2024-07-22] MEDS: ONDANSETRON 4 MG/2 ML VIAL IV PRN (18:04)
[2024-07-22 18:17] VITALS: O2SAT 98
[2024-07-22 18:19] VITALS: BMI 23.3
[2024-07-22] MEDS: FLU (Fluarix Triv) TS24-25(6MOS UP)/PF 45 MCG/0.5 ML Syringe IM ONE (18:45)
[2024-07-22] MEDS: GABAPENTIN 100 MG CAP PO SCH (20:42)
[2024-07-22] MEDS: ENOXAPARIN 40 MG/0.4 ML SQ SCH (20:43)
[2024-07-22] MEDS ORDERED: LORAZEPAM 0.5 MG TABLET PO PRN (21:42)
[2024-07-23 06:34] LABS: Absolute Basophils 0.1 K/uL (0-0.5); Absolute Lymphocytes (CBC) 1.8 K/uL (0.7-4.9); Absolute Monocytes 0.7 K/uL (0.1-1.3); Absolute Neutrophil 3.7 K/uL (1.8-8.0); Basophils % 1.1 % (0-1.3); Eosinophils % 0.5 % (0-4.4); Hemoglobin 13.3 g/dL (12.0-15.0); Lymphocytes % 28.8 % (15.3-44.8); MCH 29.2 pg (27.0-35.0); MCHC 33.2 g/dL (32.0-36.0); MCV 88.2 fL (80-100); MPV 8.3 fL (7.6-11.3); Monocytes % 11.2 % (3.3-12.3); Neutrophils % 58.4 % (41.7-73.7); Nucleated Red Blood Cells % 0.1 % (0-0); Platelets 265 thou/uL (152-406); RBC Red Blood Cell Count 4.54 M/uL (3.86-4.86); Red Cell Distribution Width 12.6 % (12.1-15.2)
[2024-07-23 07:03] LABS: Albumin 2.9 g/dL (3.4-5.0); Anion Gap 9.9 mEq/L (5.0-15.0); Bilirubin Total 0.8 mg/dL (0.2-1.0); Globulin 2.9 g/dL (2.3-3.5); Potassium 3.9 mEq/L (3.5-5.1); Protein, Total 5.8 g/dL (6.4-8.2); Thyroid Stimulating Hormone 0.644 uIU/mL (0.358-3.740)
[2024-07-23] MEDS: LEVOTHYROXINE SOD 0.1 MG TAB PO SCH (07:30)
[2024-07-23] MEDS ORDERED: HOME MED 1 EA UNK (Omeprazole [Prilosec] 40 MG Capsule.Dr) PO SCH (09:00)
[2024-07-23] MEDS ORDERED: buPROPion HCL 100 MG TAB PO SCH (09:00)
[2024-07-23] MEDS: GABAPENTIN 300 MG CAP PO SCH (10:03)
[2024-07-23] MEDS: ATORVASTATIN 20 MG TAB PO SCH (10:03)
[2024-07-23] MEDS: BUPROPION HCL XL 150 MG TAB PO SCH (10:04)
--- NOTE | 2024-07-23 10:12 | P.CNS ---
Date of Consult: 07/23/24 Chief Complaint: chest pain History of Present Illness: Patient presented with chest pain, palpitations, presumed syncope for the second time, patient denies any other cardiac symptoms, pain is always associated with flutter sensation. Allergies amoxicillin [From Augmentin] Allergy (Verified 10/11/23 08:49) Itching clavulanic acid [From Augmentin] Allergy (Verified 10/11/23 08:49) Itching tramadol Allergy (Verified 10/11/23 08:49) Anaphylaxis Home medications list reviewed: Yes Home Medications: Atorvastatin Calcium 20 mg PO DAILY 10/11/23 Bupropion HCl [Budeprion Xl] 300 mg PO DAILY 10/11/23 Gabapentin 300 mg PO TID 10/11/23 LORazepam [Ativan*] 0.5 mg PO PRN PRN 10/11/23 Levothyroxine Sodium 100 mcg PO DAILY 10/11/23 Omeprazole [Prilosec] 40 mg PO DAILY 10/11/23 Trazodone [Desyrel*] 100 mg PO BEDTIME 10/11/23 - Past Medical/Surgical History Diabetic: No -: Osteoarthritis -: Hypertension -: Hyperlipidemia -: Hypothyroidism -: Depression -: GERD -: -: Multiple knee surgeries -: Cholecystectomy -: Gastric sleeve Psychosocial/ Personal History: Quit smoking 1 year ago in September. Drinks socially on the weekends - Social History Alcohol use: Yes CD- Drugs: No Caffeine use: No Place of Residence: Home Review of Systems 10-point ROS is otherwise unremarkable Physical Examination Temp Pulse Resp BP Pulse Ox 98.3 F 55 16 120/73 96 07/23/24 08:00 07/23/24 08:00 07/23/24 08:00 07/23/24 08:00 07/23/24 08:00 General: Alert, In no apparent distress HEENT: Atraumatic, PERRLA, Mucous membr. moist/pink, EOMI, Sclerae nonicteric Neck: Supple, 2+ carotid pulse no bruit, No LAD, Without JVD or thyroid abnormality Respiratory: Clear to auscultation bilaterally, Normal air movement Cardiovascular: Regular rate/rhythm, Normal S1 S2 Gastrointestinal: Normal bowel sounds, No tenderness Musculoskeletal: No tenderness Integumentary: No rashes Neurological: Normal gait, Normal speech, Normal tone, Normal affect Lymphatics: No axilla or inguinal lymphadenopathy Laboratory Data (last 24 hrs) 07/22/24 07/22/24 07/22/24 11:40 11:40 11:40 WBC 11.90 H Hgb 14.2 Hct 40.6 Plt Count 321 PT 11.2 INR 0.98 Sodium 141 Potassium 3.5 BUN 15 Creatinine 0.73 Glucose 95 Magnesium 2.2 Total Bilirubin 1.2 H AST 29 ALT 34 Alkaline Phosphatase 95 - Problems (1) Chest pain Current Visit: Yes Status: Acute Plan: Patient was suppose to be having stress test but she can not finish test due tp panic attack, and she was asking for heavy sedation, she speicifically said, if you going to give me 2 mg of valium is not going to work and i need something stronger, it is just uncommon for patient to know dosage of narcotics, anyway patient chest pain is non specific with normal EKG and negative troponin, no need for stress test outpatient follow up with cardiology. (2) Palpitation Current Visit: Yes Status: Acute Plan: Tele shows sinus rhythm, outpatient event monitor and echo.
--- NOTE | 2024-07-23 12:14 | EKG ---
Test Date: 2024-07-22 Test Time: 12:00:36 Radiation Therapy Technologist: IFEANYI MEASUREMENT RESULTS: Intervals: Rate: 62 ME: 162 QRSD: 96 QT: 392 QTc: 397 [place]: P: 77 ME: 162 QRS: -41 T: 32 INTERPRETIVE STATEMENTS: Normal sinus rhythm Left axis deviation Septal infarct, age undetermined Abnormal ECG Compared to ECG 10/11/2023 09:21:46 Left-axis deviation now present Myocardial infarct finding now present Electronically Signed On 07-23-24 12:11:17 CONTINUING EDUCATION DIRECTOR by Kayden Gallardo
--- NOTE | 2024-07-23 15:44 | P.DS ---
Admission Date: 07/22/24 Discharge Date: 07/23/24 Disposition: DC HOME/HOME HEALTH CARE Discharge Condition: FAIR Reason for Admission: chest pain Brief History of Present Illness: 1. Palpitations, epigastric pain, near syncope: CT chest negative for any acute problem, troponin negative, EKG no acute changes. -Echo report normal per Dr. Gallardo, report not availalbe for me -TSH normal - refused stress test due to panic attack -cardiology recommended o/p f/u 2. GERD: Continue PPI, need GI f/u 3. Hypertension, not on any medications. 4. Hyperlipidemia: Continue statin 5. Depression: Continue home medications -Anxiety and panic episodes-advised psychiatry follow up 6. Hypothyroidism: Continue home medications 7. Esophageal thickening on CT scan: continue PPI, need follow-up with gastroenterology as an outpatient. 58-year-old patient presented with epigastric pain, palpitations and near syncope, cardiology was consulted, she had an echocardiogram ordered, I do not have the full echo report available but as per Dr. Gallardo echo looks good, she had a stress test ordered but she refused the stress test due to panic attack, when I see the patient this morning she seems to be doing reasonably well, I discussed with her about outpatient psychiatric follow-up, she also need to follow-up with GI as well for follow-up on esophageal thickening, Dr. Gallardo will follow her as an outpatient and consider stress test if she is interested. Subjective: No chest pain or shortness of breath today other than panic episode at stress test. No nausea or vomiting. No abdominal pain. No obvious bleeding. Looks comfortable in the bed. Objective: General appearance: Alert and comfortable CVS: Normal S1 and S2 Lungs: Clear to auscultation bilaterally Abdomen: Soft, bowel sounds present, no tenderness Extremities: No lower extremity edema Vital Signs/Physical Exam: Temp Pulse Resp BP Pulse Ox 98.5 F 58 18 128/85 99 07/23/24 12:00 07/23/24 12:00 07/23/24 12:00 07/23/24 12:00 07/23/24 12:00 Laboratory Data at Discharge: WBC 6.40 thou/uL (4.3-10.9) 07/23/24 06:01 Hgb 13.3 g/dL (12.0-15.0) 07/23/24 06:01 Hct 40.0 % (36.0-45.0) 07/23/24 06:01 Plt Count 265 thou/uL (152-406) 07/23/24 06:01 PT 11.2 SECONDS (10.0-13.0) 07/22/24 11:40 INR 0.98 07/22/24 11:40 Sodium 141 mEq/L (136-145) 07/23/24 06:01 Potassium 3.9 mEq/L (3.5-5.1) 07/23/24 06:01 BUN 10 mg/dL (7-18) 07/23/24 06:01 Creatinine 0.57 mg/dL (0.55-1.02) 07/23/24 06:01 Glucose 103 mg/dL (74-106) 07/23/24 06:01 Magnesium 2.2 mg/dL (1.6-2.4) 07/22/24 11:40 Total Bilirubin 0.8 mg/dL (0.2-1.0) 07/23/24 06:01 AST 40 U/L (15-37) H 07/23/24 06:01 ALT 45 U/L (13-56) 07/23/24 06:01 Alkaline Phosphatase 91 U/L (45-117) 07/23/24 06:01 Triglycerides 125 mg/dL (<150) 07/23/24 06:01 Cholesterol 151 mg/dL (<200) 07/23/24 06:01 HDL Cholesterol 81 mg/dL (40-60) H 07/23/24 06:01 Cholesterol/HDL Ratio 1.86 07/23/24 06:01 Imagings Data: CT chest IMPRESSION: No acute intracranial abnormality. CT head IMPRESSION: No evidence of pulmonary emboli to the subsegmental level. Lungs are clear. Home Medications: Atorvastatin Calcium 20 mg PO DAILY 10/11/23 Bupropion HCl [Budeprion Xl] 300 mg PO DAILY 10/11/23 Gabapentin 300 mg PO TID 10/11/23 LORazepam [Ativan*] 0.5 mg PO PRN PRN 10/11/23 Levothyroxine Sodium 100 mcg PO DAILY 10/11/23 Omeprazole [Prilosec] 40 mg PO DAILY 10/11/23 Trazodone [Desyrel*] 100 mg PO BEDTIME 10/11/23 Diet: Regular Activity: Ad armando Followup: Kayden Gallardo MD [ACTIVE - CAN ADMIT] - 1 Week (f/u in 1 week) Jose Patel MD [Primary Care Provider] - 1 Week (f/u with PCP in 1 week with CBC and CMP. PCP to set up GI and psychiatry follow ups) Time spent managing pt's care (in minutes): 40
[2024-07-23 16:19] VITALS: BP 132/79; TEMP 98.1
[2024-07-23] MEDS ORDERED: TRAZODONE 50 MG TABLET PO SCH (21:00)
--- NOTE | 2024-07-24 06:33 | ECHO ---
HEIGHT: 5 ft 6 in WEIGHT: 145 lb 0 oz DATE OF STUDY: 07/23/[address]: Baldemar Romo 2-DIMENSIONAL: YES M.MODE: YES DOPPLER: YES COLOR FLOW: YES TDS: PORTABLE: YES DEFINITY: BUBBLE STUDY: DIAGNOSIS: CHEST PAIN, HEART MURMUR CARDIAC HISTORY: CATHERIZATION: SURGERY: PROSTHETIC VALVE: PACEMAKER: MEASUREMENTS (cm) DIASTOLIC (NORMALS) SYSTOLIC (NORMALS) IVSd 0.8 (0.6-1.2) LA Diam 2.9 (1.9-4.0) LVEF 60-65% LVIDd 4.5 (3.5-5.7) LVIDs 2.7 (2.0-3.5) %FS 39% LVPWd 1.0 (0.6-1.2) Ao Diam 2.8 (2.0-3.7) 2 DIMENSIONAL ASSESSMENT: RIGHT ATRIUM: NORMAL LEFT ATRIUM: NORMAL RIGHT VENTRICLE: NORMAL LEFT VENTRICLE: NORMAL TRICUSPID VALVE: NORMAL MITRAL VALVE: NORMAL PULMONIC VALVE: NORMAL AORTIC VALVE: NORMAL PERICARDIAL EFFUSION: NONE AORTIC ROOT: NORMAL LEFT VENTRICULAR WALL MOTION: NORMAL DOPPLER/COLOR FLOW: NORMAL COMMENTS: 1. NORMAL LEFT VENTRICULAR SYSTOLIC FUNCTION, EJECTION FRACTION 60-65%, NORMAL WALL MOTION 2. NORMAL DIASTOLIC FUNCTION TECHNOLOGIST: ZONIA LOFTON
== END 2024-07-23 18:22 | disposition home health service (06) | DRG 312 ==
LOC: ER 11:17 → ERHOLD 15:08 → 2ND 17:30
PROVIDERS: ADMIT Hospitalist; ATTEND Hospitalist
DX: R55 Syncope and collapse (principal); I10 Essential (primary) hypertension; E03.9 Hypothyroidism, unspecified; F41.9 Anxiety disorder, unspecified; F32.A Depression, unspecified; E78.00 Pure hypercholesterolemia, unspecified; K21.9 Gastro-esophageal reflux disease without esophagitis; F41.0 Panic disorder [episodic paroxysmal anxiety]; R07.9 Chest pain, unspecified; Z88.5 Allergy status to narcotic agent; Z88.8 Allergy status to other drugs, medicaments and biological substances; Z98.84 Bariatric surgery status; Z90.49 Acquired absence of other specified parts of digestive tract; Z79.890 Hormone replacement therapy; Z96.652 Presence of left artificial knee joint; Z87.891 Personal history of nicotine dependence
CPT/HCPCS: 36415; 70450; 71045; 71275; 80048; 80053; 80061; 80076; 83735; 83880; 84443; 84484; 85025; 85610; 93005; 93306; 96374; 96375; 99284; J1650; J2405; J3010; Q9967

== ENCOUNTER 2024-08-20 15:11 | Observation (INO) | payer BC ==
[2024-08-20 15:43] LABS: Absolute Basophils 0.1 K/uL (0-0.5); Absolute Eosinophils 0.1 K/uL (0-0.5); Absolute Lymphocytes (CBC) 3.2 K/uL (0.7-4.9); Absolute Monocytes 0.8 K/uL (0.1-1.3); Absolute Neutrophil 3.4 K/uL (1.8-8.0); Basophils % 1.9 % (0-1.3); Eosinophils % 0.8 % (0-4.4); Hematocrit 43.1 % (36.0-45.0); Hemoglobin 14.6 g/dL (12.0-15.0); Lymphocytes % 41.7 % (15.3-44.8); MCH 29.8 pg (27.0-35.0); MCV 87.7 fL (80-100); MPV 7.9 fL (7.6-11.3); Monocytes % 10.8 % (3.3-12.3); Neutrophils % 44.8 % (41.7-73.7); Platelets 320 thou/uL (152-406); RBC Red Blood Cell Count 4.91 M/uL (3.86-4.86); Red Cell Distribution Width 13.3 % (12.1-15.2)
--- NOTE | 2024-08-20 16:02 | RAD REPORT ---
EXAM: Chest Single View HISTORY: 58 years Female CHEST PAIN COMPARISON: 07/22/2024 FINDINGS: LUNGS/PLEURA: The lungs are clear. No pleural effusions or pneumothorax. No pulmonary edema. CARDIAC/MEDIASTINUM: The cardiac silhouette is within normal limits. UPPER ABDOMEN: No significant abnormality. BONES: No acute abnormality. LINES/TUBES/OTHER: N/A IMPRESSION: No evidence of acute cardiopulmonary disease.
[2024-08-20 19:06] LABS: Anion Gap 6.4 mEq/L (5.0-15.0); Potassium 3.4 mEq/L (3.5-5.1); Troponin High Sensitivity 3.2 pg/mL (<58.9)
[2024-08-20] MEDS ORDERED: MORPHINE 4 MG/ML SYR ONE (19:28)
[2024-08-20] MEDS ORDERED: ONDANSETRON 4 MG/2 ML VIAL ONE (19:28)
--- NOTE | 2024-08-20 19:29 | ER ---
Nurse's Notes [facility] Name: Maria Isabel Mills Age: 58 yrs Sex: Female : 1965 Arrival Date: 08/20/2024 Time: 15:11 Bed 20 Private MD: Diagnosis: Chest pain, unspecified Presentation: 08/20 15:44 Chief complaint: Patient states: Left sided chest pain that radiates to neck and jaw cm10 onset 1.5 hrs ago. Pt reports nausea and having a similar episode one month ago. Coronavirus screen: Client denies travel out of the [place] in the last 14 days. Ebola Screen: Patient denies travel to an Ebola-affected area in the 21 days before illness onset. Initial Sepsis Screen: Does the patient meet any 2 criteria? No. Patient's initial sepsis screen is negative. Does the patient have a suspected source of infection? No. Patient's initial sepsis screen is negative. Risk Assessment: Do you want to hurt yourself or someone else? Patient reports no desire to harm self or others. Onset of symptoms was August 20, 2024. 15:44 Method Of Arrival: Wheelchair cm10 15:44 Acuity: TOMASZ 2 cm10 Triage Assessment: 15:46 General: Appears in no apparent distress. uncomfortable, Behavior is calm, cooperative, cm10 appropriate for age. Pain: Complains of pain in chest Pain radiates to left jaw and neck Pain currently is 9 out of 10 on a pain scale. Neuro: No deficits noted. Level of Consciousness is awake, alert, obeys commands, Oriented to person, place, time, situation, Appropriate for age. Respiratory: No deficits noted. Airway is patent Respiratory effort is even, unlabored, Respiratory pattern is regular, symmetrical. Historical: - Allergies: 15:46 Augmentin; cm10 15:46 tramadol; cm10 15:46 Ultram; cm10 - PMHx: 15:46 GERD; Depression; Hypothyroidism; Hypercholesterolemia; cm10 - PSHx: 15:46 section; Cholecystectomy; gastric sleeve; Operative procedure on knee; cm10 - Immunization history:: Adult Immunizations up to date, . - Infectious Disease History:: Denies. - Social history:: Smoking status: Patient reports the use of cigarette tobacco products, denies chronic smoking, but will smoke occasionally. Screenin:36 [facility] ED Fall Risk Assessment (Adult) History of falling in the last 3 months, ld1 including since admission No falls in past 3 months (0 pts) Confusion or Disorientation No (0 pts) Intoxicated or Sedated No (0 pts) Impaired Gait No (0 pts) Mobility Assist Device Used No (0 pt) Altered Elimination No (0 pt) Score/Fall Risk Level 0 - 2 = Low Risk. Abuse screen: Denies threats or abuse. Denies injuries from another. Nutritional screening: No deficits noted. Tuberculosis screening: No symptoms or risk factors identified. Assessment: 18:36 General: Appears in no apparent distress. comfortable, Behavior is calm, cooperative, ld1 appropriate for age. Pain: Complains of pain in chest and neck and left jaw Pain does not radiate. Pain currently is 5 out of 10 on a pain scale. at worst was 9 out of 10 on a pain scale. Quality of pain is described as throbbing, pulsating, Is intermittent. Neuro: Level of Consciousness is awake, alert, obeys commands, Oriented to person, place, time, situation. Cardiovascular: Capillary refill < 3 seconds Patient's skin is warm and dry. Rhythm is sinus rhythm. Respiratory: Airway is patent Respiratory effort is even, unlabored. GI: Abdomen is round non-distended, Reports nausea. : No signs and/or symptoms were reported regarding the genitourinary system. EENT: No signs and/or symptoms were reported regarding the EENT system. Derm: No signs and/or symptoms reported regarding the dermatologic system. Musculoskeletal: No signs and/or symptoms reported regarding the musculoskeletal system. 19:30 General: Appears in no apparent distress. comfortable, Behavior is calm, cooperative, bm8 appropriate for age. Pain: Complains of pain in chest Pain currently is 7 out of 10 on a pain scale. Quality of pain is described as throbbing. Pain: Pain began gradually. Neuro: Level of Consciousness is awake, alert, obeys commands, Oriented to person, place, time, situation, Appropriate for age. Cardiovascular: Reports chest pain, Heart tones S1 S2 present Capillary refill < 3 seconds in bilateral fingers Patient's skin is warm and dry. Rhythm is sinus rhythm. Respiratory: Airway is patent Respiratory effort is even, unlabored, Respiratory pattern is regular, symmetrical, Breath sounds are clear bilaterally. GI: Abdomen is round non-distended, Patient currently denies nausea. : No signs and/or symptoms were reported regarding the genitourinary system. EENT: No signs and/or symptoms were reported regarding the EENT system. Derm: No signs and/or symptoms reported regarding the dermatologic system. Musculoskeletal: No signs and/or symptoms reported regarding the musculoskeletal system. 20:46 Reassessment: Patient appears in no apparent distress at this time. Patient and/or bm8 family updated on plan of care and expected duration. Pain level reassessed. Patient is alert, oriented x 3, equal unlabored respirations, skin warm/dry/pink. Patient denies pain at this time. Patient states feeling better. Patient states symptoms have improved. Vital Signs: 15:44 BP 148 / 100; Pulse 66; Resp 15; Temp 99.1; Pulse Ox 96% ; Weight 66.68 kg; Height 5 cm10 ft. 6 in. ; Pain 9/10; 18:36 BP 153 / 75; Pulse 65; Resp 18; Pulse Ox 100% on R/A; Pain 5/10; ld1 19:30 BP 167 / 84; Pulse 67; Resp 18; Temp 98.7; Pulse Ox 99% ; Pain 7/10; bm8 20:46 BP 156 / 98; Pulse 62; Resp 18; Temp 98.7; Pulse Ox 100% ; Pain 0/10; bm8 15:44 Body Mass Index 23.73 (66.68 kg, 167.64 cm) cm10 15:44 Pain Scale: Adult cm10 18:36 Pain Scale: Adult ld1 19:30 Pain Scale: Adult bm8 20:46 Pain Scale: Adult bm8 Alma Coma Score: 19:30 Eye Response: spontaneous(4). Motor Response: obeys commands(6). Verbal Response: bm8 oriented(5). Total: 15. 20:46 Eye Response: spontaneous(4). Motor Response: obeys commands(6). Verbal Response: bm8 oriented(5). Total: 15. ED Course: 15:11 Patient arrived in ED. im 15:35 Missed attempt(s): 20 gauge in left forearm. Bleeding controlled, band aid applied, bc6 catheter tip intact. 15:39 CBC with Diff Sent. bc6 15:39 Troponin HS Sent. bc6 15:40 Missed attempt(s): 20 gauge in right antecubital area. Bleeding controlled, band aid bc6 applied, catheter tip intact. 15:40 Initial lab(s) drawn, by me, sent to lab. bc6 15:42 [facility]C [facility] kb 15:42 Oscar Kendrick MD is Attending Physician. kb 15:46 Triage completed. cm10 15:46 Arm band placed on right wrist. Patient placed in waiting room. cm10 15:47 EKG done, by ED staff, reviewed by Oscar Kendrick MD. cm10 15:55 XRAY Chest (1 view) In Process Unspecified. EDMS 18:22 nAna Patel, IVAN is Primary Nurse. ld1 18:36 No provider procedures requiring assistance completed. Inserted saline lock: 22 gauge ld1 in right antecubital area, using aseptic technique. Blood collected. Flushed with 10 mL NS. Patient maintains SpO2 saturation greater than 95% on room air. 18:36 Patient has correct armband on for positive identification. Placed in gown. Bed in low ld1 position. Call light in reach. Side rails up X2. nurse monitoring on. Pulse ox on. NIBP on. Door closed. Noise minimized. Warm blanket given. 18:38 NT PRO-BNP Sent. ld1 19:28 Amelia Coyne MD is Hospitalizing Provider. kb 19:30 IV is patent, with fluids infusing freely, with good blood return, Flushed right bm8 antecubital with 5 ml normal saline. Patient maintains SpO2 saturation greater than 95% on room air. 19:30 Client placed on continuous cardiac and pulse oximetry monitoring. NIBP monitoring bm8 applied. nurse monitoring on. Pulse ox on. NIBP on. Door closed. Noise minimized. Warm blanket given. Pillow given. Verbal reassurance given. Head of bed elevated. 20:46 Patient admitted, IV remains in place. bm8 20:46 Provided Education on: need for admission. bm8 Administered Medications: 19:33 Drug: Aspirin PO Chewable Tablet 324 mg PO once; 81 mg tablets x 4 Route: PO; bm8 20:48 Follow up: Response: No adverse reaction bm8 19:33 Drug: morphine IVP or IV 4 mg IVP once over 4 mins Route: IVP; Infused Over: 4 mins; bm8 Site: right antecubital; 20:48 Follow up: Response: No adverse reaction bm8 19:33 Drug: Ondansetron IVP 4 mg IVP once; over 2 minutes Route: IVP; Site: right antecubital;bm8 20:47 Follow up: Response: No adverse reaction bm8 Medication: 18:36 VIS not applicable for this client. ld1 Outcome: 19:28 Decision to Hospitalize by Provider. kb 21:47 Admitted to ER Hold. Please see [facility] for further documentation. bm8 21:47 Condition: stable 21:47 Instructed on the need for admit, Demonstrated understanding of instructions, follow-up care, 08/21 17:09 Patient left the ED. ll1 Signatures: Dispatcher [employer] EDMS Roma Burks, BATHHOUSE KEEPER-C BATHHOUSE KEEPER-Ja Matt RN RN ll1 Anna Patel RN RN ld1 Kimberley Duckworth Itzel im Martinez, Clarissa RN RN cm10 Adrián Donaldson RN RN bm8
--- NOTE | 2024-08-20 19:29 | EDPHYS ---
Physician Documentation [facility] Name: Maria Isabel Mills Age: 58 yrs Sex: Female : 1965 Arrival Date: 08/20/2024 Time: 15:11 Bed 20 Private MD: ED Physician Oscar Kendrick HPI: 08/20 15:42 This 58 yrs old Female presents to ER via Unassigned with complaints of Chest Pain, kb Nausea, Arm Pain, Jaw Pain. 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 States the pain radiates to neck, shoulder and jaw. Reports associated shortness of breath and nausea. States she was admitted about a month ago for similar symptoms and the edger machine operator wanted to do a stress test, but she couldn't tolerate it due to being claustrophobic. . Historical: - Allergies: 15:46 Augmentin; cm10 15:46 tramadol; cm10 15:46 Ultram; cm10 - PMHx: 15:46 GERD; Depression; Hypothyroidism; Hypercholesterolemia; cm10 - PSHx: 15:46 section; Cholecystectomy; gastric sleeve; Operative procedure on knee; cm10 - Immunization history:: Adult Immunizations up to date, . - Infectious Disease History:: Denies. - Social history:: Smoking status: Patient reports the use of cigarette tobacco products, denies chronic smoking, but will smoke occasionally. ROS: 19:15 Constitutional: As per HPI kb Exam: 15:54 ECG was reviewed by the Attending Physician. kb 19:15 Constitutional: This is a well developed, well nourished patient who is awake, alert, kb and in no acute distress. Head/Face: Normocephalic, atraumatic. ENT: Moist Mucous membranes Cardiovascular: Regular rate Respiratory: Respirations even and unlabored. No increased work of breathing. Talking in full sentences Abdomen/GI: Soft, non-tender. No distention Skin: Warm, dry with normal turgor. Normal color. MS/ Extremity: Pulses equal, no cyanosis. Neurovascular intact. Full, normal range of motion. Neuro: Awake and alert, GCS 15, oriented to person, place, time, and situation. Vital Signs: 15:44 BP 148 / 100; Pulse 66; Resp 15; Temp 99.1; Pulse Ox 96% ; Weight 66.68 kg; Height 5 cm10 ft. 6 in. ; Pain 9/10; 18:36 BP 153 / 75; Pulse 65; Resp 18; Pulse Ox 100% on R/A; Pain 5/10; ld1 19:30 BP 167 / 84; Pulse 67; Resp 18; Temp 98.7; Pulse Ox 99% ; Pain 7/10; bm8 20:46 BP 156 / 98; Pulse 62; Resp 18; Temp 98.7; Pulse Ox 100% ; Pain 0/10; bm8 15:44 Body Mass Index 23.73 (66.68 kg, 167.64 cm) cm10 15:44 Pain Scale: Adult cm10 18:36 Pain Scale: Adult ld1 19:30 Pain Scale: Adult bm8 20:46 Pain Scale: Adult bm8 Parviz Coma Score: 19:30 Eye Response: spontaneous(4). Motor Response: obeys commands(6). Verbal Response: bm8 oriented(5). Total: 15. 20:46 Eye Response: spontaneous(4). Motor Response: obeys commands(6). Verbal Response: bm8 oriented(5). Total: 15. MDM: 15:42 Medical Screening Exam initiated kb 19:25 Differential diagnosis: acute IA, arrhythmia. Data reviewed: vital signs, nurses notes. kb Consideration of Admission/Observation Patient was admitted/placed on observation. Escalation of care including admission/observation considered. Management of patient was discussed with the following: Hospitalist: Dr Coyne accepts pt for admission. Counseling: I had a detailed discussion with the patient and/or guardian regarding the historical points, exam findings, and any diagnostic results supporting the discharge/admit diagnosis, lab results, radiology results, the need for further work-up and treatment in the hospital. 19:27 Scoring Tools HEART Score: Total Score = 4. kb 19:28 ED course: Discussed admission vs discharge with patient. Pt states she has an appt kb with a edger machine operator, but they weren't able to get her in until September. States she knows something is going on with her body and is concerned about going home with these symptoms. . 08/20 15:28 Order name: Basic Metabolic Panel; Complete Time: 19:12 bc6 08/20 15:28 Order name: CBC with Diff; Complete Time: 15:58 bc6 08/20 15:28 Order name: Troponin HS; Complete Time: 19:12 bc6 08/20 15:54 Order name: NT PRO-BNP; Complete Time: 19:12 EDNY 08/20 21:37 Order name: Basic Metabolic Panel EDMS 08/20 21:37 Order name: CBC with Automated Diff EDMS 08/20 21:37 Order name: Lipid Profile EDMS 08/20 21:37 Order name: Lipid Profile EDMS 08/20 21:37 Order name: Troponin High Sensitivity EDMS 08/20 21:37 Order name: Troponin High Sensitivity EDMS 08/20 21:37 Order name: Troponin High Sensitivity EDMS 08/20 21:37 Order name: Troponin High Sensitivity EDMS 08/20 21:37 Order name: Troponin High Sensitivity EDMS 08/21 06:02 Order name: Troponin High Sensitivity EDMS 08/20 15:28 Order name: XRAY Chest (1 view); Complete Time: 16:05 6 08/20 21:37 Order name: Echo with Doppler EDNY 08/21 14:35 Order name: NM EDNY 08/20 21:37 Order name: CONS Physician Consult EDNY 08/20 15:28 Order name: Cardiac monitoring; Complete Time: 18:23 6 08/20 15:28 Order name: EKG - Nurse/Tech; Complete Time: 15:28 6 08/20 15:28 Order name: IV Saline Lock; Complete Time: 18:23 6 08/20 15:28 Order name: Labs collected and sent; Complete Time: 15:28 6 08/20 15:28 Order name: O2 Per Protocol; Complete Time: 18:22 6 08/20 15:28 Order name: O2 Sat Monitoring; Complete Time: 18:23 6 08/20 15:51 Order name: Labs - recollect needed: recollect green top; Complete Time: 18:38 bd EC:54 Rate is 64 beats/min. Rhythm is regular. QRS [place] is Normal. MA interval is normal at kb 164 msec. QRS interval is normal at 98 msec. QT interval is normal at 402 msec. Administered Medications: 19:33 Drug: Aspirin PO Chewable Tablet 324 mg PO once; 81 mg tablets x 4 Route: PO; bm8 20:48 Follow up: Response: No adverse reaction bm8 19:33 Drug: morphine IVP or IV 4 mg IVP once over 4 mins Route: IVP; Infused Over: 4 mins; bm8 Site: right antecubital; 20:48 Follow up: Response: No adverse reaction bm8 19:33 Drug: Ondansetron IVP 4 mg IVP once; over 2 minutes Route: IVP; Site: right antecubital;bm8 20:47 Follow up: Response: No adverse reaction bm8 Disposition Summary: 08/20/24 19:28 Hospitalization Ordered Notes: Hospitalization Status: Observation kb Provider: Amelia Coyne Condition: Stable kb Problem: new kb Symptoms: are unchanged kb Bed/Room Type: Standard kb Location: Telemetry/MedSurg (observation)(08/21/24 15:14) bd Room Assignment: [facility](08/21/24 15:14) bd Diagnosis - Chest pain, unspecified kb Forms: - Medication Reconciliation Form kb - SBAR form kb - Leadership Thank You Letter kb Signatures: Dispatcher [employer] EDMS Roma Burks, HOUSEKEEPING/LAUNDRY SUPERVISOR-C HOUSEKEEPING/LAUNDRY SUPERVISOR-Ckb Massiel Gongora bd Fang Astudillo, RN RN kb3 Leslie Ernandez rv1 Kimberley Duckworth bc6 Erika Saab, RN RN cm10 Adrián Donaldson, RN RN bm8 Corrections: (The following items were deleted from the chart) 15:29 15:29 BASIC METABOLIC PANEL+C.LAB.BRZ ordered. EDMS EDMS 15:29 15:29 CBC+H.LAB.BRZ ordered. EDMS EDMS 15:29 15:29 Troponin High Sensitivity+C.LAB.BRZ ordered. EDMS EDMS 15:29 15:29 Chest Single View+RAD.RAD.BRZ ordered. EDMS EDMS 15:54 15:45 PROBNP+C.LAB.BRZ ordered. 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 States the pain radiates to neck, shoulder and jaw. . kb 21:17 19:28 Telemetry/MedSurg (observation) kb rv1 21:17 19:28 kb rv1 04/02 15:14 04 21:17 [facility] ER HOLD rv1 kb3 08/21 15:14 04 21:17 ERHOLD- rv1 kb3 08/21 15:14 15:14 Telemetry/MedSurg (observation) kb3 bd 15:14 15:14 231 kb3 bd
[2024-08-20] MEDS ORDERED: ASPIRIN 81 MG CHEWABLE TABLET ONE (19:40)
[2024-08-20] MEDS ORDERED: ACETAMINOPHEN 500 MG TAB PO PRN (21:31)
[2024-08-20] MEDS ORDERED: NITROGLYCERIN 0.4 MG/TAB SL PRN (21:31)
[2024-08-20 22:25] VITALS: BMI 23.7
[2024-08-20] MEDS ORDERED: TRAZODONE 50 MG TABLET ONE (22:56)
[2024-08-20] MEDS ORDERED: HEPARIN 5000 UNIT/ML 1 ML VIAL ONE (22:59)
[2024-08-20] MEDS ORDERED: ALPRAZOLAM 0.25 MG TABLET ONE (22:59)
[2024-08-20] MEDS: HEPARIN 5000 UNIT/ML 1 ML VIAL SQ SCH (23:18)
[2024-08-20] MEDS: TRAZODONE 50 MG TABLET PO SCH (23:19)
[2024-08-20] MEDS: ALPRAZOLAM 0.25 MG TABLET PO PRN (23:19)
[2024-08-20 23:21] LABS: Troponin High Sensitivity 5.1 pg/mL (<58.9)
[2024-08-21] MEDS ORDERED: MORPHINE 2 MG/ML SYR ONE ×3 (04:11→14:47)
[2024-08-21] MEDS: MORPHINE 4 MG/ML SYR IV PRN (04:13)
--- NOTE | 2024-08-21 05:09 | P.HP ---
Patient History Date of Service: 08/21/24 Reason for admission: Chest pain History of Present Illness: 58-year-old female with a past medical history of hypertension, GERD, hypothyroidism presenting with chest pain that has been ongoing for the last month and a half. She was seen in the emergency room last month. Her hospital workup at that time recommended a stress test. She was unable to do the tress test due to being claustrophobic. She states now she is willing to do the stress test with some anxiety medication. She denies any chest pain with exertion. Associated symptoms include dizziness, blurry vision, dizziness. She smoked for 40 years about a half a pack per day. She denies any fevers and chills Allergies amoxicillin [From Augmentin] Allergy (Verified 10/11/23 08:49) Itching clavulanic acid [From Augmentin] Allergy (Verified 10/11/23 08:49) Itching tramadol Allergy (Verified 10/11/23 08:49) Anaphylaxis Home Medications: Atorvastatin Calcium 20 mg PO DAILY 10/11/23 Bupropion HCl [Budeprion Xl] 300 mg PO DAILY 10/11/23 Gabapentin 300 mg PO TID 10/11/23 LORazepam [Ativan*] 0.5 mg PO PRN PRN 10/11/23 Levothyroxine Sodium 100 mcg PO DAILY 10/11/23 Omeprazole [Prilosec] 40 mg PO DAILY 10/11/23 Trazodone [Desyrel*] 100 mg PO BEDTIME 10/11/23 - Past Medical/Surgical History Diabetic: No -: Osteoarthritis -: Hypertension -: Hyperlipidemia -: Hypothyroidism -: Depression -: GERD -: -: Multiple knee surgeries -: Cholecystectomy -: Gastric sleeve Psychosocial/ Personal History: Quit smoking 1 year ago in September. Drinks socially on the weekends - Social History Alcohol use: Yes CD- Drugs: No Caffeine use: No Review of Systems General: As per HPI ENT: Unremarkable Gastrointestinal: Unremarkable Musculoskeletal: Unremarkable Physical Examination - Vital Signs Temperature: 98.7 F Blood Pressure: 116/75 Pulse: 60 Respirations: 20 Pulse Ox (%): 95 - Physical Exam General: Alert, In no apparent distress HEENT: Atraumatic, Normocephalic Neck: Supple Respiratory: Clear to auscultation bilaterally Cardiovascular: No edema Capillary refill: <2 Seconds Gastrointestinal: Normal bowel sounds Musculoskeletal: No clubbing Integumentary: No rashes Neurological: Normal gait - Studies Laboratory Data (last 24 hrs) 08/20/24 08/20/24 18:33 15:35 WBC 7.70 Hgb 14.6 Hct 43.1 Plt Count 320 Sodium 136 Potassium 3.4 L BUN 18 Creatinine 0.83 Glucose 112 H Assessment and Plan - Plan Chest pain Hypertension Hypothyroidism Hyperlipidemia Hypokalemia Stress test in the a.m, obtain echo, cardiology consult, EKG reviewed, trops negative Start aspirin Continue statin Continue bupropion Continue levothyroxine Lipid panel reviewed Replace potassium DVT prophylaxis with heparin - Advance Directives Does patient have a Living Will: No Does patient have a Durable POA for Healthcare: No
[2024-08-21 05:47] LABS: Absolute Basophils 0.1 K/uL (0-0.5); Absolute Eosinophils 0.1 K/uL (0-0.5); Absolute Lymphocytes (CBC) 2.4 K/uL (0.7-4.9); Absolute Monocytes 0.5 K/uL (0.1-1.3); Absolute Neutrophil 2.3 K/uL (1.8-8.0); Basophils % 1.2 % (0-1.3); Eosinophils % 1.2 % (0-4.4); Hematocrit 38.1 % (36.0-45.0); Hemoglobin 12.9 g/dL (12.0-15.0); Lymphocytes % 44.4 % (15.3-44.8); MCH 29.8 pg (27.0-35.0); MCHC 33.7 g/dL (32.0-36.0); MCV 88.3 fL (80-100); Monocytes % 9.7 % (3.3-12.3); Neutrophils % 43.5 % (41.7-73.7); Nucleated Red Blood Cells % 0.1 % (0-0); Platelets 233 thou/uL (152-406); RBC Red Blood Cell Count 4.32 M/uL (3.86-4.86); Red Cell Distribution Width 13.3 % (12.1-15.2)
[2024-08-21 06:02] LABS: Anion Gap 6.4 mEq/L (5.0-15.0); Potassium 3.4 mEq/L (3.5-5.1); Troponin High Sensitivity 5.8 pg/mL (<58.9)
[2024-08-21] MEDS ORDERED: ATORVASTATIN 20 MG TAB ONE (07:57)
[2024-08-21] MEDS ORDERED: ASPIRIN EC 81 MG TAB PO ONE (07:58)
[2024-08-21] MEDS ORDERED: HEPARIN 5000 UNIT/ML 1 ML VIAL ONE (07:58)
[2024-08-21] MEDS ORDERED: LEVOTHYROXINE SOD 0.05 MG TABLET ONE (08:02)
[2024-08-21] MEDS: LEVOTHYROXINE SOD 0.1 MG TAB PO SCH (09:00)
[2024-08-21] MEDS: ATORVASTATIN 20 MG TAB PO SCH (09:00)
[2024-08-21] MEDS: BUPROPION HCL XL 150 MG TAB PO SCH (09:00)
[2024-08-21] MEDS: ASPIRIN EC 81 MG TAB PO SCH (09:00)
[2024-08-21] MEDS: LORazepam 2 MG/ML VIAL IV ONE (09:24)
[2024-08-21] MEDS: DIPHENHYDRAMINE 50 MG/ML VIAL IV ONE (09:25)
[2024-08-21] MEDS ORDERED: LORazepam 2 MG/ML VIAL ONE (10:25)
[2024-08-21] MEDS ORDERED: DIPHENHYDRAMINE 50 MG/ML VIAL ONE (10:26)
--- NOTE | 2024-08-21 10:32 | P.CNS ---
Date of Consult: 08/21/24 Chief Complaint: Chest pain History of Present Illness: Patient with PMH of anxiety, depression on multiple medications, presented with chest pain, left sided pressure in nature, radiate to her neck and left arm, patient was admitted not that long ago for same symptoms, refused stress test to panic attack and she is willing to do it this time. Allergies amoxicillin [From Augmentin] Allergy (Verified 10/11/23 08:49) Itching clavulanic acid [From Augmentin] Allergy (Verified 10/11/23 08:49) Itching tramadol Allergy (Verified 10/11/23 08:49) Anaphylaxis Home medications list reviewed: Yes Home Medications: Atorvastatin Calcium 20 mg PO DAILY 10/11/23 Bupropion HCl [Budeprion Xl] 300 mg PO DAILY 10/11/23 Gabapentin 300 mg PO TID 10/11/23 LORazepam [Ativan*] 0.5 mg PO PRN PRN 10/11/23 Levothyroxine Sodium 100 mcg PO DAILY 10/11/23 Omeprazole [Prilosec] 40 mg PO DAILY 10/11/23 Trazodone [Desyrel*] 100 mg PO BEDTIME 10/11/23 Famotidine [Pepcid] 40 mg PO CONT 08/21/24 Sertraline HCl [Zoloft] 50 mg PO DAILY 08/21/24 - Past Medical/Surgical History Diabetic: No -: Osteoarthritis -: Hypertension -: Hyperlipidemia -: Hypothyroidism -: Depression -: GERD -: -: Multiple knee surgeries -: Cholecystectomy -: Gastric sleeve Psychosocial/ Personal History: Quit smoking 1 year ago in September. Drinks socially on the weekends - Social History Alcohol use: Yes CD- Drugs: No Caffeine use: No Review of Systems 10-point ROS is otherwise unremarkable Physical Examination Temp Pulse Resp BP Pulse Ox 98.2 F 58 18 116/76 99 08/21/24 08:00 08/21/24 08:00 08/21/24 09:19 08/21/24 08:00 08/21/24 09:19 General: Alert, In no apparent distress HEENT: Atraumatic, PERRLA, Mucous membr. moist/pink, EOMI, Sclerae nonicteric Neck: Supple, 2+ carotid pulse no bruit, No LAD, Without JVD or thyroid abnormality Respiratory: Clear to auscultation bilaterally, Normal air movement Cardiovascular: Regular rate/rhythm, Normal S1 S2 Gastrointestinal: Normal bowel sounds, No tenderness Musculoskeletal: No tenderness Integumentary: No rashes Neurological: Normal gait, Normal speech, Normal tone, Normal affect Lymphatics: No axilla or inguinal lymphadenopathy Laboratory Data (last 24 hrs) 08/20/24 08/20/24 18:33 15:35 WBC 7.70 Hgb 14.6 Hct 43.1 Plt Count 320 Sodium 136 Potassium 3.4 L BUN 18 Creatinine 0.83 Glucose 112 H - Problems (1) Chest pain Current Visit: No Status: Acute Plan: proceed to stress test, further planing depend on results.
[2024-08-21] MEDS ORDERED: REGADENOSON 0.4 MG/5 ML SYR IV ONE (11:10)
--- NOTE | 2024-08-21 12:34 | EKG ---
Test Date: 2024-08-20 Test Time: 15:18:08 Freight Agent: MITA MEASUREMENT RESULTS: Intervals: Rate: 64 GA: 164 QRSD: 98 QT: 390 QTc: 402 [place]: P: 64 GA: 164 QRS: -57 T: 40 INTERPRETIVE STATEMENTS: Normal sinus rhythm Left axis deviation Anterior infarct, age undetermined Abnormal ECG Compared to ECG 07/22/2024 12:00:36 No significant changes Electronically Signed On 08-21-24 12:32:17 CDT by Kayden Gallardo
--- NOTE | 2024-08-21 13:22 | TREADPHA ---
DX: RULE OUT CHEST PAIN Date of Study: 08/21/2024 Ht: 5' 6 " Wt: 147 lb 0.068 oz Consulting Physician: JOSH MEDICATIONS: TYLENOL, XANAX, ASPIRIN, LIPITOR, WELLBUTRIN XL, HEPARIN, SYNTHROID, MORPHINE, NITROSTAT, DESYREL HISTORY: 58 YEAR OLD FEMALE WITH HISTORY OF CHEST PAIN. ALLERGY TO TRAMADOL AND AUFMENTIN. NO PATIENT MEDICAL HISTORY. PHYSICIAL EXAMINATION: RESTING B.P.: 156/89 RESTING H.R.: 58 RESTING EKG: NORMAL SINUS RHYTHM PROTOCOL: PHARMACOLOGIC EXERCISE TIME: 3:30 B.P. AT [place] STRESS: 134/75 IMPRESSION: LEXISCAN INJECTED. CARDIOLITE INJECTED - SEE NUCLEAR MEDICINE REPORT. NO CHEST PAIN. NO ARRHYTHMIA.
--- NOTE | 2024-08-21 14:35 | RAD REPORT ---
EXAM :Rest Stress Cardiac Imaging CLINICAL HISTORY: Chest pain TECHNIQUE: Rest images: 10.2 mCi technetium 99m sestamibi administered intravenously. Stress images: 28.8 mCi of technetium 99m sestamibi administered intravenously. Cardiac SPECT images obtained COMPARISON: None. FINDINGS: Small, mild area of diminished radiotracer activity involves the anterior left ventricular myocardium on rest and stress images. Left ventricular ejection fraction equals 70% IMPRESSION: Small, mild apparent fixed perfusion defect probably attenuation from overlying soft tissue. An infar ct can have this appearance but probably is less likely. There is no evidence of stressed induced ischemia.
[2024-08-21 17:19] VITALS: O2SAT 100
--- NOTE | 2024-08-21 19:16 | P.DS ---
Admission Date: 08/20/24 Discharge Date: 08/21/24 Disposition: ROUTINE DISCHARGE Discharge Condition: FAIR Reason for Admission: Chest pain Brief History of Present Illness: 58-year-old female with a past medical history of hypertension, GERD, hypothyroidism presented with chest pain that has been ongoing 1 month and a half. She was seen in the emergency room last month. Her hospital workup at that time recommended a stress test. She was unable to do the tress test due to being claustrophobic. She stated she is willing to do the stress test with some anxiety medication. She denies any chest pain with exertion. Associated s ymptoms include dizziness, blurry vision, dizziness. She smoked for 40 years about a half a pack per day. Patient was hospitalized for ACS rule out. Hospital Course: Diagnosis Chest pain Hypertension Hyperlipidemia Hypothyroidism. Patient placed on observation on the medical floor, troponin trended negative. Nuclear stress test was done with did not show any stress-induced ischemia. Patient was evaluated by cardiology Dr. Gallardo. Patient deemed stable for discharge per Dr. Gallardo. Lipid profile showed moderately elevated triglyceride for which patient has been prescribed fish oil. She is advised to take baby aspirin daily. Vital Signs/Physical Exam: Temp Pulse Resp BP Pulse Ox 98.0 F 75 20 123/73 93 08/21/24 17:24 08/21/24 17:24 08/21/24 17:24 08/21/24 17:24 08/21/24 17:24 Laboratory Data at Discharge: WBC 5.30 thou/uL (4.3-10.9) 08/21/24 05:18 Hgb 12.9 g/dL (12.0-15.0) D 08/21/24 05:18 Hct 38.1 % (36.0-45.0) 08/21/24 05:18 Plt Count 233 thou/uL (152-406) D 08/21/24 05:18 Sodium 140 mEq/L (136-145) 08/21/24 05:18 Potassium 3.4 mEq/L (3.5-5.1) L 08/21/24 05:18 BUN 14 mg/dL (7-18) 08/21/24 05:18 Creatinine 0.70 mg/dL (0.55-1.02) 08/21/24 05:18 Glucose 89 mg/dL (74-106) 08/21/24 05:18 Triglycerides 237 mg/dL (<150) H 08/20/24 22:28 Cholesterol 175 mg/dL (<200) 08/20/24 22:28 HDL Cholesterol 73 mg/dL (40-60) H 08/20/24 22:28 Cholesterol/HDL Ratio 2.40 08/20/24 22:28 Home Medications: Atorvastatin Calcium 20 mg PO DAILY 10/11/23 Bupropion HCl [Budeprion Xl] 300 mg PO DAILY 10/11/23 Gabapentin 300 mg PO TID 10/11/23 LORazepam [Ativan*] 0.5 mg PO PRN PRN 10/11/23 Levothyroxine Sodium 100 mcg PO DAILY 10/11/23 Omeprazole [Prilosec] 40 mg PO DAILY 10/11/23 Trazodone [Desyrel*] 100 mg PO BEDTIME 10/11/23 Aspirin [Aspirin EC] 81 mg PO DAILY #30 tab 08/21/24 Famotidine [Pepcid] 40 mg PO CONT 08/21/24 [place]-3/Dha/Epa/Fish Oil [Fish Oil 1,000 mg Softgel] 1 each PO BID #60 cap 08/21/24 Sertraline HCl [Zoloft] 50 mg PO DAILY 08/21/24 New Medications: Aspirin [Aspirin EC] 81 mg PO DAILY #30 tab [place]-3/Dha/Epa/Fish Oil [Fish Oil 1,000 mg Softgel] 1 each PO BID #60 cap Physician Discharge Instructions: Your stress test came back negative. Smoking cessation advised. Your triglyceride level is moderately high You have been prescribed Fish oil to bring your triglyceride level down. Please take 1 baby aspirin daily. Please follow-up with your PCP for lipid profile check within 1 month. Diet: AHA Activity: Ad armando Followup: Jose Patel MD [Primary Care Provider] - Time spent managing pt's care (in minutes): 28
[2024-08-21 22:38] VITALS: BP 127/63; TEMP 98.1
== END 2024-08-21 20:30 | disposition home or self-care (01) ==
LOC: ER 15:11 → ERHOLD 21:31 → 2ND 08-21 16:32
PROVIDERS: ADMIT Family Medicine; ATTEND Internal Medicine
DX: R07.9 Chest pain, unspecified (principal); E87.6 Hypokalemia; I10 Essential (primary) hypertension; K21.9 Gastro-esophageal reflux disease without esophagitis; E03.9 Hypothyroidism, unspecified; E78.5 Hyperlipidemia, unspecified; F41.9 Anxiety disorder, unspecified; F32.A Depression, unspecified; Z87.891 Personal history of nicotine dependence; Z88.5 Allergy status to narcotic agent; Z88.1 Allergy status to other antibiotic agents
CPT/HCPCS: 36415; 71045; 78452; 80048; 80061; 83880; 84484; 85025; 93005; 93017; 94760; 96374; 96375; 99285; A9500; G0378; J1200; J1644; J2270; J2405; J2785

== ENCOUNTER 2024-09-30 14:22 | Emergency (ER) | payer BC ==
--- NOTE | 2024-09-30 15:01 | RAD REPORT ---
EXAM: CT brain without contrast HISTORY: Headache COMPARISON: July 2024 TECHNIQUE: Multiple contiguous axial images were obtained and a CT of the brain without contrast.. Sagittal and coronal reconstruction performed. Automated exposure control, adjustment of the mA and/or kV according to patient size, and/or iterative reconstruction. Unless otherwise specified, incidental f indings do not require dedicated imaging follow-up FINDINGS: An intracranial bleed is not seen Ventricles are normal caliber No extra-axial fluid collection noted Mild low-density paraventricular, deep and subcortical white matter probably ischemic changes seconda ry to small vessel disease. No fluid within the visualized sinuses or mastoids noted. IMPRESSION: No acute intracranial abnormality noted. If the patient continues to have symptoms to suggest an acute intracranial abnormality then MRI of th e brain would be recommended.
[2024-09-30] MEDS ORDERED: dexAMETHasone 10 MG/ML VIAL ONE (15:27)
[2024-09-30] MEDS ORDERED: METOCLOPRAMIDE 10 MG/2mL INJ ONE (15:27)
[2024-09-30] MEDS ORDERED: DIPHENHYDRAMINE 50 MG/ML VIAL ONE (15:27)
[2024-09-30] MEDS ORDERED: KETOROLAC 30 MG/ML INJ ONE (15:27)
[2024-09-30] MEDS ORDERED: NA CHLORIDE 0.9% 1,000 ML ONE (15:28)
[2024-09-30 15:49] LABS: Absolute Eosinophils 0.1 K/uL (0-0.5); Absolute Lymphocytes (CBC) 2.6 K/uL (0.7-4.9); Absolute Neutrophil 4.1 K/uL (1.8-8.0); Basophils % 0.3 % (0-1.3); Eosinophils % 1.5 % (0-4.4); Hemoglobin 15.5 g/dL (12.0-15.0); Lymphocytes % 33.7 % (15.3-44.8); MCH 29.9 pg (27.0-35.0); MCHC 34.5 g/dL (32.0-36.0); MCV 86.7 fL (80-100); MPV 8.2 fL (7.6-11.3); Monocytes % 12.3 % (3.3-12.3); Neutrophils % 52.2 % (41.7-73.7); Nucleated Red Blood Cells % 0.1 % (0-0); Platelets 298 thou/uL (152-406); RBC Red Blood Cell Count 5.18 M/uL (3.86-4.86)
[2024-09-30 16:06] LABS: Albumin 3.7 g/dL (3.4-5.0); Albumin/Globulin Ratio 1.1 (1.1-1.8); Anion Gap 7.2 mEq/L (5.0-15.0); Bilirubin Total 0.9 mg/dL (0.2-1.0); Globulin 3.4 g/dL (2.3-3.5); Potassium 3.2 mEq/L (3.5-5.1); Protein, Total 7.1 g/dL (6.4-8.2)
--- NOTE | 2024-09-30 16:21 | EDPHYS ---
Physician Documentation [facility] Name: Maria Isabel Mills Age: 58 yrs Sex: Female : 1965 Arrival Date: 09/30/2024 Time: 14:22 Bed 14 Private MD: ED Physician Antoni Patel HPI: 09/30 16:24 This 58 yrs old Female presents to ER via Ambulatory with complaints of Headache. kb 16:25 Patient is a 58-year-old female who presents for headache to left back of head that kb started this morning. Reports she vomited once this morning and the headache started after that. Reports her head is tender to touch. Denies fever, photophobia.. Historical: - Allergies: 14:33 Augmentin; hb 14:33 tramadol; hb 14:33 Ultram; hb - PMHx: 14:33 Depression; GERD; Hypercholesterolemia; Hypothyroidism; hb - PSHx: 14:33 section; Cholecystectomy; gastric sleeve; Operative procedure on knee; hb - Immunization history:: Adult Immunizations up to date. - Infectious Disease History:: Denies. - Social history:: Smoking status: Patient reports the use of cigarette tobacco products. ROS: 14:43 Constitutional: As per HPI kb Exam: 14:43 Constitutional: This is a well developed, well nourished patient who is awake, alert, kb and in no acute distress. Head/Face: Normocephalic, atraumatic. Eyes: Pupils equal round and reactive to light, extra-ocular motions intact. Lids and lashes normal. Conjunctiva and sclera are non-icteric and not injected. Cornea within normal limits. Periorbital areas with no swelling, redness, or edema. ENT: Moist Mucous membranes Cardiovascular: Regular rate Respiratory: Respirations even and unlabored. No increased work of breathing. Talking in full sentences Skin: Warm, dry with normal turgor. Normal color. MS/ Extremity: Pulses equal, no cyanosis. Neurovascular intact. Full, normal range of motion. Neuro: Awake and alert, GCS 15, oriented to person, place, time, and situation. Vital Signs: 14:31 BP 153 / 93; Pulse 73; Resp 16; Temp 98.2; Pulse Ox 100% on R/A; Weight 63.96 kg; hb Height 5 ft. 6 in. ; Pain 9/10; 15:49 BP 127 / 86; Pulse 72; Resp 16; Pulse Ox 96% ; cm10 16:35 BP 120 / 92; Pulse 73; Resp 16; Pulse Ox 96% ; cm10 14:31 Body Mass Index 22.76 (63.96 kg, 167.64 cm) hb 14:31 Pain Scale: Adult hb [place] Coma Score: 16:20 Eye Response: spontaneous(4). Motor Response: obeys commands(6). Verbal Response: kb oriented(5). Total: 15. MDM: 14:27 Medical Screening Exam initiated 16:20 Differential diagnosis: cluster headache, migraine, subdural hematoma, tension kb headache. Data reviewed: vital signs, nurses notes. Counseling: I had a detailed discussion with the patient and/or guardian regarding the historical points, exam findings, and any diagnostic results supporting the discharge/admit diagnosis, lab results, radiology results, the need for outpatient follow up, a family practitioner, to return to the emergency department if symptoms worsen or persist or if there are any questions or concerns that arise at home. 16:22 I considered the following discharge prescriptions or medication management in the emergency department I discussed and recommended Over The Counter medications, zofran prescribed for nausea/vomiting as needed. 09/30 15:18 Order name: CBC with Diff; Complete Time: 15:56 kb 09/30 15:18 Order name: CMP; Complete Time: 16:07 kb 09/30 14:38 Order name: CT Head Brain wo Cont; Complete Time: 15:03 kb 09/30 15:04 Order name: IV Start; Complete Time: 15:38 kb Administered Medications: 15:48 Drug: Ketorolac IVP 15 mg IVP once Route: IVP; Site: right wrist; cm10 16:21 Follow up: Response: No adverse reaction cm10 15:48 Drug: NS 0.9% IV 1000 ml IV at 1000 ml once; to be given as a bolus over 60 minutes cm10 Route: IV; Rate: 1000 ml; Site: right wrist; 16:34 Follow up: Response: No adverse reaction; IV Status: Completed infusion; IV Intake: cm10 1000ml 15:48 Drug: metoCLOPramide IVP 10 mg IVP once; over 1 to 2 minutes Route: IVP; Site: right cm10 wrist; 16:21 Follow up: Response: No adverse reaction cm10 15:48 Drug: Decadron - Dexamethasone IVP 10 mg IVP once Route: IVP; Site: right wrist; cm10 16:22 Follow up: Response: No adverse reaction cm10 15:48 Drug: diphenhydrAMINE IVP 25 mg IVP once Route: IVP; Site: right wrist; cm10 16:22 Follow up: Response: No adverse reaction cm10 16:34 Drug: Potassium Chloride PO 20 mEq PO once Route: PO; cm10 16:34 Follow up: Response: Medication administered at discharge. cm10 Disposition: 18:23 I was immediately available on-site in the Emergency Department for consultation in the ms3 care of the patient. Disposition Summary: 09/30/24 16:21 Discharge Ordered Notes: Location: Home kb Condition: Stable kb Diagnosis - Headache kb Followup: kb - With: Emergency Department - When: As needed - Reason: Worsening of condition Followup: kb - With: Private Physician - When: 2 - 3 days - Reason: Recheck today's complaints, Continuance of care, Re-evaluation by your physician Discharge Instructions: - Discharge Summary Sheet kb - General Headache Without Cause, [id number] kb Forms: - Medication Reconciliation Form kb - Antibiotic Education kb - Prescription Opioid Use kb - Patient Portal Instructions kb - Leadership Thank You Letter kb Prescriptions: - Zofran 4 mg Oral tablet - take 1 tablet ORAL route every 6 hours As needed; 12 tablet; Refills: 0, kb Product Selection Permitted Signatures: Dispatcher [employer] EDRoma Ahn, [employer] MGR-Gay Goncalves, RN RN Antoni Pineda DO DO ms3 Erika Saab, RN RN cm10 Corrections: (The following items were deleted from the chart) 14:38 14:38 Head Brain Wo Cont+CT.RAD.BRZ ordered. EDMS EDMS
--- NOTE | 2024-09-30 16:21 | ER ---
Nurse's Notes [facility] Name: Maria Isabel Mills Age: 58 yrs Sex: Female : 1965 Arrival Date: 09/30/2024 Time: 14:22 Bed 14 Private MD: Diagnosis: Headache Presentation: 09/30 14:31 Chief complaint: Posterior headache that radiates to left jaw, neck, and left upper hb back since this morning. Coronavirus screen: At this time, the client does not indicate any symptoms associated with coronavirus-19. Ebola Screen: No symptoms or risks identified at this time. Initial Sepsis Screen: Does the patient meet any 2 criteria? No. Patient's initial sepsis screen is negative. Does the patient have a suspected source of infection? No. Patient's initial sepsis screen is negative. Risk Assessment: Do you want to hurt yourself or someone else? Patient reports no desire to harm self or others. Onset of symptoms was September 30, 2024. 14:31 Method Of Arrival: Ambulatory hb 14:31 Acuity: TOMASZ 3 hb Triage Assessment: 15:49 Pain: Also complains of nausea. cm10 15:49 Headache History: Denies prior headaches. General: Appears in no apparent distress. cm10 comfortable, Behavior is calm, cooperative. Pain: Complains of pain in head. Historical: - Allergies: 14:33 Augmentin; hb 14:33 tramadol; hb 14:33 Ultram; hb - PMHx: 14:33 Depression; GERD; Hypercholesterolemia; Hypothyroidism; hb - PSHx: 14:33 section; Cholecystectomy; gastric sleeve; Operative procedure on knee; hb - Immunization history:: Adult Immunizations up to date. - Infectious Disease History:: Denies. - Social history:: Smoking status: Patient reports the use of cigarette tobacco products. Screenin:50 [facility] ED Fall Risk Assessment (Adult) History of falling in the last 3 months, cm10 including since admission No falls in past 3 months (0 pts) Confusion or Disorientation No (0 pts) Intoxicated or Sedated No (0 pts) Impaired Gait No (0 pts) Mobility Assist Device Used No (0 pt) Altered Elimination No (0 pt) Score/Fall Risk Level 0 - 2 = Low Risk Oriented to surroundings, Maintained a safe environment, Hourly rounding (assess needs \T\ fall precautionary measures) done. Abuse screen: Denies threats or abuse. Denies injuries from another. Nutritional screening: No deficits noted. Tuberculosis screening: No symptoms or risk factors identified. Assessment: 15:20 Reassessment: Patient and/or family updated on plan of care and expected duration. Pain hb level reassessed. Patient is alert, oriented x 3, equal unlabored respirations, skin warm/dry/pink. 15:49 General: Appears in no apparent distress. uncomfortable, Behavior is calm, cooperative, cm10 appropriate for age. Pain: Complains of pain in head Pain currently is 7 out of 10 on a pain scale. Quality of pain is described as a bruise Pain began suddenly. Neuro: No deficits noted. Level of Consciousness is awake, alert, obeys commands, Oriented to person, place, time, situation, Appropriate for age Reports headache. Respiratory: No deficits noted. Airway is patent Respiratory effort is even, unlabored, Respiratory pattern is regular, symmetrical. Musculoskeletal: Range of motion: intact in all extremities. 16:15 Reassessment: Patient appears in no apparent distress at this time. Patient and/or cm10 family updated on plan of care and expected duration. Pain level reassessed. Patient states feeling better. Patient states symptoms have improved. Vital Signs: 14:31 BP 153 / 93; Pulse 73; Resp 16; Temp 98.2; Pulse Ox 100% on R/A; Weight 63.96 kg; hb Height 5 ft. 6 in. ; Pain 9/10; 15:49 BP 127 / 86; Pulse 72; Resp 16; Pulse Ox 96% ; cm10 16:35 BP 120 / 92; Pulse 73; Resp 16; Pulse Ox 96% ; cm10 14:31 Body Mass Index 22.76 (63.96 kg, 167.64 cm) hb 14:31 Pain Scale: Adult hb [place] Coma Score: 16:20 Eye Response: spontaneous(4). Motor Response: obeys commands(6). Verbal Response: kb oriented(5). Total: 15. ED Course: 14:25 Patient arrived in ED. al6 14:26 Roma Burks [facility]C [facility] kb 14:26 Malena Singh MD is Attending Physician. kb 14:26 Antoni Patel DO is Attending Physician. ms3 14:33 Triage completed. hb 14:35 Arm band placed on right wrist. hb 14:49 CT Head Brain wo Cont In Process Unspecified. EDMS 15:20 Patient placed in an exam room, on a stretcher. hb 15:24 Erika Saab, RN is Primary Nurse. cm10 15:38 Initial lab(s) drawn, by me, sent to lab. Inserted saline lock: 20 gauge in right zm wrist, using aseptic technique. Blood collected. Flushed with 10 mL NS. 15:38 CBC with Diff Sent. zm 15:38 CMP Sent. zm 15:50 Patient has correct armband on for positive identification. Bed in low position. Call cm10 light in reach. Side rails up X2. Pulse ox on. NIBP on. Door closed. Lights dimmed. Warm blanket given. 16:35 Provided Education on: Follow-up instructions. cm10 16:35 No provider procedures requiring assistance completed. IV discontinued, intact, cm10 bleeding controlled, No redness/swelling at site. Pressure dressing applied. Administered Medications: 15:48 Drug: Ketorolac IVP 15 mg IVP once Route: IVP; Site: right wrist; cm10 16:21 Follow up: Response: No adverse reaction cm10 15:48 Drug: NS 0.9% IV 1000 ml IV at 1000 ml once; to be given as a bolus over 60 minutes cm10 Route: IV; Rate: 1000 ml; Site: right wrist; 16:34 Follow up: Response: No adverse reaction; IV Status: Completed infusion; IV Intake: cm10 1000ml 15:48 Drug: metoCLOPramide IVP 10 mg IVP once; over 1 to 2 minutes Route: IVP; Site: right cm10 wrist; 16:21 Follow up: Response: No adverse reaction cm10 15:48 Drug: Decadron - Dexamethasone IVP 10 mg IVP once Route: IVP; Site: right wrist; cm10 16:22 Follow up: Response: No adverse reaction cm10 15:48 Drug: diphenhydrAMINE IVP 25 mg IVP once Route: IVP; Site: right wrist; cm10 16:22 Follow up: Response: No adverse reaction cm10 16:34 Drug: Potassium Chloride PO 20 mEq PO once Route: PO; cm10 16:34 Follow up: Response: Medication administered at discharge. cm10 Medication: 16:36 VIS not applicable for this client. cm10 Intake: 16:34 IV: 1000ml; Total: 1000ml. cm10 Outcome: 16:21 Discharge ordered by MD. marquez 16:36 Discharged to home ambulatory, with significant other, cm10 16:36 Condition: good 16:36 Discharge instructions given to patient, Instructed on discharge instructions, follow up and referral plans. medication usage, Demonstrated understanding of instructions, follow-up care, medications, Prescriptions given X 1, 16:37 Patient left the ED. cm10 Signatures: Dispatcher [employer] EDMS Roma Burks, CLINICAL LABORATORY ASSISTANT-C CLINICAL LABORATORY ASSISTANT-Ckb Gay Viera, RN RN Antoni Patel, DO ms3 Kaiser, Erika Maynard RN RN cm10 Daly Che6 Corrections: (The following items were deleted from the chart) 16:36 16:36 Pain: Also complains of cm10 cm10
[2024-09-30] MEDS ORDERED: POTASSIUM CL SA 10 MEQ TAB PO ONE (16:27)
[2024-09-30 16:54] VITALS: TEMP 98.2
[2024-09-30 16:57] VITALS: O2SAT 96
[2024-09-30 16:58] VITALS: BP 120/92
== END 2024-09-30 16:37 | disposition home or self-care (01) ==
LOC: ER 14:22
DX: R51.9 Headache, unspecified (principal); Z72.0 Tobacco use
CPT/HCPCS: 96361; 85025; 36415; 80053; 70450; 96375; 96374; 99284; J2765; J1200; J1100; J7030